=== PATIENT | female | born 1985 | race Caucasian/White ===

== ENCOUNTER 2021-05-03 09:37 | Inpatient (IN) | payer OTHER, SELFPAY ==
[2021-05-03 10:21] VITALS: BP 109/62; PULSE 75; RESP 16; TEMP 36.6; O2SAT 99
[2021-05-03] MEDS: clonazePAM 0.5 MG TABLET PO ×2 (11:38→20:09)
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
[2021-05-03 14:52] VITALS: BMI 20.9
[2021-05-03] MEDS: LORazepam 0.5 MG TABLET PO (16:37)
[2021-05-03] MEDS: Ferrous Sulfate 324 MG TABLET.DR PO (17:56)
[2021-05-03 20:05] VITALS: BP 97/56; PULSE 78; TEMP 36.4; O2SAT 96
[2021-05-03] MEDS: Prazosin HCL 1 MG CAPSULE 2 MG PO (20:08)
[2021-05-03] MEDS: Gabapentin 300 MG CAPSULE PO (20:08)
[2021-05-03] MEDS: Zolpidem Tartrate 5 MG TABLET PO (20:09)
[2021-05-03] MEDS: cloNIDine HCL 0.1 MG TABLET PO (20:24)
[2021-05-04] MEDS: LORazepam 0.5 MG TABLET PO ×2 (00:59→11:04)
[2021-05-04] MEDS: traZODone HCL 50 MG TABLET PO (00:59)
[2021-05-04 06:00] VITALS: BP 99/48; PULSE 79; RESP 17; O2SAT 98
[2021-05-04] MEDS: hydrOXYzine HCL 25 MG TABLET PO (06:23)
[2021-05-04] MEDS: ARIPiprazole 20 MG TABLET PO (08:17)
[2021-05-04] MEDS: buPROPion HCL 100 MG TABLET 200 MG PO ×2 (08:17→16:52)
[2021-05-04] MEDS: Gabapentin 300 MG CAPSULE PO ×3 (08:17→20:43)
[2021-05-04] MEDS: clonazePAM 0.5 MG TABLET PO ×2 (08:17→20:43)
[2021-05-04] MEDS: Venlafaxine HCl ER 150 MG CAP.ER.24H 300 MG PO (08:17)
[2021-05-04] MEDS: Ferrous Sulfate 324 MG TABLET.DR PO ×2 (08:17→16:51)
[2021-05-04] MEDS: Buprenorphine/Naloxone 12/3 mg FILM 1 FILM SUBLINGUAL (08:18)
[2021-05-04 09:10] LABS: Estimated Average Glucose 91 mg/dL; Hemoglobin A1c % 4.8 %
[2021-05-04 09:16] LABS: Alanine Aminotransferase 11 U/L (0-31); Albumin Level 4.1 g/dL (3.5-5.0); Alkaline Phosphatase 60 U/L (39-117); Anion Gap 10 (12-20); Aspartate Amino Transferase 10 U/L (5-31); Bilirubin Total 0.3 mg/dL (0.0-1.0); Blood Urea Nitrogen 12 mg/dL (9-16); Calcium 9.7 mg/dL (8.4-10.2); Carbon Dioxide 29 mmol/L (22-29); Chloride 102 mmol/L (96-108); Cholesterol 172 mg/dL; Creatinine Clr Calc Pharmacy 90.4; Estimated Glomerular Filt Rate > 60; Glucose Fasting 87 mg/dL (60-99); HDL Cholesterol 44 mg/dL; LDL Cholesterol Calculated 108 mg/dl; Potassium 4.4 mmol/L (3.3-5.1); Sodium 137 mmol/L (135-145); Total Protein 7.2 g/dL (6.5-8.0); Triglycerides 104 mg/dL
--- NOTE | 2021-05-04 10:40 | P.PNPSI_ITS ---
Subjective Subjective Date of Service: 05/04/21 Reason For Visit: suicide attempt Interim History: pt requesting increase in suboxone dosing to 16 mg daily, DC of latuda in favor of haldol, and increase in prazosin to 3 mg at HS due to nightmares. all of these requests were accommodated. she also asked for higher dosing of ativan, which was declined. she reported she is in withdrawal from cocaine and opioids and expects to be feeling under the weather for the next several days. no other complaints or requests at the moment. per staff, not attending groups. visible but guarded. isolative. asking for ativan. taking clonidine as well. denies SI/HI/AVH. open to IOP, has housing. Mental Status Exam Mental Status Exam Narrative: A&O. Pt in hospital vu, laying down in bed, thin body habitus. faire[place] contact, attentive. No Tics or Tremors. No abnormal involuntary movements, no PMA/PMR. Calm, guarded. Non-pressured speech, non-spontaneous with regular rate and rhythm, normal volume and prosody. No prolonged speech latency or dysarthria. Mood is ?depressed,? affect is constricted. no SI/HI/AVH expressed. Thoughts are coherent. No known cognitive or memory impairment. Insight/ Judgment limited but adequate. Diagnostics Vital Signs (24Hr): Vital Signs - 24 hr 05/03/21 20:05 05/04/21 06:00 Temperature 97.6 F Pulse Rate 78 79 Respiratory Rate 17 Blood Pressure 97/56 L 99/48 L Pulse Oximetry 96 98 BMI result Body Mass Index 20.9 Labs Results: 05/04/21 08:31 Labs: Laboratory Results - last 48 hr 05/04/21 05/04/21 08:31 08:31 Sodium 137 Potassium 4.4 Chloride 102 Carbon Dioxide 29 Anion Gap 10 L BUN 12 Creatinine 0.90 Estim Creat Clear Calc 90.4 Estimated GFR > 60 Fasting Glucose 87 Estimat Average Glucose 91 Hemoglobin A1c % 4.8 Calcium 9.7 Total Bilirubin 0.3 AST 10 ALT 11 Alkaline Phosphatase 60 Total Protein 7.2 Albumin 4.1 Triglycerides 104 Cholesterol 172 LDL Cholesterol, Calc 108 HDL Cholesterol 44 Medications Medications Current Medications Acetaminophen (Acetaminophen 325 Mg Tablet) 650 mg PO Q6H PRN PRN Reason: Headache/Pain Mild Scale (1-3) Al Hydroxide/Mg Hydroxide (Magnesium Hydrox/Alum Hydrox 30 Ml Oral.Susp) 30 ml PO Q6H PRN PRN Reason: Heartburn/Nausea Albuterol Sulfate (Albuterol Sulfate 90 Mcg 8 Gm Inhaler) 1 puff INHALE RQ4H PRN PRN Reason: sob Albuterol Sulfate (Albuterol Sulfate 90 Mcg 8 Gm Inhaler) 2 puff INHALE Q4H PRN PRN Reason: wheezing Aripiprazole (Aripiprazole 20 Mg Tablet) 20 mg PO DAILY [facility] Last Admin: 05/04/21 08:17 Dose: 20 mg Documented by: Buprenorphine/Naloxone (Buprenorphine/Naloxone 12/3 Mg Film) 1 film SUBLINGUAL DAILY [facility] Last Admin: 05/04/21 08:18 Dose: 1 film Documented by: Bupropion HCl (Bupropion Hcl 100 Mg Tablet) 200 mg PO BID [facility] Last Admin: 05/04/21 08:17 Dose: 200 mg Documented by: Clonazepam (Clonazepam 0.5 Mg Tablet) 0.5 mg PO BID [facility] Last Admin: 05/04/21 08:17 Dose: 0.5 mg Documented by: Clonidine HCl (Clonidine Hcl 0.1 Mg Tablet) 0.1 mg PO TID PRN; Protocol PRN Reason: hyperarousal Last Admin: 05/03/21 20:24 Dose: 0.1 mg Documented by: Ferrous Sulfate (Ferrous Sulfate 324 Mg Tablet.Dr) 324 mg PO BIDWM [facility] Last Admin: 05/04/21 08:17 Dose: 324 mg Documented by: Gabapentin (Gabapentin 300 Mg Capsule) 300 mg PO TID [facility] Last Admin: 05/04/21 08:17 Dose: 300 mg Documented by: Hydroxyzine HCl (Hydroxyzine Hcl 25 Mg Tablet) 25 mg PO BEDTIME PRN PRN Reason: Anxiety Last Admin: 05/04/21 06:23 Dose: 25 mg Documented by: Loperamide HCl (Loperamide Hcl 2 Mg Capsule) 2 mg PO Q6H PRN PRN Reason: diarrhea Lorazepam (Lorazepam 0.5 Mg Tablet) 0.5 mg PO Q8H PRN PRN Reason: Anxiety Last Admin: 05/04/21 00:59 Dose: 0.5 mg Documented by: Lurasidone HCl (Lurasidone Hcl 80 Mg Tablet) 80 mg PO DAILY [facility] Magnesium Hydroxide (Milk Of Magnesia 30 Ml Oral.Susp) 30 ml PO DAILY PRN PRN Reason: Constipation Nicotine Polacrilex (Nicotine Polacrilex 2 Mg Gum) 4 mg BUCCAL Q2H PRN PRN Reason: Nicotine Cravings Ondansetron HCl (Ondansetron Odt 8 Mg Tab.Rapdis) 8 mg TRANSLINGU Q8H PRN PRN Reason: nausea Prazosin HCl (Prazosin Hcl 1 Mg Capsule) 2 mg PO BEDTIME [facility]; Protocol Last Admin: 05/03/21 20:08 Dose: 2 mg Documented by: Trazodone HCl (Trazodone Hcl 50 Mg Tablet) 50 mg PO BEDTIME PRN PRN Reason: Insomnia Last Admin: 05/04/21 00:59 Dose: 50 mg Documented by: Venlafaxine HCl (Venlafaxine Hcl Er 150 Mg Cap.Er.24h) 300 mg PO DAILY [facility] Last Admin: 05/04/21 08:17 Dose: 300 mg Documented by: Zolpidem Tartrate (Zolpidem Tartrate 5 Mg Tablet) 5 mg PO BEDTIME [facility] Last Admin: 05/03/21 20:09 Dose: 5 mg Documented by: Allergies Allergies Allergy/AdvReac Type Severity Reaction Status Date / Time mayonnaise [MAYONNAISE] Allergy Unknown RASH Verified 05/04/21 06:24 seafood Allergy Unknown Rash Verified 05/04/21 06:25 Assessment & Plan Assessment & Plan (1) Bipolar II disorder: Status: Acute Code(s): F31.81 - Bipolar II disorder (2) Opioid use disorder, moderate, in early remission, on maintenance therapy: Status: Acute Code(s): F11.21 - Opioid dependence, in remission (3) Post traumatic stress disorder (PTSD): Status: Acute Code(s): F43.10 - Post-traumatic stress disorder, unspecified Plan Lulu is a 35 y.o. Female who carries a dx of Bipolar II DO, polysubstance abuse, and PTSD. She presented to [facility] via ambulance after her mother called 911 secondary pt ODing on her prescribed Ativan and Ambien, as well as intravenous heroin use. Per crisis note, this was a suicide attempt, however pt now denies that this was intentional. Pt was recently admitted to [facility] 03/21/21 due to depression, SI. On MAT, suboxone from [facility]. She is reporting struggling with anxiety and depression. Plan: Pt says she doesnt want med adjustments at this time, as she just re- started them a week ago. Pt has polypharm of abilify and latuda for unclear reasons. Also on controlled substances despite substance use hx. Will collaborate with OP provider and consider discontinuing ambien, ativan, and reducing polypharm. Placed addiction consult to talk about [facility] support and review suboxone dose. Q15 min safety checks, CV Monitor response to medications. Monitor for safety in the milieu. Discharge on stabilization. Patient seen. Chart reviewed. Discussed with team. Obtain collateral contact info?as needed 05/04: pt requested latuda be DCed and replaced with haldol 5 BID. prazosin increased to 3 mg QHS as of 05/04. suboxone dosing increased from 12 mg daily to 16 mg daily as of 05/04. supportive care for cocaine and opioid w/drawal. T/C IOP. I spent __25____ minutes with the patient and/or on the patient floor today, gre ater than?50% of which was spent counseling/coordinating care. Reason for contiued inpatient stay Substantial Risk for: inability to function and rapid decompensation
[2021-05-04] MEDS: HaloperidoL 5 MG TABLET PO (13:21)
[2021-05-04] MEDS: Buprenorphine/Naloxone 4/1 mg FILM 1 FILM SUBLINGUAL (14:53)
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
[2021-05-04 20:30] VITALS: BP 105/55; PULSE 71; RESP 16; TEMP 36.4; O2SAT 98
[2021-05-04] MEDS: Prazosin HCL 1 MG CAPSULE 3 MG PO (20:43)
[2021-05-04] MEDS: Zolpidem Tartrate 5 MG TABLET PO (20:44)
[2021-05-05] MEDS: traZODone HCL 50 MG TABLET PO (01:57)
[2021-05-05] MEDS: LORazepam 0.5 MG TABLET PO ×4 (01:57→20:25)
[2021-05-05 07:00] VITALS: BMI 21.4
[2021-05-05] MEDS: clonazePAM 0.5 MG TABLET PO (08:41)
[2021-05-05] MEDS: Gabapentin 300 MG CAPSULE PO ×3 (08:41→20:21)
[2021-05-05] MEDS: HaloperidoL 5 MG TABLET PO ×2 (08:41→13:26)
[2021-05-05] MEDS: buPROPion HCL 100 MG TABLET 200 MG PO ×2 (08:42→17:04)
[2021-05-05] MEDS: ARIPiprazole 20 MG TABLET PO (08:42)
[2021-05-05] MEDS: Ferrous Sulfate 324 MG TABLET.DR PO ×2 (08:42→17:04)
[2021-05-05] MEDS: Venlafaxine HCl ER 150 MG CAP.ER.24H 300 MG PO (08:43)
[2021-05-05] MEDS: Buprenorphine/Naloxone 8/2 mg FILM 1 FILM SUBLINGUAL ×2 (08:44→15:01)
[2021-05-05 08:52] VITALS: BP 111/55; PULSE 74; RESP 18; TEMP 36.4; O2SAT 98
--- NOTE | 2021-05-05 13:58 | HO.PSYCHPN ---
Subjective Subjective Date of Service: 05/05/21 Reason For Visit: suicide attempt Interim History: pt denies SI, states she slept well last night. appears bright, in good spirits. says this is because she is no longer in withdrawal. requesting discharge tomorrow, which is agreed to. agrees to SERGIO rascon here, planning to continue with her outpt ativan script. asks to increase prazosin to 4 mg at HS due to continued nightmares. per staff, detoxing yesterday, wanting to rest. feels meds are helping. suboxone dosing was increased yesterday. got ativan 0.5 mg PRN x1. slept after getting PRNs at 0155. calm, cooperative, pleasant. Mental Status Exam Mental Status Exam Narrative: A&O. Pt in street clothes, up and about the unit, thin body habitus.? good eye contact, attentive. No Tics or Tremors. No abnormal involuntary movements, no PMA/PMR. Calm, less guarded. Non-pressured speech, spontaneous with regular rate and rhythm, normal volume and prosody. No prolonged speech latency or dysarthria. Mood is euthymic, affect is constricted.? no SI/HI/AVH expressed.? Thoughts are coherent. No known cognitive or memory impairment. Insight/ Judgment limited but adequate. Diagnostics Vital Signs (24Hr): Vital Signs - 24 hr 05/04/21 20:30 05/05/21 08:52 Temperature 97.6 F 97.6 F Pulse Rate 71 74 Respiratory Rate 16 18 Blood Pressure 105/55 L 111/55 L Pulse Oximetry 98 98 BMI result Body Mass Index 20.9 Labs Results: 05/04/21 08:31 Labs: Laboratory Results - last 48 hr 05/04/21 05/04/21 08:31 08:31 Sodium 137 Potassium 4.4 Chloride 102 Carbon Dioxide 29 Anion Gap 10 L BUN 12 Creatinine 0.90 Estim Creat Clear Calc 90.4 Estimated GFR > 60 Fasting Glucose 87 Estimat Average Glucose 91 Hemoglobin A1c % 4.8 Calcium 9.7 Total Bilirubin 0.3 AST 10 ALT 11 Alkaline Phosphatase 60 Total Protein 7.2 Albumin 4.1 Triglycerides 104 Cholesterol 172 LDL Cholesterol, Calc 108 HDL Cholesterol 44 Medications Medications Current Medications Acetaminophen (Acetaminophen 325 Mg Tablet) 650 mg PO Q6H PRN PRN Reason: Headache/Pain Mild Scale (1-3) Al Hydroxide/Mg Hydroxide (Magnesium Hydrox/Alum Hydrox 30 Ml Oral.Susp) 30 ml PO Q6H PRN PRN Reason: Heartburn/Nausea Albuterol Sulfate (Albuterol Sulfate 90 Mcg 8 Gm Inhaler) 1 puff INHALE RQ4H PRN PRN Reason: sob Albuterol Sulfate (Albuterol Sulfate 90 Mcg 8 Gm Inhaler) 2 puff INHALE Q4H PRN PRN Reason: wheezing Aripiprazole (Aripiprazole 20 Mg Tablet) 20 mg PO DAILY [facility] Last Admin: 05/05/21 08:42 Dose: 20 mg Documented by: Buprenorphine/Naloxone (Buprenorphine/Naloxone 8/2 Mg Film) 1 film SUBLINGUAL BID@0800,1600 [facility] Last Admin: 05/05/21 08:44 Dose: 1 film Documented by: Bupropion HCl (Bupropion Hcl 100 Mg Tablet) 200 mg PO BID@0900,1700 [facility] Last Admin: 05/05/21 08:42 Dose: 200 mg Documented by: Clonidine HCl (Clonidine Hcl 0.1 Mg Tablet) 0.1 mg PO TID PRN; Protocol PRN Reason: hyperarousal Last Admin: 05/03/21 20:24 Dose: 0.1 mg Documented by: Ferrous Sulfate (Ferrous Sulfate 324 Mg Tablet.) 324 mg PO BIDWM [facility] Last Admin: 05/05/21 08:42 Dose: 324 mg Documented by: Gabapentin (Gabapentin 300 Mg Capsule) 300 mg PO TID [facility] Last Admin: 05/05/21 08:41 Dose: 300 mg Documented by: Haloperidol (Haloperidol 5 Mg Tablet) 5 mg PO BID@0900,1300 [facility] Last Admin: 05/05/21 13:26 Dose: 5 mg Documented by: Hydroxyzine HCl (Hydroxyzine Hcl 25 Mg Tablet) 25 mg PO BEDTIME PRN PRN Reason: Anxiety Last Admin: 05/04/21 06:23 Dose: 25 mg Documented by: Loperamide HCl (Loperamide Hcl 2 Mg Capsule) 2 mg PO Q6H PRN PRN Reason: diarrhea Lorazepam (Lorazepam 0.5 Mg Tablet) 0.5 mg PO TID PRN PRN Reason: Anxiety Magnesium Hydroxide (Milk Of Magnesia 30 Ml Oral.Susp) 30 ml PO DAILY PRN PRN Reason: Constipation Nicotine Polacrilex (Nicotine Polacrilex 2 Mg Gum) 4 mg BUCCAL Q2H PRN PRN Reason: Nicotine Cravings Ondansetron HCl (Ondansetron Odt 8 Mg Tab.Rapdis) 8 mg TRANSLINGU Q8H PRN PRN Reason: nausea Prazosin HCl (Prazosin Hcl 1 Mg Capsule) 4 mg PO BEDTIME JOAQUIN; Protocol Trazodone HCl (Trazodone Hcl 50 Mg Tablet) 50 mg PO BEDTIME PRN PRN Reason: Insomnia Last Admin: 05/05/21 01:57 Dose: 50 mg Documented by: Venlafaxine HCl (Venlafaxine Hcl Er 150 Mg Cap.Er.24h) 300 mg PO DAILY [facility] Last Admin: 05/05/21 08:43 Dose: 300 mg Documented by: Zolpidem Tartrate (Zolpidem Tartrate 5 Mg Tablet) 5 mg PO BEDTIME [facility] Last Admin: 05/04/21 20:44 Dose: 5 mg Documented by: Allergies Allergies Allergy/AdvReac Type Severity Reaction Status Date / Time mayonnaise [MAYONNAISE] Allergy Unknown RASH Verified 05/04/21 06:24 seafood Allergy Unknown Rash Verified 05/04/21 06:25 Assessment & Plan Assessment & Plan (1) Post traumatic stress disorder (PTSD): Status: Acute Code(s): F43.10 - Post-traumatic stress disorder, unspecified (2) Opioid use disorder: Status: Acute Code(s): F11.90 - Opioid use, unspecified, uncomplicated Plan Lulu is a 35 y.o. Female who carries a dx of Bipolar II DO, polysubstance abuse, and PTSD. She presented to [facility] ED via ambulance after her mother called 911 secondary pt ODing on her prescribed Ativan and Ambien, as well as intravenous heroin use. Per crisis note, this was a suicide attempt, however pt now denies that this was intentional. Pt was recently admitted to [facility] 03/21/21 due to depression, SI. On MAT, suboxone from [facility]. She is reporting struggling with anxiety and depression. Plan: Pt says she doesnt want med adjustments at this time, as she just re-started them a week ago. Pt has polypharm of abilify and latuda for unclear reasons. Also on controlled substances despite substance use hx. Will collaborate with OP provider and consider discontinuing ambien, ativan, and reducing polypharm. Placed addiction consult to talk about technician terminal and repeater support and review suboxone dose. Q15 min safety checks, CV Monitor response to medications. Monitor for safety in the milieu. Discharge on stabilization. Patient seen. Chart reviewed. Discussed with team. Obtain collateral contact info?as needed 05/04: pt requested latuda be DCed and replaced with haldol 5 BID.? prazosin increased to 3 mg QHS as of 05/04, 4 mg as of 05/05.? suboxone dosing increased from 12 mg daily to 16 mg daily as of 05/04.? supportive care for cocaine and opioid w/drawal.? T/C IOP. discharge 05/06 per pt request. I spent ___25___ minutes with the patient and/or on the patient floor today, greater than?50% of which was spent counseling/coordinating care. Reason for contiued inpatient stay Substantial Risk for: inability to function and rapid decompensation
--- NOTE | 2021-05-05 15:25 | MHC.RECOVRN ---
Met with pt to follow up after Suboxone dose increase. Pt states I feel great. Difficult to engage pt in conversation, very flat affect. Pt denies GI upset and withdrawal symptoms. Plans to continue with Suboxone at [facility] in [place]. Discussed with Jeri Young APRN.
[2021-05-05] MEDS: Zolpidem Tartrate 5 MG TABLET PO (20:21)
[2021-05-05] MEDS: Prazosin HCL 1 MG CAPSULE 4 MG PO (20:21)
[2021-05-05 20:25] VITALS: BP 115/71; PULSE 93; RESP 18; O2SAT 97
[2021-05-06] MEDS: traZODone HCL 50 MG TABLET PO (00:36)
[2021-05-06] MEDS: buPROPion HCL 100 MG TABLET 200 MG PO (08:26)
[2021-05-06] MEDS: HaloperidoL 5 MG TABLET PO (08:26)
[2021-05-06] MEDS: ARIPiprazole 20 MG TABLET PO (08:26)
[2021-05-06] MEDS: Venlafaxine HCl ER 150 MG CAP.ER.24H 300 MG PO (08:27)
[2021-05-06] MEDS: Gabapentin 300 MG CAPSULE PO (08:27)
[2021-05-06] MEDS: Ferrous Sulfate 324 MG TABLET.DR PO (08:27)
[2021-05-06] MEDS: Buprenorphine/Naloxone 8/2 mg FILM 1 FILM SUBLINGUAL (08:28)
[2021-05-06] MEDS: LORazepam 0.5 MG TABLET PO (08:30)
[2021-05-06 08:34] VITALS: BP 120/71; PULSE 81; RESP 18; TEMP 36.3; O2SAT 98
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
--- NOTE | 2021-05-06 11:10 | PC.NURSE ---
Discharge note: Patient alert, oriented x3. Patient reports she is eager for discharge, states her daughter has an event that she would like to attend. Patient denies SI/HI, denies AH/VH. Reviewed discharge planning w/ patient, patient verbalized understanding. No concerns reported.
== END 2021-05-06 11:11 | disposition home or self-care (01) | DRG 753 ==
PROVIDERS: Admitting Provider Psychiatry & Neurology Psychiatry; PCP Internal Medicine; Visit Provider Psychiatry & Neurology Psychiatry
DX: F31.81 Bipolar II disorder (principal); R45.851 Suicidal ideations; F43.10 Post-traumatic stress disorder, unspecified; F11.20 Opioid dependence, uncomplicated; F17.210 Nicotine dependence, cigarettes, uncomplicated; Z71.6 Tobacco abuse counseling; Z91.013 Allergy to seafood; Z79.899 Other long term (current) drug therapy
CPT/HCPCS: 36415; 80053; 80061; 83036

== ENCOUNTER 2024-01-08 08:58 | Emergency (ER) | payer MEDICAID, SELFPAY ==
[2024-01-08 09:07] VITALS: PULSE 75; RESP 16; TEMP 36.3; O2SAT 97; BMI 24.1
== END 2024-01-08 12:20 | disposition left against medical advice (07) ==
PROVIDERS: Emergency Provider Emergency Medicine
DX: K13.79 Other lesions of oral mucosa (principal); Z53.21 Procedure and treatment not carried out due to patient leaving prior to being seen by health care provider
CPT/HCPCS: 99281

== ENCOUNTER 2024-02-25 19:56 | Emergency (ER) | payer MEDICAID, SELFPAY ==
[2024-02-25 20:12] VITALS: BP 168/100; PULSE 126; O2SAT 97
--- NOTE | 2024-02-25 20:13 | ED.GENADULT ---
HPI - General Adult General Stated complaint: flu symptoms Related Data Previous Rx's ?Medication ?Instructions ?Recorded albuterol sulfate 90 mcg/actuation 2 puff inhalation Q4H PRN wheezing 05/06/21 aerosol inhaler (Ventolin HFA) 30 days #1 g aripiprazole 20 mg tablet (Abilify) 20 mg PO DAILY 30 days #30 tabs 05/06/21 buprenorphine 8 mg-naloxone 2 mg 1 film sublingual BID@0800,1600 3 05/06/21 sublingual film (Suboxone) days #6 ea bupropion HCl 100 mg tablet 200 mg (2 x 100 mg) PO 05/06/21 BID@0900,1700 30 days #120 tabs clonidine HCl 0.1 mg tablet 0.1 mg PO TID PRN hyperarousal 30 05/06/21 days #90 tabs ferrous sulfate 324 mg (65 mg 324 mg PO BIDWM 30 days #60 tabs 05/06/21 iron) tablet,delayed release gabapentin 300 mg capsule 300 mg PO TID 30 days #90 caps 05/06/21 haloperidol 5 mg tablet 5 mg PO BID@0900,1300 30 days #60 05/06/21 tabs hydroxyzine HCl 25 mg tablet 25 mg PO BEDTIME PRN Anxiety 30 05/06/21 days #30 tabs lorazepam 0.5 mg tablet 0.5 mg PO TID PRN Anxiety 4 days 05/06/21 #12 tabs prazosin 1 mg capsule 4 mg PO BEDTIME 30 days #120 caps 05/06/21 trazodone 50 mg tablet 50 mg PO BEDTIME PRN Insomnia 30 05/06/21 days #30 tabs venlafaxine 150 mg 300 mg (2 x 150 mg) PO DAILY 30 05/06/21 capsule,extended release 24 hr days #60 caps zolpidem 5 mg tablet 5 mg PO BEDTIME 4 days #4 tabs 05/06/21 Allergies Allergy/AdvReac Type Severity Reaction Status Date / Time [facility]] Allergy Unknown RASH Verified 01/08/24 09:08 seafood Allergy Unknown Rash Verified 01/08/24 09:08 [facility] Past Medical History Medical History (Updated 05/14/21 @ 00:02 by Background Daemon) Opioid use disorder, moderate, in early remission, on maintenance therapy Asthma Social History Social History Household Members: None Housing: Apartment Do you presently have visiting nurse or other home services: Yes (Does not know provider) Patient Tobacco Use Status: Current everyday Tobacco user Tobacco use type: Cigarette Cigarette Packs Per Day: 1 Cigarettes Per Day: 20.0 Years Smoked: 20 years e-Cigarette/Vaping Use: Never Used Second Hand Smoke Exposure: No Substance Use Type: Heroin service: No Sexual orientation: Did not discuss. Course Course Course Narrative: RME, this is a rapid medical exam performed by Osmani Aragon please refer to primary provider for complete H&P- 38-year-old female presents for evaluation of abdominal cramping, vomiting, diarrhea since last night after eating dinner. For labs, urinalysis, viral swabs Discharge Plan Discharge Prescriptions: No Action clonidine HCl 0.1 mg Tablet 0.1 mg PO TID PRN (Reason: hyperarousal) 30 Days Qty: 90 0RF Protocol: Hold for SBP< HOLD for SBP < : 90 haloperidol 5 mg Tablet 5 mg PO BID@0900,1300 30 Days Qty: 60 0RF trazodone 50 mg Tablet 50 mg PO BEDTIME PRN (Reason: Insomnia) 30 Days Qty: 30 0RF prazosin 1 mg Capsule 4 mg PO BEDTIME 30 Days Qty: 120 0RF Protocol: Hold for SBP< HOLD for SBP < : 90 venlafaxine 150 mg Capsule,Extended Release 24hr 300 mg PO DAILY 30 Days Qty: 60 0RF bupropion HCl 100 mg Tablet 200 mg PO BID@0900,1700 30 Days Qty: 120 0RF lorazepam 0.5 mg Tablet 0.5 mg PO TID PRN (Reason: Anxiety) 4 Days Qty: 12 0RF gabapentin 300 mg Capsule 300 mg PO TID 30 Days Qty: 90 0RF hydroxyzine HCl 25 mg Tablet 25 mg PO BEDTIME PRN (Reason: Anxiety) 30 Days Qty: 30 0RF zolpidem 5 mg Tablet 5 mg PO BEDTIME 4 Days Qty: 4 0RF albuterol sulfate [Ventolin HFA] 90 mcg/actuation Hfa Aerosol Inhaler 2 puff inhalation Q4H PRN (Reason: wheezing) 30 Days Qty: 1 0RF aripiprazole [Abilify] 20 mg Tablet 20 mg PO DAILY 30 Days Qty: 30 0RF ferrous sulfate 324 mg (65 mg iron) Tablet,Delayed Release (Dr/Ec) 324 mg PO BIDWM 30 Days Qty: 60 0RF buprenorphine-naloxone [Suboxone] 8-2 mg Film 1 film sublingual BID@0800,1600 3 Days Qty: 6 0RF Print Language: Czech
[2024-02-25 20:14] VITALS: BP 125/80; PULSE 130; RESP 22; TEMP 37; O2SAT 96; BMI 25.6
[2024-02-25 20:42] LABS: MANUAL DIFF FLAG NO
[2024-02-25 20:43] LABS: Basophils Percent Auto 0.5 % (0-2); Hematocrit 36.6 % (37.0-47.0); Hemoglobin 12.7 g/dl (12.0-16.0); Imm Gran Abs Auto 0.03 X10*3/uL (0.00-0.03); Imm Gran Pct Auto 0.4 % (0.0-0.4); Lymphocytes Absolute Auto 1.8 X10*3/uL (1.2-4.9); Lymphocytes Percent Auto 20.8 % (20-40); Mean Corpuscular HGB Conc 34.7 g/dl (31.0-35.0); Mean Corpuscular Hemoglobin 29.3 pg (27.0-33.0); Mean Corpuscular Volume 84.3 fL (80.0-98.0); Monocytes Absolute Auto 0.6 X10*3/uL (0.1-1.2); Monocytes Percent Auto 6.5 % (2-11); Neutrophils Absolute Auto 6.1 x10*3/uL (2.0-8.3); Neutrophils Percent Auto 71.8 % (45-73); Platelet Count 296 X10*3/uL (160-400); Red Blood Count 4.34 X10*6/uL (4.20-5.50); Red Cell Distribution Width 13.6 % (11.0-16.0); White Blood Count 8.4 X10*3/uL (4.8-10.8)
[2024-02-25 21:18] LABS: Alanine Aminotransferase 113 U/L (0-31); Albumin Level 4.7 g/dL (3.5-5.0); Alkaline Phosphatase 90 U/L (39-117); Anion Gap 15 (12-20); Aspartate Amino Transferase 107 U/L (5-31); Bilirubin Total 0.5 mg/dL (0.0-1.0); Blood Urea Nitrogen 16 mg/dL (9-16); Calcium 9.8 mg/dL (8.4-10.2); Carbon Dioxide 19 mmol/L (22-29); Chloride 109 mmol/L (96-108); Creatinine Clr Calc Pharmacy 84.7; Estimated Glomerular Filt Rate > 60; Glucose Random 127 mg/dL (60-115); Influenza A PCR POSITIVE (Negative); Influenza B PCR NEGATIVE (Negative); Lipase 16 U/L (8-78); Potassium 3.5 mmol/L (3.3-5.1); Resp Syncy Virus RNA Qual PCR NEGATIVE (Negative); SARS COV2 PCR INHOUSE NEGATIVE (Negative); Sodium 139 mmol/L (135-145); Total Protein 8.5 g/dL (6.5-8.0)
[2024-02-25 21:24] LABS: HCG Quantitative < 2 mIU/mL
== END 2024-02-26 00:53 | disposition left against medical advice (07) ==
PROVIDERS: Physician Assistant; Emergency Provider Emergency Medicine Emergency Medical Services
DX: R10.9 Unspecified abdominal pain (principal); R11.10 Vomiting, unspecified; R19.7 Diarrhea, unspecified; Z03.818 Encounter for observation for suspected exposure to other biological agents ruled out
CPT/HCPCS: 0241U; 80053; 83690; 84702; 85025; 99281

== ENCOUNTER 2024-02-29 05:04 | Inpatient (IN) | payer OTHER, SELFPAY ==
--- NOTE | ~2024-02-29 | XR_ITS ---
CLINICAL HISTORY: cough, pt concerned for pneumonia 2 views chest Comparison: None Findings: Cardiac and mediastinal contours are normal. Mild interstitial prominence. No focal consolidation. No effusion. No pneumothorax. No acute osseous finding. Impression: Mild interstitial prominence. No focal consolidation. This document has been electronically signed by: Jeffery Jean Baptiste MD on 02/29/2024 06:13:20
[2024-02-29 05:10] VITALS: BP 122/68; PULSE 76; RESP 26; O2SAT 96; BMI 28.1
[2024-02-29 05:22] VITALS: BP 109/62; PULSE 108; RESP 18; TEMP 36.7; O2SAT 96
--- NOTE | 2024-02-29 05:35 | PC.NURSE ---
pt biba from home after she called the ambulance for herself c/o SI w/o a plan. pt reports hx IVDU - heroin/crack. pt noted to be aggressive/agitated upon EMS arrival - threatening to kill staff. refused vitals. pt changed over by security - belongings placed in locker #3. 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 pt repetitively stated, i'm going to kill you! you don't know me. i will find you and i will kill you or i will have someone else do it! pt difficult to redirect but calm/cooperative once pt was provided w/ gingerale and a sandwich. labs/urine obtained/sent to lab. pt noted to have a productive cough during assessment. pt states she is concerned for pneumonia. swabs obtained/sent to lab. chest xray ordered. pt seems to be in no respiratory distress - no sob/wob noted. respirations even/unlabored. pt endorsing SI w/o a plan d/t feeling depressed and being noncompliant w/ medication x 1 month aside from methadone. pt reports she has been noncompliant w/ medication as she states she has been unable to make an appointment w/ a psychiatrist. pt verbalizes she takes 115mg of methadone at [facility] in [place]. methadone dose verified w/ LLOYD Mcnamara at [facility]. verification form filled out/faxed to pharmacy. pt also reporting increased use of IVDU - states she used heroin intravenously x sometime yesterday as well as crack via inhalation. COWS = 6 at this time. pt now resting in room in no apparent distress. plan of care ongoing.
[2024-02-29 05:42] LABS: Basophils Percent Auto 0.2 % (0-2); Hematocrit 35.2 % (37.0-47.0); Hemoglobin 12.4 g/dl (12.0-16.0); Imm Gran Abs Auto 0.06 X10*3/uL (0.00-0.03); Imm Gran Pct Auto 0.4 % (0.0-0.4); Lymphocytes Percent Auto 17.3 % (20-40); MANUAL DIFF FLAG SCAN; Mean Corpuscular HGB Conc 35.2 g/dl (31.0-35.0); Mean Corpuscular Hemoglobin 29.4 pg (27.0-33.0); Mean Corpuscular Volume 83.4 fL (80.0-98.0); Mean Platelet Volume 10.2 fL (9.4-12.3); Monocytes Percent Auto 11.4 % (2-11); Neutrophils Absolute Auto 12.1 x10*3/uL (2.0-8.3); Neutrophils Percent Auto 70.7 % (45-73); Platelet Count 234 X10*3/uL (160-400); Red Blood Count 4.22 X10*6/uL (4.20-5.50); Red Cell Distribution Width 13.7 % (11.0-16.0); SCAN SMEAR FLAG 1; White Blood Count 17.1 X10*3/uL (4.8-10.8)
--- NOTE | 2024-02-29 05:42 | MHC.EDTECH ---
Patient BIBA. patient agitated with having belongings and drink taken away during change attendant process. Patient swearing and threatening staff. Vitals signs were attempted but patient pull off BP cuff and pulse ox and threw them on the ground. Patient changed over with security into green vu and pants. Patient labs obtained and vitals reassessed and documented. Patient to -3 bed. Patient belongings in POD locker 3
[2024-02-29 05:43] LABS: Appearance Urine Cloudy; Color Urine Dark Yellow; Glucose Urine UA Negative (Negative); Leukocyte Esterase Urine Small (1+) (Negative); Nitrite Urine Positive (Negative); Specific Gravity - Urine 1.025 (1.005-1.025); UMIC TRIGGER UACC YES; Urine Blood Moderate (2+) (Negative); Urine Ketones 40 mg/dL (Negative); Urine Protein 30 (1+) mg/dL (Neg-Trace)
[2024-02-29 05:49] VITALS: PULSE 108
[2024-02-29 05:54] LABS: Bacteria Urine 4+ (None Seen); UACC Culture Trigger YES
[2024-02-29 05:56] LABS: Amphetamine Screen Urine Not Detected (Not Detect); Barbiturates, Urine Not Detected (Not Detect); Benzodiazepines Screen Urine POSITIVE (Not Detect); Buprenorphine Scr Not Detected (Not Detect); Cannabinoid Screen Urine Not Detected (Not Detect); Cocaine Screen Urine POSITIVE (Not Detect); Fentanyl, urine POSITIVE (Not Detect); Methadone Screen, Urine Positive (Not Detect); Opiate Screen Urine POSITIVE (Not Detect); Oxycodone Screen Urine Not Detected (Not Detect); Phencyclidine Screen Urine Not Detected (Not Detect)
--- NOTE | 2024-02-29 06:00 | PC.NURSE ---
pt escorted to [employer]X FA[employer]ORY w/ tech as well as security at this time.
[2024-02-29 06:02] LABS: Acetaminophen LAB < 3 mcg/mL (<30); Alanine Aminotransferase 196 U/L (0-31); Albumin Level 4.2 g/dL (3.5-5.0); Alkaline Phosphatase 66 U/L (39-117); Anion Gap 17 (12-20); Aspartate Amino Transferase 310 U/L (5-31); Bilirubin Total 0.6 mg/dL (0.0-1.0); Blood Urea Nitrogen 16 mg/dL (9-16); Calcium 8.2 mg/dL (8.4-10.2); Carbon Dioxide 19 mmol/L (22-29); Chloride 102 mmol/L (96-108); Creatinine Clr Calc Pharmacy 107.6; Estimated Glomerular Filt Rate > 60; Glucose Random 82 mg/dL (60-115); Potassium 4.2 mmol/L (3.3-5.1); Salicylate < 5.0 mg/dL (15-30); Sodium 134 mmol/L (135-145); Total Protein 8.1 g/dL (6.5-8.0)
[2024-02-29 06:03] LABS: SLIDE REVIEW VERIFIED
[2024-02-29 06:19] LABS: Influenza A PCR POSITIVE (Negative); Influenza B PCR NEGATIVE (Negative); Resp Syncy Virus RNA Qual PCR NEGATIVE (Negative); SARS COV2 PCR INHOUSE NEGATIVE (Negative)
--- NOTE | 2024-02-29 06:40 | HE.PHANOTE ---
METHADONE VERIFICATION Dose: 115mg, last dosed 02/28/24 @0852 per Anders DESAI at [facility].
--- NOTE | 2024-02-29 06:43 | ED.GENADULT ---
HPI - General Adult General Chief complaint: Psychiatric Symptoms Stated complaint: SI w/o plan, has heroin crack & cocaine on board Time Seen by Provider: 02/29/24 06:42 Source: patient Mode of arrival: ambulatory Limitations: no limitations History of Present Illness ED Provider: Alberto SPENCE HPI narrative: 38-year-old female history of IV drug abuse, PTSD, bipolar, asthma presenting to the emergency department with suicidal ideation with no particular plan unclear how long she has been feeling this way for. She reports that she uses heroin and crack does not tell us last time she used. Upon arrival to the emergency department she is agitated and uncooperative. She is refusing vitals and stating she wants to kill staff Related Data Home Medications ?Medication ?Instructions ?Recorded ?Confirmed methadone 10 mg/mL oral 115 mg PO DAILY 02/29/24 02/29/24 concentrate (Methadose) Allergies Allergy/AdvReac Type Severity Reaction Status Date / Time mayonnaise [MAYONNAISE] Allergy Unknown RASH Verified 02/29/24 05:15 seafood Allergy Unknown Rash Verified 02/29/24 05:15 Review of Systems Review of Systems: Yes all other systems are reviewed and are negative PMFSH Past Medical History Attestation statement: The following information was validated with the patient. Source: old records reviewed and nursing notes reviewed Medical History Opioid use disorder, moderate, in early remission, on maintenance therapy Asthma Social History Social History Household Members: None Housing: Apartment Do you presently have visiting nurse or other home services: Yes (Does not know provider) Patient Tobacco Use Status: Current everyday Tobacco user Tobacco use type: Cigarette Cigarette Packs Per Day: 1 Cigarettes Per Day: 20.0 Years Smoked: 20 years Smoked in Last 30 Days: No e-Cigarette/Vaping Use: Never Used Second Hand Smoke Exposure: No Use of substances other than those prescribed or required for medical reasons: Yes Substance Use Type: Crack/Cocaine, Heroin and IV Drugs Substance Use Frequency: Daily Last Used Substance: Hours (ago) Any prior treatment program specific to substance use: Yes Advance Directives: No Advance Directives Information Provided: Yes Do you have a plan to hurt others: No Plan Patient : No service: No Sexual orientation: Did not discuss. Physical Exam ED Vital Signs: Vital Signs - 24 hr 02/29/24 05:10 02/29/24 05:22 Temperature 98.0 F Pulse Rate 108 H Respiratory Rate 26 H 18 Blood Pressure 109/62 Pulse Oximetry 96 Oxygen Delivery Method Room Air BMI result Body Mass Index 28.1 vss Appearance: Alert.? Oriented X3.? No acute distress.? Head: Normocephalic, atraumatic, no step-offs or deformities Eyes: Pupils equal, round and reactive to light.? Neck: Normal inspection.? Neck supple.? CVS: Normal heart rate and rhythm.? Pulses normal.? Respiratory: No respiratory distress.? Breath sounds normal.? Abdomen: Soft and nontender.? Skin: Skin warm and dry.? Normal skin color.? Normal skin turgor.? Extremities: No lower extremity edema.? No calf ttp. 5/5 strength to bilateral upper and lower extremities Neuro: Oriented X 3.? No motor deficit.? No sensory deficit. CN 2-12 intact Course Reevaluation(s) Reevaluation #1: CBC with leukocytosis 17.1 no left shift no signs of systemic illness. Chemistry with low sodium 134 patient tolerating p.o.. No signs of hyponatremia on exam. Transaminases elevated in a nearly 2-1 fashion likely secondary to drug/alcohol. UA with evidence of infection which could explain patient's leukocytosis. Will give p.o. Ceftin at this time. No indication for IV antibiotics. Toxicology positive for opiates, methadone, fentanyl, benzos, cocaine. Ethanol, acetaminophen salicylates negative. Patient is noted to be influenza A positive however she has been since 02/25/2024, asymptomatic at this time. No further intervention needed. At this time patient to be placed into observation to allow more time to be evaluated by care team. At time observation started patient common cooperative no acute distress will continue to monitor Time: 08:45 Medications Administered Generic Name Dose Route Start Last Admin Trade Name Freq PRN Reason Stop Dose Admin Cefuroxime Axetil 250 mg 02/29/24 09:00 02/29/24 08:30 Cefuroxime Axetil 250 Mg Tablet PO 03/07/24 08:59 250 mg BID JOAQUIN Administration Methadone HCl 115 mg 02/29/24 09:00 02/29/24 08:28 Methadone Hcl 20 Mg/2 Ml Oral.Conc PO 115 mg DAILY JOAQUIN Administration Discontinued Medications Generic Name Dose Route Start Last Admin Trade Name Dajuan PRN Reason Stop Dose Admin Cefuroxime Axetil 250 mg 02/29/24 06:51 02/29/24 07:38 Cefuroxime Axetil 250 Mg Tablet PO 02/29/24 06:52 Not Given ONCE ONE Medical Decision Making Medical Decision Making [facility] Narrative: 0645 38 year old female presents for SI no particular plan. Not cooperative on arrival. PE benign hx and pe concerning for polysubstance abuse. Patient recently had the flu but no URI sx. Will rule out UTI and electrolyte abnormalities. plan labs, urine, peoples, care Differential Diagnosis Differential Diagnoses: The differential diagnosis associated with the presentation includes ( hx and pe concerning for polysubstance abuse. Patient recently had the flu but no URI sx. Will rule out UTI and electrolyte abnormalities. ) Admission/Observation Consideration of admission/observation: Escalation of care including admission/observation considered Lab Data [facility] Lab Attestation statement: I reviewed the patient's lab results. 02/29/24 05:35 02/29/24 05:35 Labs: Lab Results 02/29/24 Range/Units 05:35 WBC 17.1 H (4.8-10.8) X10*3/uL RBC 4.22 (4.20-5.50) X10*6/uL Hgb 12.4 (12.0-16.0) g/dl Hct 35.2 L (37.0-47.0) % MCV 83.4 (80.0-98.0) fL MCH 29.4 (27.0-33.0) pg MCHC 35.2 H (31.0-35.0) g/dl RDW 13.7 (11.0-16.0) % Plt Count 234 (160-400) X10*3/uL MPV 10.2 (9.4-12.3) fL Immature Gran % (Auto) 0.4 (0.0-0.4) % Neut % (Auto) 70.7 (45-73) % Lymph % (Auto) 17.3 L (20-40) % Routt % (Auto) 11.4 H (2-11) % Eos % (Auto) 0.0 (0-4) % Baso % (Auto) 0.2 (0-2) % Lymph # (Auto) 3.0 (1.2-4.9) X10*3/uL Routt # (Auto) 2.0 H (0.1-1.2) X10*3/uL Eos # (Auto) 0.0 (0.0-0.4) X10*3/uL Baso # (Auto) 0.0 (0.0-0.2) X10*3/uL Abs Immat Gran (auto) 0.06 H (0.00-0.03) X10*3/uL Absolute Neuts (auto) 12.1 H (2.0-8.3) x10*3/uL Absolute Nucleated RBC 0.000 (0.0-0.012) X10*3/uL Nucleated RBC % (auto) 0.0 (0.0-0.2) /100WBC Smear Tech's Comments VERIFIED Sodium 134 L (135-145) mmol/L Potassium 4.2 (3.3-5.1) mmol/L Chloride 102 (96-108) mmol/L Carbon Dioxide 19 L (22-29) mmol/L Anion Gap 17 (12-20) BUN 16 (9-16) mg/dL Creatinine 0.82 (0.5-1.4) mg/dL Estim Creat Clear Calc 107.6 Estimated GFR > 60 Random Glucose 82 (60-115) mg/dL Calcium 8.2 L D (8.4-10.2) mg/dL Total Bilirubin 0.6 (0.0-1.0) mg/dL AST 310 H (5-31) U/L ALT 196 H (0-31) U/L Alkaline Phosphatase 66 (39-117) U/L Total Protein 8.1 H (6.5-8.0) g/dL Albumin 4.2 (3.5-5.0) g/dL Urine Color Dark Yellow Urine Appearance Cloudy Urine pH 6.0 (5.0-9.0) Ur Specific [place] 1.025 (1.005-1.025) Urine Protein 30 (1+) H (Neg-Trace) mg/dL Urine Glucose (UA) Negative (Negative) mg/dL Urine Ketones 40 (Negative) mg/dL Urine Blood Moderate (2+) H (Negative) Urine Nitrite Positive H (Negative) Ur Leukocyte Esterase Small (1+) H (Negative) Urine RBC 6-10 H (0-2) /HPF Urine WBC 6-10 H (0-5) /HPF Ur Squamous Epith Cells 6-10 (0-2) /HPF Urine Bacteria 4+ (None Seen) Hyaline Casts 3-5 (0-2) /LPF Salicylates < 5.0 L (15-30) mg/dL Urine Opiates Screen POSITIVE H (Not Detect) Ur Buprenorphine Scrn Not Detected (Not Detect) ng/mL Ur Oxycodone Screen Not Detected (Not Detect) ng/mL Urine Methadone Screen Positive H (Not Detect) ng/mL Urine Fentanyl Screen POSITIVE H (Not Detect) Acetaminophen < 3 (<30) mcg/mL Ur Barbiturates Screen Not Detected (Not Detect) Ur Phencyclidine Scrn Not Detected (Not Detect) Ur Amphetamines Screen Not Detected (Not Detect) U Benzodiazepines Scrn POSITIVE H (Not Detect) Urine Cocaine Screen POSITIVE H (Not Detect) U Marijuana (THC) Screen Not Detected (Not Detect) Ethyl Alcohol < 10 mg/dL Influenza Type A (PCR) POSITIVE A (Negative) Influenza Type B (PCR) NEGATIVE (Negative) RSV RNA Qual (PCR) NEGATIVE (Negative) SARS-CoV-2 RNA (RT-PCR) NEGATIVE (Negative) External Record Review External record reviewed: Inpatient record, Office record, Outpatient record, Prior outpatient labs, Prior outpatient radiology, Primary care record and Outside ED record Prescription Management I considered prescription management with: Antibiotic Chronic Conditions Patient?s care impacted by: Other (IVDA ) Critical Care Time Critical Care Time Critical Care Time: No Discharge Plan Discharge Clinical Impression: Bipolar II disorder, Opioid use disorder, Influenza A, UTI (urinary tract infection) Patient Disposition: Still a Patient Prescriptions: No Action methadone [Methadose] 10 mg/mL Concentrate 115 mg PO DAILY Interventions: Bond-Suicide Risk Severity Scale Last Done: 02/29/24 05:40 Print Language: Hong Konger
[2024-02-29 06:46] LABS: Ethanol < 10 mg/dL
--- NOTE | 2024-02-29 07:07 | PC.NURSE ---
Assumed care of patient at 0645, patient appears to be in no apparent distress this am. Continue plan for care team derek
--- OUTSIDE RECORDS SUMMARY | 2024-02-29 08:04 | XMS_ITS | Clinical Summary ---
Author Organization Unknown Care Team Providers Care Back Grinder Name Role Phone SWETA GUILLEN, RAF RO RN, CLINICAL NAVIGATOR, DEEPA Brownlee Payers Payer Name Policy Type Policy Number Effective Date Expira tion Date [facility] [place] [place] [employer] [id number] MEDICAID [facility] [id number] Problems Condition Name Condition Details Condition Category Status Onset Date Resolution Date Last Treatment Date Treating Clinician Comments MAJOR DEPRESSIVE DISORDER, RECURRENT, UNSPECIFIED Active 03-24 00:00: 00 Allergies, Adverse Reactions, Alerts Allergy Name Allergy Type Status Severity Reaction(s) Onset Date Inactive Date Treating Clinician Comments NKA Propensity to adverse reactions Active 2021-10 13:01:3 2 Medications Ordered Medication Name Filled Medication Name Start Date Stop Date Current Medication? Ordering Clinician Indication Dosage Frequency Signature (SIG) Comments Components ProAir HFA 90 mcg/actuati on aerosol inhaler 03-21 00:00: 00 Yes [id number] 2 puff EVERY 4 HOURS 2 puff EVERY 4 HOURS (route: inhalation ) Med Classific ation: Respirato ry Therapy Agents ferrous sulfate 325 mg (65 mg iron) tablet,wally yed release 03-21 00:00: 00 11-24 00:00 :00 No [id number] 1 tablet DAILY 1 tablet DAILY (route: oral) Med Classific ation: Electroly te Balance-N utritiona l Products gabapentin 300 mg capsule 02-27 00:00: 00 11-24 00:00 :00 No [id number] 1 capsule 3 TIMES DAILY 1 capsule 3 TIMES DAILY (route: oral) Med Classific ation: Central Nervous System Agents docusate sodium 100 mg capsule 03-21 00:00: 00 Yes [id number] 1 capsule 2 TIMES DAILY 1 capsule 2 TIMES DAILY (route: oral) Med Classific ation: Gastroint estinal Therapy Agents Abilify 10 mg tablet 03-27 00:00: 00 Yes [id number] 2 tablet DAILY 2 tablet DAILY (route: oral) Med Classific ation: Central Nervous System Agents Ambien 5 mg tablet 03-27 00:00: 00 Yes [id number] 2 tablet BEDTIME 2 tablet BEDTIME (route: oral) Med Classific ation: Central Nervous System Agents Effexor XR 150 mg capsule,ext ended release 03-27 00:00: 00 Yes [id number] 2 capsule DAILY 2 capsule DAILY (route: oral) Med Classific ation: Central Nervous System Agents Latuda 80 mg tablet 03-27 00:00: 00 11-24 00:00 :00 No [id number] 1 tablet DAILY 1 tablet DAILY (route: oral) Med Classific ation: Central Nervous System Agents lorazepam 0.5 mg tablet 03-27 00:00: 00 Yes [id number] .5 tablet 2 TIMES DAILY .5 tablet 2 TIMES DAILY (route: oral) Med Classific ation: Central Nervous System Agents prazosin 1 mg capsule 03-27 00:00: 00 Yes [id number] 2 capsule BEDTIME 2 capsule BEDTIME (route: oral) Med Classific ation: Cardiovas cular Therapy Agents Suboxone 4 mg-1 mg sublingual film 03-27 00:00: 00 11-24 00:00 :00 No [id number] 1 film 2 TIMES DAILY 1 film 2 TIMES DAILY (route: sublingual ) Med Classific ation: Chemical Dependenc y, Agents to Treat Wellbutrin SR 200 mg tablet, 12 hr sustained-r elease 03-27 00:00: 00 Yes [id number] 1 tablet 2 TIMES DAILY 1 tablet 2 TIMES DAILY (route: oral) Med Classific ation: Central Nervous System Agents ondansetron 4 mg disintegrat ing tablet 11-24 00:00: 00 Yes [id number] 1 tablet EVERY 6 HOURS 1 tablet EVERY 6 HOURS (route: oral) Med Classific ation: Gastroint estinal Therapy Agents trazodone 50 mg tablet 11-24 00:00: 00 Yes [id number] 1 tablet BEDTIME 1 tablet BEDTIME (route: oral) Med Classific ation: Central Nervous System Agents Vital Signs Vital Name Observation Time Observation Value Commen ts Temperature 2022-03-10 09:23:00.000 97.5 [degF] Temperature 2022-03-09 08:37:00.000 97.9 [degF] Temperature 2022-03-08 10:02:00.000 97.9 [degF] Temperature 2022-03-07 09:16:00.000 97.9 [degF] Temperature 2022-03-06 09:52:00.000 98.9 [degF] Temperature 2022-03-03 09:41:00.000 97.8 [degF] Temperature 2022-03-02 10:19:00.000 97.9 [degF] Temperature 2022-03-01 10:50:00.000 97.9 [degF] Temperature 2022-02-22 09:27:00.000 99 [degF] Temperature 2022-02-21 09:31:00.000 98 [degF] Temperature 2022-02-20 08:28:00.000 98.9 [degF] Temperature 2022-02-17 10:16:00.000 98 [degF] Temperature 2022-02-16 08:08:00.000 97.8 [degF] Temperature 2022-02-15 09:15:00.000 99 [degF] Temperature 2022-02-14 09:53:00.000 97.6 [degF] Temperature 2022-02-10 09:54:00.000 98 [degF] Temperature 2022-02-09 09:48:00.000 98.5 [degF] Temperature 2022-02-07 09:16:00.000 98.1 [degF] Temperature 2022-02-06 09:39:00.000 98 [degF] Temperature 2022-02-03 09:35:00.000 98 [degF] Temperature 2022-02-02 09:04:00.000 97.9 [degF] Temperature 2022-02-01 09:48:00.000 98.8 [degF] Temperature 2022-01-31 09:28:00.000 98.8 [degF] Temperature 2022-01-30 10:12:00.000 97.9 [degF] Temperature 2022-01-27 08:46:00.000 98 [degF] Temperature 2022-01-26 10:02:00.000 97.8 [degF] Temperature 2022-01-25 09:41:00.000 97.9 [degF] Temperature 2022-01-24 09:02:00.000 97.9 [degF] Temperature 2022-01-23 09:03:00.000 97.9 [degF] Pulse 2022-02-06 09:39:00.000 84 /min Respirations 2022-02-06 09:39:00.000 18 /min Systolic Blood Pressure 2022-02-06 09:39:00.000 142 mm [Hg] Diastolic Blood Pressure 2022-02-06 09:39:00.000 87 mm [Hg] Plan of Treatment Planned Activity Planned Date Details Comments Future Scheduled Test SKILLED NU RSE TO EVALUATE PATIENT, IDENTIFY PRIMARY AND CO-MORBID CONDITIONS CODED PER CODING GUIDELINES, AND DEVELOP PATIENT SPECIFIC PLAN OF CARE THAT INCLUDES PATIENT GOAL FOR HOME HEALTH. CLINICAL SUMMARY (SOC/KELVIN/RECERT, 10 DAY, 60 DAY) THE PATIENT IS RECEIVING HOMECARE DUE TO DIAGNOSES OF MAJOR DEPRESSION RECENT HOSPITALIZATION/INPATIENT ADMISSION RELATED TO: NEW OR CHANGED MEDICATIONS: PATIENT LIVING SITUATION/CAREGIVER STATUS: RECENT FALLS: NO SUMMARIZE SKILLED NEED: DAILY MEDICATION MANAGEMENT MEDICATIONS TO BE PREPOURED BY NURSE ADDITIONAL DISCIPLINES NEEDED OR DECLINED ORDERED SERVICES: [code = SKILLED NURSE TO EVALUATE PATIENT, IDENTIFY PRIMARY AND CO-MORBID CONDITIONS CODED PER CODING GUIDELINES, AND DEVELOP PATIENT SPECIFIC PLAN OF CARE THAT INCLUDES PATIENT GOAL FOR HOME HEALTH. CLINICAL SUMMARY (SOC/KELVIN/RECERT, 10 DAY, 60 DAY) THE PATIENT IS RECEIVING HOMECARE DUE TO DIAGNOSES OF MAJOR DEPRESSION RECENT HOSPITALIZATION/INPATIENT ADMISSION RELATED TO: NEW OR CHANGED MEDICATIONS: PATIENT LIVING SITUATION/CAREGIVER STATUS: RECENT FALLS: NO SUMMARIZE SKILLED NEED: DAILY MEDICATION MANAGEMENT MEDICATIONS TO BE PREPOURED BY NURSE ADDITIONAL DISCIPLINES NEEDED OR DECLINED ORDERED SERVICES: ] Future Scheduled Test SKILLED NU RSE TO ADMINISTER MEDICATIONS AND PRE-POUR MEDICATIONS DAILY PER MEDICATION LIST. [code = SKILLED NURSE TO ADMINISTER MEDICATIONS AND PRE-POUR MEDICATIONS DAILY PER MEDICATION LIST.] Future Scheduled Test SKILLED NU RSE TO PRE-POUR MEDICATION PER MEDICATION LIST PREPOURED DAILY [code = SKILLED NURSE TO PRE-POUR MEDICATION PER MEDICATION LIST PREPOURED DAILY ] Future Scheduled Test SKILLED NU RSE FOR O/A AND SKILLED TEACHING RELATED TO MANAGEMENT OF DEPRESSIVE SYMPTOMS AND/OR DEPRESSION INCLUDING PARTICIPATION IN [facility] SPECIALTY PROGRAM. SN TO REPORT SIGNIFICANT CHANGE IN DEPRESSIVE SYMPTOMS TO CLINICAL PROVIDER FOR EARLY INTERVENTION. [code = SKILLED NURSE FOR O/A AND SKILLED TEACHING RELATED TO MANAGEMENT OF DEPRESSIVE SYMPTOMS AND/OR DEPRESSION INCLUDING PARTICIPATION IN [facility] SPECIALTY PROGRAM. SN TO REPORT SIGNIFICANT CHANGE IN DEPRESSIVE SYMPTOMS TO CLINICAL PROVIDER FOR EARLY INTERVENTION.] Future Scheduled Test SKILLED NU RSE TO O/A OF PATIENTS MENTAL/BEHAVIORAL STATUS, ASSESS VITAL SIGNS EACH VISIT, ALLOW 2 PRNS FOR MEDICATION MANAGEMENT. [code = SKILLED NURSE TO O/A OF PATIENTS MENTAL/BEHAVIORAL STATUS, ASSESS VITAL SIGNS EACH VISIT, ALLOW 2 PRNS FOR MEDICATION MANAGEMENT.] Future Scheduled Test SKILLED NU RSE FOR O/A OF GENERAL HEALTH STATUS OF PAIN, CARDIAC, RESPIRATORY, GASTROINTESTINAL, GENITOURINARY, SKIN, NEUROLOGIC, ENDOCRINE SYSTEMS TO IDENTIFY CHANGES ASSOCIATED WITH EXACERBATION FOR EARLY INTERVENTION OF COMPLICATIONS [code = SKILLED NURSE FOR O/A OF GENERAL HEALTH STATUS OF PAIN, CARDIAC, RESPIRATORY, GASTROINTESTINAL, GENITOURINARY, SKIN, NEUROLOGIC, ENDOCRINE SYSTEMS TO IDENTIFY CHANGES ASSOCIATED WITH EXACERBATION FOR EARLY INTERVENTION OF COMPLICATIONS ] Future Scheduled Test SKILLED NU RSE MAY PICKUP AND TRANSPORT MEDICATIONS [code = SKILLED NURSE MAY PICKUP AND TRANSPORT MEDICATIONS] Goal 2022-01-18 Patient Goal - BE MEDICATION COMPLIANT Goal 2022-03-14 Patient Goal - BE MEDICATION COMPLIANT Goal Provider Goal - A PLAN OF CARE WILL BE ESTABLISHED THAT MEETS PATIENT'S ALF NEEDS AND INCLUDES PATIENT GOAL FOR HOME HEALTH. Goal Provider Goal - PATIENT WILL COMPLY WITH MEDICATION WHEN SKILLED NURSE ADMINISTERS AND PRE-POURS MEDICATION. Goal Provider Goal - PATIENT WILL COMPLY WITH MEDICATION WHEN SKILLED NURSE PRE-POURS MEDICATION. Goal Provider Goal - PATIENT WILL REMAIN SAFE WITHOUT DECOMPENSATION IN DEPRESSIVE CONDITION, WHILE MAINTAINING OPTIMAL LEVEL OF MENTAL HEALTH AND WELL BEING. Goal Provider Goal - ALTERED MENTAL/BEHAVIORAL STATUS WILL BE IDENTIFIED PROMPTLY AND INTERVENTION INITIATED QUICKLY TO MINIMIZE ASSOCIATED RISKS Goal Provider Goal - CHANGE IN GENERAL HEALTH STATUS WILL BE IDENTIFIED AND REPORTED TO PHYSICIAN FOR PROMPT INTERVENTION TO MINIMIZE ASSOCIATED RISKS THROUGHOUT CERTIFICATION PERIOD. Reason for Visit INDEPENDENT IN THE HOME Encounters Start Date/Time End Date/Time Encounter Type Admission Type Attending Clinicians Care Facility Care Department Encounter ID Discharge Date Discharge Status Discharge Condition Discharge Reason Percent Goals Met 2021-11-24 00:00:00 2022-03-14 00:00:00 Outpatient RECERTIFIC DEEPA BEAVERS [facility] [id number] 00:00:00 DISCHARGE TO HOME OR SELF CARE INDEPENDEN T IN THE HOME PER CLIENT REQUEST 85.71
--- OUTSIDE RECORDS SUMMARY | 2024-02-29 08:04 | XMS_ITS | Clinical Summary ---
Author Organization Unknown Care Team Providers Care Molder Inflated Ball Name Role Phone SWETA GUILLEN, RAF RO RN, CLINICAL NAVIGATOR, DEEPA Brownlee Payers Payer Name Policy Type Policy Number Effective Date Expira tion Date [facility] ([facility] [place] [facility] [id number] MEDICAID [facility] [id number] Problems Condition Name Condition Details Condition Category [...] on aerosol inhaler 03-21 00:00: 00 Yes [id number] 2 puff EVERY 4 HOURS 2 puff EVERY 4 HOURS (route: inhalation ) Med Classific ation: Respirato ry Therapy Agents ferrous sulfate 325 mg (65 mg iron) tablet,wally yed release 03-21 00:00: 00 11-24 00:00 :00 No [id number] 1 tablet DAILY 1 tablet DAILY (route: oral) Med Classific ation: Electroly te Balance-N utritiona l Products gabapentin 300 mg capsule 02-27 00:00: 00 11-24 00:00 :00 No [id number] 1 capsule 3 TIMES DAILY 1 capsule 3 TIMES DAILY (route: oral) Med Classific ation: Central Nervous System Agents docusate sodium 100 mg capsule 03-21 00:00: 00 Yes [id number] 1 capsule 2 TIMES DAILY 1 capsule 2 TIMES DAILY (route: oral) Med Classific ation: Gastroint estinal Therapy Agents Abilify 10 mg tablet 03-27 00:00: 00 Yes [id number] 2 tablet DAILY 2 tablet DAILY (route: oral) Med Classific ation: Central Nervous System Agents Ambien 5 mg tablet 03-27 00:00: 00 Yes [id number] 2 tablet BEDTIME 2 tablet BEDTIME (route: oral) Med Classific ation: Central Nervous System Agents Effexor XR 150 mg capsule,ext ended release 03-27 00:00: 00 Yes [id number] 2 capsule DAILY 2 capsule DAILY (route: oral) Med Classific ation: Central Nervous System Agents Latuda 80 mg tablet 03-27 00:00: 00 11-24 00:00 :00 No [id number] 1 tablet DAILY 1 tablet DAILY (route: oral) Med Classific ation: Central Nervous System Agents lorazepam 0.5 mg tablet 03-27 00:00: 00 Yes [id number] .5 tablet 2 TIMES DAILY .5 tablet 2 TIMES DAILY (route: oral) Med Classific ation: Central Nervous System Agents prazosin 1 mg capsule 03-27 00:00: 00 Yes [id number] 2 capsule BEDTIME 2 capsule BEDTIME (route: oral) Med Classific ation: Cardiovas cular Therapy Agents Suboxone 4 mg-1 mg sublingual film 03-27 00:00: 00 11-24 00:00 :00 No [id number] 1 film 2 TIMES DAILY 1 film 2 TIMES DAILY (route: sublingual ) Med Classific ation: Chemical Dependenc y, Agents to Treat Wellbutrin SR 200 mg tablet, 12 hr sustained-r elease 03-27 00:00: 00 Yes [id number] 1 tablet 2 TIMES DAILY 1 tablet 2 TIMES DAILY (route: oral) Med Classific ation: Central Nervous System Agents ondansetron 4 mg disintegrat ing tablet 11-24 00:00: 00 Yes [id number] 1 tablet EVERY 6 HOURS 1 tablet EVERY 6 HOURS (route: oral) Med Classific ation: Gastroint estinal Therapy Agents trazodone 50 mg tablet 11-24 00:00: 00 Yes [id number] 1 tablet BEDTIME 1 tablet BEDTIME (route: [...] DEPRESSIVE SYMPTOMS AND/OR DEPRESSION INCLUDING PARTICIPATION IN [facility] SPECIALTY PROGRAM. SN TO REPORT SIGNIFICANT CHANGE IN DEPRESSIVE SYMPTOMS TO CLINICAL PROVIDER FOR EARLY INTERVENTION. [code = SKILLED NURSE FOR O/A AND SKILLED TEACHING RELATED TO MANAGEMENT OF DEPRESSIVE SYMPTOMS AND/OR DEPRESSION INCLUDING PARTICIPATION IN [facility] SPECIALTY PROGRAM. SN TO REPORT SIGNIFICANT CHANGE [...] CARE WILL BE ESTABLISHED THAT MEETS PATIENT'S LONG TERM NEEDS AND INCLUDES PATIENT GOAL FOR HOME [...] 00:00:00 2022-03-14 00:00:00 Outpatient RECERTIFIC DEEPA BEAVERS [facility] [id number] 00:00:00 DISCHARGE TO HOME OR SELF CARE INDEPENDEN T IN THE HOME PER CLIENT REQUEST 85.71
[2024-02-29] MEDS: methADONE HCl 20 MG/2 ML ORAL.CONC 115 MG PO (08:28)
[2024-02-29] MEDS: cefuroxime axetiL 250 MG TABLET PO ×2 (08:30→20:17)
[2024-02-29 10:47] LABS: UPreg QC Valid YES
[2024-02-29 10:48] LABS: Urine Pregnancy NEGATIVE (NEGATIVE)
--- NOTE | 2024-02-29 11:52 | PC.NURSE ---
Patient refusing EKG
--- NOTE | 2024-02-29 12:17 | PC.NURSE ---
pt heard yelling for this RN through bedroom door. when checking on patient, pt states so you people just dont fucking feed patients around here ashley . This RN inquired if patient wanted something for food/drink. Pt states yeah I fucking want a pudding, christopher ty and real fucking food . This RN explained that we would be receiving lunch soon but at this time we have pudding, crackers, pre-made sandwhiches and such. Pt then called this RN a fucking bitch . Pt was provided with two cheese sticks, three puddings, apple juice, gingerale, and two sandwiches. Pt also reminded if she needs anything she is more than welcome to come to the nurses station and inquire. Pt became defensive, yelling at this RN. Pt requesting tylenol at this time
[2024-02-29] MEDS: Acetaminophen 325 MG TABLET 975 MG PO (12:25)
[2024-02-29 12:28] VITALS: BP 113/87; PULSE 91; RESP 18; TEMP 38.4; O2SAT 97
--- NOTE | 2024-02-29 12:28 | PC.NURSE ---
pt medicated for fever with 975mg Tylenol
[2024-02-29 15:37] VITALS: RESP 16
--- NOTE | 2024-02-29 21:02 | PHA.MEDREC ---
Pharmacy Consult ? Medication Reconciliation Pharmacy has reviewed the medication reconciliation completed by nursing.
[2024-02-29 23:15] VITALS: BP 134/81; PULSE 74; TEMP 36.5; O2SAT 97
[2024-03-01 00:11] VITALS: BMI 25.1
--- NOTE | 2024-03-01 01:44 | PC.ADMIT ---
Pt is a 38 yo female admitted to the unit after referral from CARE team via the POD. Pt arrived on unit at 2310 on 02/29/24. Pt signed a CV. Pt medical issues are asthma, UTI and Influenza A. Pt denied etoh use but reports IV heroin and crack via inhalation. Utox + for opiates, methadone, fentanyl, benzo's and cocaine. Pt reports they are homeless. Per crisis report, precipitant to admission was medication non-compliance (with exception of methadone) for one month, not following-up with OP providers and currently being homeless. Pt reports increasing depression with thoughts of SI caused her to call EMS for transport to ED. Pt presents as disheveled and wearing hospital johnnies. Pt was feeling lousy and refused to participate in admission process. Pt was instructed to use a mask d/t influenza dx. Provider power generation turbine room operator notified of admission and orders obtained. Placed on 5 minute safety checks in anteroom. Pt reports feeling safe here.
[2024-03-01] MEDS: cefuroxime axetiL 250 MG TABLET PO ×2 (08:25→20:38)
[2024-03-01] MEDS: methADONE HCl 20 MG/2 ML ORAL.CONC 115 MG PO (08:25)
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
[2024-03-01] MEDS: Throat Lozenge, Medicated LOZENGE 1 LOZENGE MUCOUS MEM (08:53)
[2024-03-01] MEDS: guaiFENesin DM 100/10/5 ML 5 ML SYRUP PO ×2 (08:53→20:40)
[2024-03-01] MEDS: Acetaminophen 325 MG TABLET 650 MG PO ×2 (08:53→20:38)
[2024-03-01 20:30] VITALS: BP 109/57; PULSE 54; RESP 16; TEMP 36.3; O2SAT 99
[2024-03-01] MEDS: Gabapentin 100 MG CAPSULE 200 MG PO (20:38)
[2024-03-01] MEDS: traZODone HCL 50 MG TABLET PO (20:54)
[2024-03-02] MEDS: methADONE HCl 20 MG/2 ML ORAL.CONC 115 MG PO (08:07)
[2024-03-02] MEDS: cefuroxime axetiL 250 MG TABLET PO ×2 (08:11→21:21)
[2024-03-02 19:51] VITALS: BP 95/55; PULSE 52; RESP 16; TEMP 36.4; O2SAT 93
[2024-03-02] MEDS: Mirtazapine 7.5 MG TABLET PO (21:21)
[2024-03-02] MEDS: Gabapentin 100 MG CAPSULE 200 MG PO (21:21)
[2024-03-02 21:22] VITALS: BP 101/61; PULSE 57; RESP 18; TEMP 36.5; O2SAT 97
[2024-03-02] MEDS: Acetaminophen 325 MG TABLET 650 MG PO (21:22)
[2024-03-02] MEDS: traZODone HCL 50 MG TABLET PO (21:22)
[2024-03-03] MEDS: methADONE HCl 20 MG/2 ML ORAL.CONC 115 MG PO (08:22)
[2024-03-03] MEDS: cefuroxime axetiL 250 MG TABLET PO ×2 (08:22→21:55)
[2024-03-03] MEDS: Acetaminophen 325 MG TABLET 650 MG PO (09:27)
[2024-03-03] MEDS: ARIPiprazole 5 MG TABLET PO (15:50)
--- NOTE | 2024-03-03 15:54 | HO.PSYCHPN ---
Subjective Subjective Date of Service: 03/03/24 Reason For Visit: SI Interim History: states she is refusing latuda because if she takes it on an empty stomach she feels nauseated. agreeable to take abilify. states she is diagnosed with schizophrenia and is experiencing psychotic Sx. per staff, on Q5 min checks. flu. ante-room. refusing latuda. refusing labs. Mental Status Exam Mental Status Exam Narrative: A&O. Pt in hospital [facility], laying down in bed, thin body habitus. poor eye contact, fairly attentive. No Tics or Tremors. No abnormal involuntary movements, no PMA/PMR. Calm, guarded. Non-pressured speech, non-spontaneous with regular rate and rhythm, normal volume and prosody. No prolonged speech latency or dysarthria. Mood is ?depressed,? affect is constricted. no SI/HI/AVH expressed. Thoughts are coherent. No known cognitive or memory impairment. Insight/ Judgment limited but adequate. Diagnostics Vital Signs (24Hr): Vital Signs - 24 hr 03/02/24 19:51 03/02/24 21:22 Temperature 97.5 F 97.7 F Pulse Rate 52 57 Respiratory Rate 16 18 Blood Pressure 95/55 L 101/61 Pulse Oximetry 93 97 Oxygen Delivery Method Room Air Room Air BMI result Body Mass Index 25.1 Labs 02/29/24 05:35 02/29/24 05:35 Medications Medications Current Medications Acetaminophen (Acetaminophen 325 Mg Tablet) 650 mg PO Q6H PRN PRN Reason: Headache/Pain Mild Scale (1-3) Last Admin: 03/03/24 09:27 Dose: 650 mg Al Hydroxide/Mg Hydroxide (Magnesium Hydrox/Alum Hydrox 30 Ml Oral.Susp) 30 ml PO Q6H PRN PRN Reason: Heartburn/Nausea Aripiprazole (Aripiprazole 5 Mg Tablet) 5 mg PO DAILY JOAQUIN Last Admin: 03/03/24 15:50 Dose: 5 mg Benzocaine (Throat Lozenge, Medicated Lozenge) 1 lozenge MUCOUS MEM Q2H PRN PRN Reason: Sore Throat Last Admin: 03/01/24 08:53 Dose: 1 lozenge Benzonatate (Benzonatate 100 Mg Capsule) 200 mg PO TID PRN PRN Reason: Cough Cefuroxime Axetil (Cefuroxime Axetil 250 Mg Tablet) 250 mg PO BID [facility] Stop: 03/07/24 08:59 Last Admin: 03/03/24 08:22 Dose: 250 mg Gabapentin (Gabapentin 100 Mg Capsule) 200 mg PO BEDTIME [facility] Last Admin: 03/02/24 21:21 Dose: 200 mg Guaifenesin/Dextromethorphan (Guaifenesin Dm 100/10/5 Ml 5 Ml Syrup) 5 ml PO Q4H PRN PRN Reason: Cough Last Admin: 03/01/24 20:40 Dose: 5 ml Hydroxyzine HCl (Hydroxyzine Hcl 25 Mg Tablet) 25 mg PO Q6H PRN PRN Reason: Anxiety Lurasidone HCl (Lurasidone Hcl 20 Mg Tablet) 20 mg PO DAILY@1800 [facility] Last Admin: 03/02/24 19:17 Dose: Not Given Magnesium Hydroxide (Milk Of Magnesia 30 Ml Oral.Susp) 30 ml PO DAILY PRN PRN Reason: Constipation Methadone HCl (Methadone Hcl 20 Mg/2 Ml Oral.Conc) 115 mg PO DAILY [facility] Last Admin: 03/03/24 08:22 Dose: 115 mg Mirtazapine (Mirtazapine 7.5 Mg Tablet) 7.5 mg PO BEDTIME MRX1 [facility] Last Admin: 03/02/24 23:41 Dose: Not Given Nicotine (Nicotine 21 Mg Patch.Td24) 21 mg TRANSDERMA DAILY [facility] Last Admin: 03/03/24 09:08 Dose: Not Given Nicotine Polacrilex (Nicotine Polacrilex 2 Mg Gum) 4 mg BUCCAL Q2H PRN PRN Reason: Nicotine Cravings Trazodone HCl (Trazodone Hcl 50 Mg Tablet) 50 mg PO BEDTIME MRX1 PRN PRN Reason: Insomnia Last Admin: 03/02/24 21:22 Dose: 50 mg Allergies Allergies Allergy/AdvReac Type Severity Reaction Status Date / Time mayonnaise [MAYONNAISE] Allergy Unknown RASH Verified 02/29/24 05:15 seafood Allergy Unknown Rash Verified 02/29/24 05:15 Assessment & Plan Assessment & Plan (1) Influenza A: Status: Acute Code(s): J10.1 - Influenza due to other identified influenza virus with other respiratory manifestations (2) Opioid use disorder: Status: Acute Code(s): F11.90 - Opioid use, unspecified, uncomplicated (3) Post traumatic stress disorder (PTSD): Status: Acute Code(s): F43.10 - Post-traumatic stress disorder, unspecified (4) Bipolar II disorder: Status: Acute Code(s): F31.81 - Bipolar II disorder (5) Cocaine abuse: Status: Acute Code(s): F14.10 - Cocaine abuse, uncomplicated Plan 03/01/24-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 agreeable to take abilify instead of latuda, as latuda makes her nauseated on an empty stomach. appears unwell, poor eye contact, lying on bed in isolation room due to flu. Reason for continued inpatient stay Substantial Risk for: inability to function Time Spent With Patient Time: Total time managing care of this patient today __25__ minutes.
[2024-03-03 20:00] VITALS: BP 80/45; PULSE 54; RESP 16; TEMP 36.4; O2SAT 97
[2024-03-03] MEDS: Mirtazapine 7.5 MG TABLET PO ×2 (21:55→22:10)
[2024-03-03] MEDS: traZODone HCL 50 MG TABLET PO (21:55)
[2024-03-03] MEDS: Gabapentin 100 MG CAPSULE 200 MG PO (21:55)
[2024-03-04 07:35] VITALS: BP 109/69; PULSE 52; RESP 14; TEMP 36.6; O2SAT 94
[2024-03-04] MEDS: methADONE HCl 20 MG/2 ML ORAL.CONC 115 MG PO (08:15)
[2024-03-04] MEDS: ARIPiprazole 5 MG TABLET PO (08:33)
[2024-03-04] MEDS: cefuroxime axetiL 250 MG TABLET PO ×2 (08:33→20:46)
--- NOTE | 2024-03-04 14:54 | HO.PSYCHPN ---
Subjective Subjective Date of Service: 03/04/24 Reason For Visit: SI Interim History: asking for gabapentin increase for anxiety. also more for sleep. agreeable to DC latuda and increase abilify to 10 mg daily. feeling better than yesterday, more up and about. isolation precautions ended. per staff, irritable. drowsy. dep/anx. slept 7 hours. Mental Status Exam Mental Status Exam Narrative: A&O. Pt in [facility], up and about the unit. fair eye contact, attentive. No Tics or Tremors. No abnormal involuntary movements, no PMA/PMR. Calm, guarded. Non-pressured speech, non-spontaneous with regular rate and rhythm, normal volume and prosody. No prolonged speech latency or dysarthria. Mood is ?depressed,? affect is constricted. no SI/HI/AVH expressed. Thoughts are coherent. No known cognitive or memory impairment. Insight/ Judgment limited but adequate. Diagnostics Vital Signs (24Hr): Vital Signs - 24 hr 03/03/24 20:00 03/04/24 07:35 Temperature 97.6 F 97.8 F Pulse Rate 54 52 Respiratory Rate 16 14 Blood Pressure 80/45 L 109/69 Pulse Oximetry 97 94 Oxygen Delivery Method Room Air Room Air BMI result Body Mass Index 25.1 Labs 02/29/24 05:35 02/29/24 05:35 Medications Medications Current Medications Acetaminophen (Acetaminophen 325 Mg Tablet) 650 mg PO Q6H PRN PRN Reason: Headache/Pain Mild Scale (1-3) Last Admin: 03/03/24 09:27 Dose: 650 mg Al Hydroxide/Mg Hydroxide (Magnesium Hydrox/Alum Hydrox 30 Ml Oral.Susp) 30 ml PO Q6H PRN PRN Reason: Heartburn/Nausea Aripiprazole (Aripiprazole 10 Mg Tablet) 10 mg PO DAILY JOAQUIN Benzocaine (Throat Lozenge, Medicated Lozenge) 1 lozenge MUCOUS MEM Q2H PRN PRN Reason: Sore Throat Last Admin: 03/01/24 08:53 Dose: 1 lozenge Benzonatate (Benzonatate 100 Mg Capsule) 200 mg PO TID PRN PRN Reason: Cough Cefuroxime Axetil (Cefuroxime Axetil 250 Mg Tablet) 250 mg PO BID JOAQUIN Stop: 03/07/24 08:59 Last Admin: 03/04/24 08:33 Dose: 250 mg Gabapentin (Gabapentin 300 Mg Capsule) 300 mg PO TID JOAQUIN Guaifenesin/Dextromethorphan (Guaifenesin Dm 100/10/5 Ml 5 Ml Syrup) 5 ml PO Q4H PRN PRN Reason: Cough Last Admin: 03/01/24 20:40 Dose: 5 ml Hydroxyzine HCl (Hydroxyzine Hcl 25 Mg Tablet) 25 mg PO Q6H PRN PRN Reason: Anxiety Magnesium Hydroxide (Milk Of Magnesia 30 Ml Oral.Susp) 30 ml PO DAILY PRN PRN Reason: Constipation Methadone HCl (Methadone Hcl 20 Mg/2 Ml Oral.Conc) 115 mg PO DAILY JOAQUIN Last Admin: 03/04/24 08:15 Dose: 115 mg Mirtazapine (Mirtazapine 15 Mg Tablet) 15 mg PO BEDTIME MRX1 JOAQUIN Nicotine (Nicotine 21 Mg Patch.Td24) 21 mg TRANSDERMA DAILY [facility] Last Admin: 03/04/24 08:36 Dose: Not Given Nicotine Polacrilex (Nicotine Polacrilex 2 Mg Gum) 4 mg BUCCAL Q2H PRN PRN Reason: Nicotine Cravings Trazodone HCl (Trazodone Hcl 50 Mg Tablet) 50 mg PO BEDTIME MRX1 PRN PRN Reason: Insomnia Last Admin: 03/03/24 21:55 Dose: 50 mg Allergies Allergies Allergy/AdvReac Type Severity Reaction Status Date / Time mayonnaise [MAYONNAISE] Allergy Unknown RASH Verified 02/29/24 05:15 seafood Allergy Unknown Rash Verified 02/29/24 05:15 Assessment & Plan Assessment & Plan (1) Influenza A: Status: Acute Code(s): J10.1 - Influenza due to other identified influenza virus with other respiratory manifestations (2) Opioid use disorder: Status: Acute Code(s): F11.90 - Opioid use, unspecified, uncomplicated (3) Post traumatic stress disorder (PTSD): Status: Acute Code(s): F43.10 - Post-traumatic stress disorder, unspecified (4) Bipolar II disorder: Status: Acute Code(s): F31.81 - Bipolar II disorder (5) Cocaine abuse: Status: Acute Code(s): F14.10 - Cocaine abuse, uncomplicated Plan 03/01/24-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 agreeable to take abilify instead of latuda, as latuda makes her nauseated on an empty stomach. appears unwell, poor eye contact, lying on bed in isolation room due to flu. 03/04: contact precautions over, pt up and about the unit more. increase gabapentin to 300 TID for anxiety, remeron to 30 QHS for insomnia. DC latuda, increase abilify dosing to 10 mg daily. Reason for continued inpatient stay Substantial Risk for: inability to function and rapid decompensation Time Spent With Patient Time: Total time managing care of this patient today __25__ minutes.
[2024-03-04] MEDS: Gabapentin 300 MG CAPSULE PO ×2 (15:07→20:46)
[2024-03-04 20:00] VITALS: BP 107/65; PULSE 66; RESP 16; TEMP 36.3; O2SAT 97
[2024-03-04] MEDS: Mirtazapine 15 MG TABLET PO (20:46)
[2024-03-04] MEDS: traZODone HCL 50 MG TABLET PO (20:51)
[2024-03-05] MEDS: methADONE HCl 20 MG/2 ML ORAL.CONC 115 MG PO (08:04)
[2024-03-05] MEDS: cefuroxime axetiL 250 MG TABLET PO ×2 (09:52→21:39)
[2024-03-05] MEDS: ARIPiprazole 10 MG TABLET PO (09:52)
[2024-03-05] MEDS: Gabapentin 300 MG CAPSULE PO ×3 (09:53→21:39)
--- NOTE | 2024-03-05 15:05 | P.PNPSI_ITS ---
Subjective Subjective Date of Service: 03/05/24 Reason For Visit: SI Interim History: calm, cooperative. in bed. appears fatigued, tired. says she needs more sleep medication. agrees to increase remeron to 30 mg at HS with repeat of 15 mg PRN. informed of need to accept [facility] bed if unable to get back into [facility]. per staff, flat, withdrawn. taking meds. no SI/AVH. slept 8 hours. referred to [facility]. wants to return to [facility]. Mental Status Exam Mental Status Exam Narrative: A&O. Pt in [facility], variably up and about the unit and in bed. fair eye contact, attentive. No Tics or Tremors. No abnormal involuntary movements, no PMA/PMR. Calm, guarded. Non-pressured speech, non-spontaneous with regular rate and rhythm, normal volume and prosody. No prolonged speech latency or dysarthria. Mood is not assessed, affect is constricted. no SI/HI/AVH expressed. Thoughts are coherent. No known cognitive or memory impairment. Insight/ Judgment limited but adequate. Diagnostics Vital Signs (24Hr): Vital Signs - 24 hr 03/04/24 20:00 Temperature 97.3 F Pulse Rate 66 Respiratory Rate 16 Blood Pressure 107/65 Pulse Oximetry 97 Oxygen Delivery Method Room Air BMI result Body Mass Index 25.1 Labs 02/29/24 05:35 02/29/24 05:35 Medications Medications Current Medications Acetaminophen (Acetaminophen 325 Mg Tablet) 650 mg PO Q6H PRN PRN Reason: Headache/Pain Mild Scale (1-3) Last Admin: 03/03/24 09:27 Dose: 650 mg Al Hydroxide/Mg Hydroxide (Magnesium Hydrox/Alum Hydrox 30 Ml Oral.Susp) 30 ml PO Q6H PRN PRN Reason: Heartburn/Nausea Aripiprazole (Aripiprazole 10 Mg Tablet) 10 mg PO DAILY JOAQUIN Last Admin: 03/05/24 09:52 Dose: 10 mg Benzocaine (Throat Lozenge, Medicated Lozenge) 1 lozenge MUCOUS MEM Q2H PRN PRN Reason: Sore Throat Last Admin: 03/01/24 08:53 Dose: 1 lozenge Benzonatate (Benzonatate 100 Mg Capsule) 200 mg PO TID PRN PRN Reason: Cough Cefuroxime Axetil (Cefuroxime Axetil 250 Mg Tablet) 250 mg PO BID [facility] Stop: 03/07/24 08:59 Last Admin: 03/05/24 09:52 Dose: 250 mg Gabapentin (Gabapentin 300 Mg Capsule) 300 mg PO TID [facility] Last Admin: 03/05/24 14:40 Dose: 300 mg Guaifenesin/Dextromethorphan (Guaifenesin Dm 100/10/5 Ml 5 Ml Syrup) 5 ml PO Q4H PRN PRN Reason: Cough Last Admin: 03/01/24 20:40 Dose: 5 ml Hydroxyzine HCl (Hydroxyzine Hcl 25 Mg Tablet) 25 mg PO Q6H PRN PRN Reason: Anxiety Magnesium Hydroxide (Milk Of Magnesia 30 Ml Oral.Susp) 30 ml PO DAILY PRN PRN Reason: Constipation Methadone HCl (Methadone Hcl 20 Mg/2 Ml Oral.Conc) 115 mg PO DAILY [facility] Last Admin: 03/05/24 08:04 Dose: 115 mg Mirtazapine (Mirtazapine 30 Mg Tablet) 30 mg PO BEDTIME JOAQUIN Mirtazapine (Mirtazapine 15 Mg Tablet) 15 mg PO BEDTIME PRN PRN Reason: insomnia Nicotine (Nicotine 21 Mg Patch.Td24) 21 mg TRANSDERMA DAILY [facility] Last Admin: 03/05/24 10:35 Dose: Not Given Nicotine Polacrilex (Nicotine Polacrilex 2 Mg Gum) 4 mg BUCCAL Q2H PRN PRN Reason: Nicotine Cravings Trazodone HCl (Trazodone Hcl 50 Mg Tablet) 50 mg PO BEDTIME MRX1 PRN PRN Reason: Insomnia Last Admin: 03/04/24 20:51 Dose: 50 mg Allergies Allergies Allergy/AdvReac Type Severity Reaction Status Date / Time mayonnaise [MAYONNAISE] Allergy Unknown RASH Verified 02/29/24 05:15 seafood Allergy Unknown Rash Verified 02/29/24 05:15 Assessment & Plan Assessment & Plan (1) Influenza A: Status: Acute Code(s): J10.1 - Influenza due to other identified influenza virus with other respiratory manifestations (2) Opioid use disorder: Status: Acute Code(s): F11.90 - Opioid use, unspecified, uncomplicated (3) Post traumatic stress disorder (PTSD): Status: Acute Code(s): F43.10 - Post-traumatic stress disorder, unspecified (4) Bipolar II disorder: Status: Acute Code(s): F31.81 - Bipolar II disorder (5) Cocaine abuse: Status: Acute Code(s): F14.10 - Cocaine abuse, uncomplicated Plan 03/01/24-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 agreeable to take abilify instead of latuda, as latuda makes her nauseated on an empty stomach. appears unwell, poor eye contact, lying on bed in isolation room due to flu. 03/04: contact precautions over, pt up and about the unit more. increase gabapentin to 300 TID for anxiety, remeron to 30 QHS for insomnia. DC latuda, increase abilify dosing to 10 mg daily. 03/05: poor sleep. increase remeron to 30 mg QHS with 15 mg repeat PRN. otherwise continue current mgmt. recommended to F/U with kacie on her own and to accept bed at [facility] should one be offered her and no information is forthcoming from kacie. Reason for continued inpatient stay Substantial Risk for: inability to function and rapid decompensation Time Spent With Patient Time: Total time managing care of this patient today __25__ minutes.
[2024-03-05 20:00] VITALS: BP 93/54; PULSE 66; RESP 18; TEMP 36.3; O2SAT 97
[2024-03-05] MEDS: Mirtazapine 30 MG TABLET PO (21:39)
[2024-03-05] MEDS: traZODone HCL 50 MG TABLET PO (21:42)
[2024-03-06 07:00] VITALS: BMI 26.2
[2024-03-06 08:00] VITALS: BP 119/56; PULSE 72; RESP 16; TEMP 36.9; O2SAT 98
[2024-03-06] MEDS: methADONE HCl 20 MG/2 ML ORAL.CONC 115 MG PO (08:47)
[2024-03-06] MEDS: Gabapentin 300 MG CAPSULE PO (08:48)
[2024-03-06] MEDS: ARIPiprazole 10 MG TABLET PO (08:48)
[2024-03-06] MEDS: cefuroxime axetiL 250 MG TABLET PO ×2 (08:48→21:13)
--- NOTE | 2024-03-06 14:30 | HO.PSYCHPN ---
Subjective Subjective Date of Service: 03/06/24 Reason For Visit: SI Interim History: lying in bed, calm, cooperative. asking for sleep meds to be increased a hair, and also gabapentin for anxiety. denies any safety concerns, psychotic Sx, or poor mood. per staff, awaiting word from [facility]. slept well. Mental Status Exam Mental Status Exam Narrative: A&O. Pt in [facility], in bed. fair eye contact, attentive. No Tics or Tremors. No abnormal involuntary movements, no PMA/PMR. Calm. Non-pressured speech, non-spontaneous with regular rate and rhythm, normal volume and prosody. No prolonged speech latency or dysarthria. Mood is good, affect is constricted. no SI/HI/AVH. Thoughts are coherent. No known cognitive or memory impairment. Insight/Judgment fair. Diagnostics Vital Signs (24Hr): Vital Signs - 24 hr 03/05/24 20:00 03/06/24 08:00 Temperature 97.3 F 98.5 F Pulse Rate 66 72 Respiratory Rate 18 16 Blood Pressure 93/54 L 119/56 L Pulse Oximetry 97 98 Oxygen Delivery Method Room Air Room Air BMI result Body Mass Index 25.1 Labs 02/29/24 05:35 02/29/24 05:35 Medications Medications Current Medications Acetaminophen (Acetaminophen 325 Mg Tablet) 650 mg PO Q6H PRN PRN Reason: Headache/Pain Mild Scale (1-3) Last Admin: 03/03/24 09:27 Dose: 650 mg Al Hydroxide/Mg Hydroxide (Magnesium Hydrox/Alum Hydrox 30 Ml Oral.Susp) 30 ml PO Q6H PRN PRN Reason: Heartburn/Nausea Aripiprazole (Aripiprazole 10 Mg Tablet) 10 mg PO DAILY [facility] Last Admin: 03/06/24 08:48 Dose: 10 mg Benzocaine (Throat Lozenge, Medicated Lozenge) 1 lozenge MUCOUS MEM Q2H PRN PRN Reason: Sore Throat Last Admin: 03/01/24 08:53 Dose: 1 lozenge Benzonatate (Benzonatate 100 Mg Capsule) 200 mg PO TID PRN PRN Reason: Cough Cefuroxime Axetil (Cefuroxime Axetil 250 Mg Tablet) 250 mg PO BID [facility] Stop: 03/07/24 08:59 Last Admin: 03/06/24 08:48 Dose: 250 mg Gabapentin (Gabapentin 400 Mg Capsule) 400 mg PO TID [facility] Guaifenesin/Dextromethorphan (Guaifenesin Dm 100/10/5 Ml 5 Ml Syrup) 5 ml PO Q4H PRN PRN Reason: Cough Last Admin: 03/01/24 20:40 Dose: 5 ml Hydroxyzine HCl (Hydroxyzine Hcl 25 Mg Tablet) 25 mg PO Q6H PRN PRN Reason: Anxiety Magnesium Hydroxide (Milk Of Magnesia 30 Ml Oral.Susp) 30 ml PO DAILY PRN PRN Reason: Constipation Methadone HCl (Methadone Hcl 20 Mg/2 Ml Oral.Conc) 115 mg PO DAILY [facility] Last Admin: 03/06/24 08:47 Dose: 115 mg Mirtazapine (Mirtazapine 15 Mg Tablet) 37.5 mg PO BEDTIME [facility] Mirtazapine (Mirtazapine 7.5 Mg Tablet) 7.5 mg PO BEDTIME PRN PRN Reason: insomnia Nicotine (Nicotine 21 Mg Patch.Td24) 21 mg TRANSDERMA DAILY [facility] Last Admin: 03/06/24 09:10 Dose: Not Given Nicotine Polacrilex (Nicotine Polacrilex 2 Mg Gum) 4 mg BUCCAL Q2H PRN PRN Reason: Nicotine Cravings Allergies Allergies Allergy/AdvReac Type Severity Reaction Status Date / Time mayonnaise [MAYONNAISE] Allergy Unknown RASH Verified 02/29/24 05:15 seafood Allergy Unknown Rash Verified 02/29/24 05:15 Assessment & Plan Assessment & Plan (1) Influenza A: Status: Acute Code(s): J10.1 - Influenza due to other identified influenza virus with other respiratory manifestations (2) Opioid use disorder: Status: Acute Code(s): F11.90 - Opioid use, unspecified, uncomplicated (3) Post traumatic stress disorder (PTSD): Status: Acute Code(s): F43.10 - Post-traumatic stress disorder, unspecified (4) Bipolar II disorder: Status: Acute Code(s): F31.81 - Bipolar II disorder (5) Cocaine abuse: Status: Acute Code(s): F14.10 - Cocaine abuse, uncomplicated Plan 03/01/24-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 agreeable to take abilify instead of latuda, as latuda makes her nauseated on an empty stomach. appears unwell, poor eye contact, lying on bed in isolation room due to flu. 03/04: contact precautions over, pt up and about the unit more. increase gabapentin to 300 TID for anxiety, remeron to 30 QHS for insomnia. DC latuda, increase abilify dosing to 10 mg daily. 03/05: poor sleep. increase remeron to 30 mg QHS with 15 mg repeat PRN. otherwise continue current mgmt. recommended to F/U with [facility] on her own and to accept bed at [facility] should one be offered her and no information is forthcoming from [facility]. 03/06: aware she must do rehab prior to returning to [facility], after speaking with them. interested in [facility]. no safety concerns, mood or psychotic Sx complaints. continue current mgmt, update [facility] on clinical presentation. increase HS remeron to 37.5 mg and gabapentin to 400 TID. Reason for continued inpatient stay Substantial Risk for: inability to function and rapid decompensation Time Spent With Patient Time: Total time managing care of this patient today __25__ minutes.
[2024-03-06] MEDS: Gabapentin 400 MG CAPSULE PO ×2 (14:51→21:12)
[2024-03-06 20:00] VITALS: RESP 16
[2024-03-06] MEDS: hydrOXYzine HCL 25 MG TABLET PO (21:11)
[2024-03-06] MEDS: Mirtazapine 15 MG TABLET 37.5 MG PO (21:12)
[2024-03-07] MEDS: methADONE HCl 20 MG/2 ML ORAL.CONC 115 MG PO (08:55)
[2024-03-07] MEDS: Gabapentin 400 MG CAPSULE PO ×3 (08:56→20:39)
[2024-03-07] MEDS: ARIPiprazole 10 MG TABLET PO (08:56)
[2024-03-07 09:04] VITALS: BP 93/57; PULSE 64; RESP 16; TEMP 36.3; O2SAT 97
--- NOTE | 2024-03-07 15:00 | HO.PSYCHPN ---
Subjective Subjective Date of Service: 03/07/24 Reason For Visit: SI Interim History: c/o poor sleep (staff reporting she slept 8 hours). asking to add trazodone back, agreeable to increase abilify to 15 mg daily. awaiting word from [facility]. per staff, flat, withdrawn, guarded. +dep/anx. slept 8 hours. Mental Status Exam Mental Status Exam Narrative: A&O. Pt in own clothes, up and about the unit. fair eye contact, attentive. No Tics or Tremors. No abnormal involuntary movements, no PMA/PMR. Calm. Non-pressured speech, non-spontaneous with regular rate and rhythm, normal volume and prosody. No prolonged speech latency or dysarthria. Mood is good, affect is constricted. no SI/HI/AVH expressed. Thoughts are coherent. No known cognitive or memory impairment. Insight/Judgment fair. Diagnostics Vital Signs (24Hr): Vital Signs - 24 hr 03/06/24 20:00 03/07/24 09:04 Temperature 97.3 F Pulse Rate 64 Respiratory Rate 16 16 Blood Pressure 93/57 L Pulse Oximetry 97 Oxygen Delivery Method Room Air BMI result Body Mass Index 26.2 Labs 02/29/24 05:35 02/29/24 05:35 Medications Medications Current Medications Acetaminophen (Acetaminophen 325 Mg Tablet) 650 mg PO Q6H PRN PRN Reason: Headache/Pain Mild Scale (1-3) Last Admin: 03/03/24 09:27 Dose: 650 mg Al Hydroxide/Mg Hydroxide (Magnesium Hydrox/Alum Hydrox 30 Ml Oral.Susp) 30 ml PO Q6H PRN PRN Reason: Heartburn/Nausea Aripiprazole (Aripiprazole 15 Mg Tablet) 15 mg PO DAILY [facility] Benzocaine (Throat Lozenge, Medicated Lozenge) 1 lozenge MUCOUS MEM Q2H PRN PRN Reason: Sore Throat Last Admin: 03/01/24 08:53 Dose: 1 lozenge Benzonatate (Benzonatate 100 Mg Capsule) 200 mg PO TID PRN PRN Reason: Cough Gabapentin (Gabapentin 400 Mg Capsule) 400 mg PO TID [facility] Last Admin: 03/07/24 14:37 Dose: 400 mg Guaifenesin/Dextromethorphan (Guaifenesin Dm 100/10/5 Ml 5 Ml Syrup) 5 ml PO Q4H PRN PRN Reason: Cough Last Admin: 03/01/24 20:40 Dose: 5 ml Hydroxyzine HCl (Hydroxyzine Hcl 25 Mg Tablet) 25 mg PO Q6H PRN PRN Reason: Anxiety Last Admin: 03/06/24 21:11 Dose: 25 mg Magnesium Hydroxide (Milk Of Magnesia 30 Ml Oral.Susp) 30 ml PO DAILY PRN PRN Reason: Constipation Methadone HCl (Methadone Hcl 20 Mg/2 Ml Oral.Conc) 115 mg PO DAILY [facility] Last Admin: 03/07/24 08:55 Dose: 115 mg Mirtazapine (Mirtazapine 15 Mg Tablet) 37.5 mg PO BEDTIME [facility] Last Admin: 03/06/24 21:12 Dose: 37.5 mg Mirtazapine (Mirtazapine 7.5 Mg Tablet) 7.5 mg PO BEDTIME PRN PRN Reason: insomnia Nicotine (Nicotine 21 Mg Patch.Td24) 21 mg TRANSDERMA DAILY [facility] Last Admin: 03/07/24 09:04 Dose: Not Given Nicotine Polacrilex (Nicotine Polacrilex 2 Mg Gum) 4 mg BUCCAL Q2H PRN PRN Reason: Nicotine Cravings Trazodone HCl (Trazodone Hcl 50 Mg Tablet) 50 mg PO BEDTIME [facility] Allergies Allergies Allergy/AdvReac Type Severity Reaction Status Date / Time mayonnaise [MAYONNAISE] Allergy Unknown RASH Verified 02/29/24 05:15 seafood Allergy Unknown Rash Verified 02/29/24 05:15 Assessment & Plan Assessment & Plan (1) Influenza A: Status: Acute Code(s): J10.1 - Influenza due to other identified influenza virus with other respiratory manifestations (2) Opioid use disorder: Status: Acute Code(s): F11.90 - Opioid use, unspecified, uncomplicated (3) Post traumatic stress disorder (PTSD): Status: Acute Code(s): F43.10 - Post-traumatic stress disorder, unspecified (4) Bipolar II disorder: Status: Acute Code(s): F31.81 - Bipolar II disorder (5) Cocaine abuse: Status: Acute Code(s): F14.10 - Cocaine abuse, uncomplicated Plan 03/01/24-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 agreeable to take abilify instead of latuda, as latuda makes her nauseated on an empty stomach. appears unwell, poor eye contact, lying on bed in isolation room due to flu. 03/04: contact precautions over, pt up and about the unit more. increase gabapentin to 300 TID for anxiety, remeron to 30 QHS for insomnia. DC latuda, increase abilify dosing to 10 mg daily. 03/05: poor sleep. increase remeron to 30 mg QHS with 15 mg repeat PRN. otherwise continue current mgmt. recommended to F/U with [facility] on her own and to accept bed at [facility] should one be offered her and no information is forthcoming from [facility]. 03/06: aware she must do rehab prior to returning to [facility], after speaking with them. interested in [facility]. no safety concerns, mood or psychotic Sx complaints. continue current mgmt, update [facility] on clinical presentation. increase HS remeron to 37.5 mg and gabapentin to 400 TID. 03/07: poor sleep, asking for trazodone to be added back. MD agrees to reinstate trazodone 50. pt agrees to increase abilify to 15 mg QHS as well. awaiting word from [facility]. Reason for continued inpatient stay Substantial Risk for: inability to function and rapid decompensation Time Spent With Patient Time: Total time managing care of this patient today __25__ minutes.
[2024-03-07 20:00] VITALS: BP 100/55; PULSE 71; RESP 18; TEMP 37.2; O2SAT 95
[2024-03-07] MEDS: Mirtazapine 15 MG TABLET 37.5 MG PO (20:36)
[2024-03-07] MEDS: traZODone HCL 50 MG TABLET PO (20:39)
[2024-03-08 07:38] VITALS: BP 91/54; PULSE 72; RESP 16; TEMP 36.9; O2SAT 95
[2024-03-08] MEDS: methADONE HCl 20 MG/2 ML ORAL.CONC 115 MG PO (08:14)
[2024-03-08] MEDS: Gabapentin 400 MG CAPSULE PO ×3 (08:16→20:08)
[2024-03-08] MEDS: ARIPiprazole 15 MG TABLET PO (08:16)
--- NOTE | 2024-03-08 16:18 | HO.PSYCHPN ---
Subjective Subjective Date of Service: 03/08/24 Reason For Visit: SI Interim History: Pt slept through the night, although reports poor sleep. She reports nightmares used to be on prazosin. Will restart, monitor SBP as it is low. No SI/HI. Denies other concerns. Review of Systems Review of Systems Yes all other systems are reviewed and are negative Mental Status Exam Mental Status Exam Patient Appearance: Disheveled and Unkempt Patient Orientation: Person, Place, Time and Situation Level of Consciousness: Awake and Appropriate Patient Behavior: Guarded and Cooperative (minimally) Mood Description: Apprehensive Affect Description: Flat Patient Cognition Impaired: No Ability to Follow Directions: Fair Speech Pattern: Clear Diagnostics Vital Signs (24Hr): Vital Signs - 24 hr 03/07/24 20:00 03/08/24 07:38 Temperature 99 F 98.5 F Pulse Rate 71 72 Respiratory Rate 18 16 Blood Pressure 100/55 L 91/54 L Pulse Oximetry 95 95 Oxygen Delivery Method Room Air Room Air BMI result Body Mass Index 26.2 Labs 02/29/24 05:35 02/29/24 05:35 Medications Medications Current Medications Acetaminophen (Acetaminophen 325 Mg Tablet) 650 mg PO Q6H PRN PRN Reason: Headache/Pain Mild Scale (1-3) Last Admin: 03/03/24 09:27 Dose: 650 mg Al Hydroxide/Mg Hydroxide (Magnesium Hydrox/Alum Hydrox 30 Ml Oral.Susp) 30 ml PO Q6H PRN PRN Reason: Heartburn/Nausea Aripiprazole (Aripiprazole 15 Mg Tablet) 15 mg PO DAILY [facility] Last Admin: 03/08/24 08:16 Dose: 15 mg Benzocaine (Throat Lozenge, Medicated Lozenge) 1 lozenge MUCOUS MEM Q2H PRN PRN Reason: Sore Throat Last Admin: 03/01/24 08:53 Dose: 1 lozenge Benzonatate (Benzonatate 100 Mg Capsule) 200 mg PO TID PRN PRN Reason: Cough Gabapentin (Gabapentin 400 Mg Capsule) 400 mg PO TID [facility] Last Admin: 03/08/24 15:36 Dose: 400 mg Guaifenesin/Dextromethorphan (Guaifenesin Dm 100/10/5 Ml 5 Ml Syrup) 5 ml PO Q4H PRN PRN Reason: Cough Last Admin: 03/01/24 20:40 Dose: 5 ml Hydroxyzine HCl (Hydroxyzine Hcl 25 Mg Tablet) 25 mg PO Q6H PRN PRN Reason: Anxiety Last Admin: 03/06/24 21:11 Dose: 25 mg Magnesium Hydroxide (Milk Of Magnesia 30 Ml Oral.Susp) 30 ml PO DAILY PRN PRN Reason: Constipation Methadone HCl (Methadone Hcl 20 Mg/2 Ml Oral.Conc) 115 mg PO DAILY [facility] Last Admin: 03/08/24 08:14 Dose: 115 mg Mirtazapine (Mirtazapine 15 Mg Tablet) 37.5 mg PO BEDTIME [facility] Last Admin: 03/07/24 20:36 Dose: 37.5 mg Mirtazapine (Mirtazapine 7.5 Mg Tablet) 7.5 mg PO BEDTIME PRN PRN Reason: insomnia Nicotine (Nicotine 21 Mg Patch.Td24) 21 mg TRANSDERMA DAILY [facility] Last Admin: 03/08/24 08:44 Dose: Not Given Nicotine Polacrilex (Nicotine Polacrilex 2 Mg Gum) 4 mg BUCCAL Q2H PRN PRN Reason: Nicotine Cravings Trazodone HCl (Trazodone Hcl 50 Mg Tablet) 50 mg PO BEDTIME [facility] Last Admin: 03/07/24 20:39 Dose: 50 mg Allergies Allergies Allergy/AdvReac Type Severity Reaction Status Date / Time mayonnaise [MAYONNAISE] Allergy Unknown RASH Verified 02/29/24 05:15 seafood Allergy Unknown Rash Verified 02/29/24 05:15 Assessment & Plan Assessment & Plan (1) Influenza A: Status: Acute Code(s): J10.1 - Influenza due to other identified influenza virus with other respiratory manifestations (2) Opioid use disorder: Status: Acute Code(s): F11.90 - Opioid use, unspecified, uncomplicated (3) Post traumatic stress disorder (PTSD): Status: Acute Code(s): F43.10 - Post-traumatic stress disorder, unspecified (4) Bipolar II disorder: Status: Acute Code(s): F31.81 - Bipolar II disorder (5) Cocaine abuse: Status: Acute Code(s): F14.10 - Cocaine abuse, uncomplicated Plan 03/01/24-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 agreeable to take abilify instead of latuda, as latuda makes her nauseated on an empty stomach. appears unwell, poor eye contact, lying on bed in isolation room due to flu. 03/04: contact precautions over, pt up and about the unit more. increase gabapentin to 300 TID for anxiety, remeron to 30 QHS for insomnia. DC latuda, increase abilify dosing to 10 mg daily. 03/05: poor sleep. increase remeron to 30 mg QHS with 15 mg repeat PRN. otherwise continue current mgmt. recommended to F/U with [facility] on her own and to accept bed at [facility] should one be offered her and no information is forthcoming from [facility]. 03/06: aware she must do rehab prior to returning to [facility], after speaking with them. interested in [facility]. no safety concerns, mood or psychotic Sx complaints. continue current mgmt, update [facility] on clinical presentation. increase HS remeron to 37.5 mg and gabapentin to 400 TID. 03/07: poor sleep, asking for trazodone to be added back. MD agrees to reinstate trazodone 50. pt agrees to increase abilify to 15 mg QHS as well. awaiting word from [facility]. 03/08 prazosin 2mg po qhs. monitor BP. Reason for continued inpatient stay Substantial Risk for: inability to function Time Spent With Patient Time: Total time managing care of this patient today ____ minutes.
[2024-03-08 20:00] VITALS: BP 137/72; PULSE 75; RESP 16; TEMP 36.5; O2SAT 98
[2024-03-08] MEDS: Prazosin HCL 1 MG CAPSULE 2 MG PO (20:08)
[2024-03-08] MEDS: Mirtazapine 15 MG TABLET 37.5 MG PO (20:09)
[2024-03-08] MEDS: traZODone HCL 50 MG TABLET PO (20:10)
[2024-03-09 08:14] VITALS: BP 114/64; PULSE 82; RESP 14; TEMP 36.2; O2SAT 97
[2024-03-09] MEDS: methADONE HCl 20 MG/2 ML ORAL.CONC 115 MG PO (08:16)
[2024-03-09] MEDS: Gabapentin 400 MG CAPSULE PO ×3 (08:17→20:16)
[2024-03-09] MEDS: ARIPiprazole 15 MG TABLET PO (08:17)
--- NOTE | 2024-03-09 11:06 | P.PNPSI_ITS ---
Subjective Subjective Date of Service: 03/09/24 Reason For Visit: SI Interim History: Pt slept through the night, although reports poor sleep. She reports nightmares used to be on prazosin. Will restart, monitor SBP as it is low. No SI/HI. Denies other concerns. Review of Systems Review of Systems Yes all other systems are reviewed and are negative Mental Status Exam Mental Status Exam Narrative: A&O. Pt in own clothes, up and about the unit. fair eye contact, attentive. No Tics or Tremors. No abnormal involuntary movements, no PMA/PMR. Calm. Non- pressured speech, non-spontaneous with regular rate and rhythm, normal volume and prosody. No prolonged speech latency or dysarthria. Mood is good, affect is constricted. no SI/HI/AVH expressed. Thoughts are coherent. No known cognitive or memory impairment. Insight/Judgment fair. Patient Appearance: Well Grooomed Patient Orientation: Person, Place, Time and Situation Level of Consciousness: Awake and Appropriate Patient Behavior: Guarded and Cooperative (minimally) Mood Description: Apprehensive Affect Description: Flat Patient Cognition Impaired: No Ability to Follow Directions: Fair Speech Pattern: Clear Diagnostics Vital Signs (24Hr): Vital Signs - 24 hr 03/08/24 20:00 03/09/24 08:14 Temperature 97.7 F 97.1 F Pulse Rate 75 82 Respiratory Rate 16 14 Blood Pressure 137/72 114/64 Pulse Oximetry 98 97 Oxygen Delivery Method Room Air Room Air BMI result Body Mass Index 26.2 Labs 02/29/24 05:35 02/29/24 05:35 Medications Medications Current Medications Acetaminophen (Acetaminophen 325 Mg Tablet) 650 mg PO Q6H PRN PRN Reason: Headache/Pain Mild Scale (1-3) Last Admin: 03/03/24 09:27 Dose: 650 mg Al Hydroxide/Mg Hydroxide (Magnesium Hydrox/Alum Hydrox 30 Ml Oral.Susp) 30 ml PO Q6H PRN PRN Reason: Heartburn/Nausea Aripiprazole (Aripiprazole 15 Mg Tablet) 15 mg PO DAILY [facility] Last Admin: 03/09/24 08:17 Dose: 15 mg Benzocaine (Throat Lozenge, Medicated Lozenge) 1 lozenge MUCOUS MEM Q2H PRN PRN Reason: Sore Throat Last Admin: 03/01/24 08:53 Dose: 1 lozenge Benzonatate (Benzonatate 100 Mg Capsule) 200 mg PO TID PRN PRN Reason: Cough Gabapentin (Gabapentin 400 Mg Capsule) 400 mg PO TID [facility] Last Admin: 03/09/24 08:17 Dose: 400 mg Guaifenesin/Dextromethorphan (Guaifenesin Dm 100/10/5 Ml 5 Ml Syrup) 5 ml PO Q4H PRN PRN Reason: Cough Last Admin: 03/01/24 20:40 Dose: 5 ml Hydroxyzine HCl (Hydroxyzine Hcl 25 Mg Tablet) 25 mg PO Q6H PRN PRN Reason: Anxiety Last Admin: 03/06/24 21:11 Dose: 25 mg Magnesium Hydroxide (Milk Of Magnesia 30 Ml Oral.Susp) 30 ml PO DAILY PRN PRN Reason: Constipation Methadone HCl (Methadone Hcl 20 Mg/2 Ml Oral.Conc) 115 mg PO DAILY [facility] Last Admin: 03/09/24 08:16 Dose: 115 mg Mirtazapine (Mirtazapine 15 Mg Tablet) 37.5 mg PO BEDTIME [facility] Last Admin: 03/08/24 20:09 Dose: 37.5 mg Mirtazapine (Mirtazapine 7.5 Mg Tablet) 7.5 mg PO BEDTIME PRN PRN Reason: insomnia Nicotine (Nicotine 21 Mg Patch.Td24) 21 mg TRANSDERMA DAILY [facility] Last Admin: 03/09/24 08:37 Dose: Not Given Nicotine Polacrilex (Nicotine Polacrilex 2 Mg Gum) 4 mg BUCCAL Q2H PRN PRN Reason: Nicotine Cravings Prazosin HCl (Prazosin Hcl 1 Mg Capsule) 4 mg PO BEDTIME [facility]; Protocol Trazodone HCl (Trazodone Hcl 50 Mg Tablet) 50 mg PO BEDTIME [facility] Last Admin: 03/08/24 20:10 Dose: 50 mg Allergies Allergies Allergy/AdvReac Type Severity Reaction Status Date / Time mayonnaise [MAYONNAISE] Allergy Unknown RASH Verified 02/29/24 05:15 seafood Allergy Unknown Rash Verified 02/29/24 05:15 Assessment & Plan Assessment & Plan (1) Bipolar II disorder: Status: Acute Code(s): F31.81 - Bipolar II disorder (2) Influenza A: Status: Acute Code(s): J10.1 - Influenza due to other identified influenza virus with other respiratory manifestations (3) Opioid use disorder: Status: Acute Code(s): F11.90 - Opioid use, unspecified, uncomplicated (4) Post traumatic stress disorder (PTSD): Status: Acute Code(s): F43.10 - Post-traumatic stress disorder, unspecified (5) Cocaine abuse: Status: Acute Code(s): F14.10 - Cocaine abuse, uncomplicated Plan 03/01/24-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 agreeable to take abilify instead of latuda, as latuda makes her nauseated on an empty stomach. appears unwell, poor eye contact, lying on bed in isolation room due to flu. 03/04: contact precautions over, pt up and about the unit more. increase gabapentin to 300 TID for anxiety, remeron to 30 QHS for insomnia. DC latuda, increase abilify dosing to 10 mg daily. 03/05: poor sleep. increase remeron to 30 mg QHS with 15 mg repeat PRN. otherwise continue current mgmt. recommended to F/U with [facility] on her own and to accept bed at [facility] should one be offered her and no information is forthcoming from [facility]. 03/06: aware she must do rehab prior to returning to [facility], after speaking with them. interested in [facility]. no safety concerns, mood or psychotic Sx complaints. continue current mgmt, update [facility] on clinical presentation. increase HS remeron to 37.5 mg and gabapentin to 400 TID. 03/07: poor sleep, asking for trazodone to be added back. MD agrees to reinstate trazodone 50. pt agrees to increase abilify to 15 mg QHS as well. awaiting word from [facility]. 03/08 prazosin 2mg po qhs 03/09 increase prazosin 4mg po qhs. monitor BP Reason for continued inpatient stay Substantial Risk for: inability to function Time Spent With Patient Time: Total time managing care of this patient today ____ minutes.
[2024-03-09 20:00] VITALS: BP 105/64; PULSE 76; RESP 16; TEMP 36.8; O2SAT 96
[2024-03-09] MEDS: Prazosin HCL 1 MG CAPSULE 4 MG PO (20:15)
[2024-03-09] MEDS: Mirtazapine 15 MG TABLET 37.5 MG PO (20:16)
[2024-03-09] MEDS: traZODone HCL 50 MG TABLET PO (20:16)
[2024-03-10 07:35] VITALS: BP 106/58; PULSE 71; RESP 18; TEMP 36.8; O2SAT 96
[2024-03-10] MEDS: methADONE HCl 20 MG/2 ML ORAL.CONC 115 MG PO (08:03)
[2024-03-10] MEDS: Gabapentin 400 MG CAPSULE PO ×3 (08:40→20:44)
[2024-03-10] MEDS: ARIPiprazole 15 MG TABLET PO (08:40)
--- NOTE | 2024-03-10 16:22 | HO.PSYCHPN ---
Subjective Subjective Date of Service: 03/10/24 Reason For Visit: SI Interim History: calm, cooperative. c/o nightmares and insomnia, asking to increase prazosin and trazodone. awaiting word from [facility]. per staff, irritable. falling asleep at table in kitchen after morning meds. napped most of the day yesterday. Mental Status Exam Mental Status Exam Narrative: A&O. Pt in own clothes, up and about the unit. fair eye contact, attentive. No Tics or Tremors. No abnormal involuntary movements, no PMA/PMR. Calm. Non-pressured speech, non-spontaneous with regular rate and rhythm, normal volume and prosody. No prolonged speech latency or dysarthria. Mood is good, affect is constricted. no SI/HI/AVH expressed. Thoughts are coherent. No known cognitive or memory impairment. Insight/Judgment fair. Diagnostics Vital Signs (24Hr): Vital Signs - 24 hr 03/09/24 20:00 03/10/24 07:35 Temperature 98.2 F 98.2 F Pulse Rate 76 71 Respiratory Rate 16 18 Blood Pressure 105/64 106/58 L Pulse Oximetry 96 96 Oxygen Delivery Method Room Air Room Air BMI result Body Mass Index 26.2 Labs 02/29/24 05:35 02/29/24 05:35 Medications Medications Current Medications Acetaminophen (Acetaminophen 325 Mg Tablet) 650 mg PO Q6H PRN PRN Reason: Headache/Pain Mild Scale (1-3) Last Admin: 03/03/24 09:27 Dose: 650 mg Al Hydroxide/Mg Hydroxide (Magnesium Hydrox/Alum Hydrox 30 Ml Oral.Susp) 30 ml PO Q6H PRN PRN Reason: Heartburn/Nausea Aripiprazole (Aripiprazole 15 Mg Tablet) 15 mg PO DAILY [facility] Last Admin: 03/10/24 08:40 Dose: 15 mg Benzocaine (Throat Lozenge, Medicated Lozenge) 1 lozenge MUCOUS MEM Q2H PRN PRN Reason: Sore Throat Last Admin: 03/01/24 08:53 Dose: 1 lozenge Benzonatate (Benzonatate 100 Mg Capsule) 200 mg PO TID PRN PRN Reason: Cough Gabapentin (Gabapentin 400 Mg Capsule) 400 mg PO TID [facility] Last Admin: 03/10/24 15:47 Dose: 400 mg Guaifenesin/Dextromethorphan (Guaifenesin Dm 100/10/5 Ml 5 Ml Syrup) 5 ml PO Q4H PRN PRN Reason: Cough Last Admin: 03/01/24 20:40 Dose: 5 ml Hydroxyzine HCl (Hydroxyzine Hcl 25 Mg Tablet) 25 mg PO Q6H PRN PRN Reason: Anxiety Last Admin: 03/06/24 21:11 Dose: 25 mg Magnesium Hydroxide (Milk Of Magnesia 30 Ml Oral.Susp) 30 ml PO DAILY PRN PRN Reason: Constipation Methadone HCl (Methadone Hcl 20 Mg/2 Ml Oral.Conc) 115 mg PO DAILY [facility] Last Admin: 03/10/24 08:03 Dose: 115 mg Mirtazapine (Mirtazapine 15 Mg Tablet) 37.5 mg PO BEDTIME [facility] Last Admin: 03/09/24 20:16 Dose: 37.5 mg Mirtazapine (Mirtazapine 7.5 Mg Tablet) 7.5 mg PO BEDTIME PRN PRN Reason: insomnia Nicotine (Nicotine 21 Mg Patch.Td24) 21 mg TRANSDERMA DAILY [facility] Last Admin: 03/10/24 08:42 Dose: Not Given Nicotine Polacrilex (Nicotine Polacrilex 2 Mg Gum) 4 mg BUCCAL Q2H PRN PRN Reason: Nicotine Cravings Prazosin HCl (Prazosin Hcl 5 Mg Capsule) 5 mg PO BEDTIME [facility]; Protocol Trazodone HCl (Trazodone Hcl 25 Mg Halftab) 75 mg PO BEDTIME [facility] Allergies Allergies Allergy/AdvReac Type Severity Reaction Status Date / Time mayonnaise [MAYONNAISE] Allergy Unknown RASH Verified 02/29/24 05:15 seafood Allergy Unknown Rash Verified 02/29/24 05:15 Assessment & Plan Assessment & Plan (1) Bipolar II disorder: Status: Acute Code(s): F31.81 - Bipolar II disorder (2) Influenza A: Status: Acute Code(s): J10.1 - Influenza due to other identified influenza virus with other respiratory manifestations (3) Opioid use disorder: Status: Acute Code(s): F11.90 - Opioid use, unspecified, uncomplicated (4) Post traumatic stress disorder (PTSD): Status: Acute Code(s): F43.10 - Post-traumatic stress disorder, unspecified (5) Cocaine abuse: Status: Acute Code(s): F14.10 - Cocaine abuse, uncomplicated Plan 03/01/24-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 agreeable to take abilify instead of latuda, as latuda makes her nauseated on an empty stomach. appears unwell, poor eye contact, lying on bed in isolation room due to flu. 03/04: contact precautions over, pt up and about the unit more. increase gabapentin to 300 TID for anxiety, remeron to 30 QHS for insomnia. DC latuda, increase abilify dosing to 10 mg daily. 03/05: poor sleep. increase remeron to 30 mg QHS with 15 mg repeat PRN. otherwise continue current mgmt. recommended to F/U with [facility] on her own and to accept bed at [facility] should one be offered her and no information is forthcoming from [facility]. 03/06: aware she must do rehab prior to returning to [facility], after speaking with them. interested in [facility]. no safety concerns, mood or psychotic Sx complaints. continue current mgmt, update [facility] on clinical presentation. increase HS remeron to 37.5 mg and gabapentin to 400 TID. 03/07: poor sleep, asking for trazodone to be added back. MD agrees to reinstate trazodone 50. pt agrees to increase abilify to 15 mg QHS as well. awaiting word from [facility]. 03/08 prazosin 2mg po qhs 03/09 increase prazosin 4mg po qhs. monitor BP 03/10: increase prazosin to 5 mg QHS for nightmares. increase trazodone to 75 mg QHS for insomnia. awaiting word from [facility]. Reason for continued inpatient stay Substantial Risk for: inability to function Time Spent With Patient Time: Total time managing care of this patient today __25__ minutes.
[2024-03-10 20:00] VITALS: BP 115/60; PULSE 86; RESP 16; TEMP 36.8; O2SAT 96
[2024-03-10] MEDS: traZODone HCL 25 MG HALFTAB 75 MG PO (20:44)
[2024-03-10] MEDS: Prazosin HCL 5 MG CAPSULE PO (20:44)
[2024-03-10] MEDS: Mirtazapine 15 MG TABLET 37.5 MG PO (20:44)
[2024-03-11 08:00] VITALS: BP 102/58; PULSE 71; RESP 16; TEMP 36.9; O2SAT 95
[2024-03-11] MEDS: methADONE HCl 20 MG/2 ML ORAL.CONC 115 MG PO (08:04)
[2024-03-11] MEDS: Gabapentin 400 MG CAPSULE PO ×3 (08:24→20:08)
[2024-03-11] MEDS: ARIPiprazole 15 MG TABLET PO (08:24)
--- NOTE | 2024-03-11 13:28 | HO.PSYCHPN ---
Subjective Subjective Date of Service: 03/11/24 Reason For Visit: SI Interim History: seen during visit with her mother. calm, cooperative. discouraged re need to discharge if can't get into program by . offers [facility] as an option, pt was provided with contact info. asks for prazosin to be increased but other sleep meds to remain the same. per staff, difficult to engage. terse. can't go to [facility] due to h/o threatening staff there. Mental Status Exam Mental Status Exam Narrative: A&O. Pt in own clothes, up and about the unit. fair eye contact, attentive. No Tics or Tremors. No abnormal involuntary movements, no PMA/PMR. Calm. Non-pressured speech, non-spontaneous with regular rate and rhythm, normal volume and prosody. No prolonged speech latency or dysarthria. Mood is demoralized, affect is constricted. no SI/HI/AVH expressed. Thoughts are coherent. No known cognitive or memory impairment. Insight/Judgment fair. Diagnostics Vital Signs (24Hr): Vital Signs - 24 hr 03/10/24 20:00 03/11/24 08:00 Temperature 98.3 F 98.4 F Pulse Rate 86 71 Respiratory Rate 16 16 Blood Pressure 115/60 102/58 L Pulse Oximetry 96 95 Oxygen Delivery Method Room Air Room Air BMI result Body Mass Index 26.2 Labs 02/29/24 05:35 02/29/24 05:35 Medications Medications Current Medications Acetaminophen (Acetaminophen 325 Mg Tablet) 650 mg PO Q6H PRN PRN Reason: Headache/Pain Mild Scale (1-3) Last Admin: 03/03/24 09:27 Dose: 650 mg Al Hydroxide/Mg Hydroxide (Magnesium Hydrox/Alum Hydrox 30 Ml Oral.Susp) 30 ml PO Q6H PRN PRN Reason: Heartburn/Nausea Aripiprazole (Aripiprazole 15 Mg Tablet) 15 mg PO DAILY [facility] Last Admin: 03/11/24 08:24 Dose: 15 mg Benzocaine (Throat Lozenge, Medicated Lozenge) 1 lozenge MUCOUS MEM Q2H PRN PRN Reason: Sore Throat Last Admin: 03/01/24 08:53 Dose: 1 lozenge Benzonatate (Benzonatate 100 Mg Capsule) 200 mg PO TID PRN PRN Reason: Cough Gabapentin (Gabapentin 400 Mg Capsule) 400 mg PO TID [facility] Last Admin: 03/11/24 08:24 Dose: 400 mg Guaifenesin/Dextromethorphan (Guaifenesin Dm 100/10/5 Ml 5 Ml Syrup) 5 ml PO Q4H PRN PRN Reason: Cough Last Admin: 03/01/24 20:40 Dose: 5 ml Hydroxyzine HCl (Hydroxyzine Hcl 25 Mg Tablet) 25 mg PO Q6H PRN PRN Reason: Anxiety Last Admin: 03/06/24 21:11 Dose: 25 mg Magnesium Hydroxide (Milk Of Magnesia 30 Ml Oral.Susp) 30 ml PO DAILY PRN PRN Reason: Constipation Methadone HCl (Methadone Hcl 20 Mg/2 Ml Oral.Conc) 115 mg PO DAILY [facility] Last Admin: 03/11/24 08:04 Dose: 115 mg Mirtazapine (Mirtazapine 15 Mg Tablet) 37.5 mg PO BEDTIME [facility] Last Admin: 03/10/24 20:44 Dose: 37.5 mg Mirtazapine (Mirtazapine 7.5 Mg Tablet) 7.5 mg PO BEDTIME PRN PRN Reason: insomnia Nicotine (Nicotine 21 Mg Patch.Td24) 21 mg TRANSDERMA DAILY [facility] Last Admin: 03/11/24 08:25 Dose: Not Given Nicotine Polacrilex (Nicotine Polacrilex 2 Mg Gum) 4 mg BUCCAL Q2H PRN PRN Reason: Nicotine Cravings Prazosin HCl (Prazosin Hcl 1 Mg Capsule) 6 mg PO BEDTIME [facility]; Protocol Trazodone HCl (Trazodone Hcl 25 Mg Halftab) 75 mg PO BEDTIME [facility] Last Admin: 03/10/24 20:44 Dose: 75 mg Allergies Allergies Allergy/AdvReac Type Severity Reaction Status Date / Time mayonnaise [MAYONNAISE] Allergy Unknown RASH Verified 02/29/24 05:15 seafood Allergy Unknown Rash Verified 02/29/24 05:15 Assessment & Plan Assessment & Plan (1) Bipolar II disorder: Status: Acute Code(s): F31.81 - Bipolar II disorder (2) Influenza A: Status: Acute Code(s): J10.1 - Influenza due to other identified influenza virus with other respiratory manifestations (3) Opioid use disorder: Status: Acute Code(s): F11.90 - Opioid use, unspecified, uncomplicated (4) Post traumatic stress disorder (PTSD): Status: Acute Code(s): F43.10 - Post-traumatic stress disorder, unspecified (5) Cocaine abuse: Status: Acute Code(s): F14.10 - Cocaine abuse, uncomplicated Plan 03/01/24-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 agreeable to take abilify instead of latuda, as latuda makes her nauseated on an empty stomach. appears unwell, poor eye contact, lying on bed in isolation room due to flu. 03/04: contact precautions over, pt up and about the unit more. increase gabapentin to 300 TID for anxiety, remeron to 30 QHS for insomnia. DC latuda, increase abilify dosing to 10 mg daily. 03/05: poor sleep. increase remeron to 30 mg QHS with 15 mg repeat PRN. otherwise continue current mgmt. recommended to F/U with [facility] on her own and to accept bed at [facility] should one be offered her and no information is forthcoming from [facility]. 03/06: aware she must do rehab prior to returning to [facility], after speaking with them. interested in [facility]. no safety concerns, mood or psychotic Sx complaints. continue current mgmt, update [facility] on clinical presentation. increase HS remeron to 37.5 mg and gabapentin to 400 TID. 03/07: poor sleep, asking for trazodone to be added back. MD agrees to reinstate trazodone 50. pt agrees to increase abilify to 15 mg QHS as well. awaiting word from [facility]. 03/08 prazosin 2mg po qhs 03/09 increase prazosin 4mg po qhs. monitor BP 03/10: increase prazosin to 5 mg QHS for nightmares. increase trazodone to 75 mg QHS for insomnia. awaiting word from [facility]. 03/11: [facility] will not take pt due to her h/o threatening staff there. informed she will discharge on . exploring other options. asks for prazosin to be increased, dose increased to 6 mg QHS as of tonight. otherwise continue current mgmt. Reason for continued inpatient stay Substantial Risk for: inability to function and rapid decompensation Time Spent With Patient Time: Total time managing care of this patient today __25__ minutes.
[2024-03-11 20:00] VITALS: BP 129/71; PULSE 79; RESP 16; TEMP 36.3; O2SAT 97
[2024-03-11] MEDS: Mirtazapine 15 MG TABLET 37.5 MG PO (20:07)
[2024-03-11] MEDS: Prazosin HCL 1 MG CAPSULE 6 MG PO (20:08)
[2024-03-11] MEDS: traZODone HCL 25 MG HALFTAB 75 MG PO (20:10)
[2024-03-12 07:37] VITALS: BP 89/53; PULSE 75; RESP 16; TEMP 36.8; O2SAT 95
[2024-03-12] MEDS: methADONE HCl 20 MG/2 ML ORAL.CONC 115 MG PO (07:51)
[2024-03-12] MEDS: Gabapentin 400 MG CAPSULE PO ×3 (08:21→20:24)
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
[2024-03-12 20:00] VITALS: BP 111/65; PULSE 83; RESP 16; TEMP 36.6; O2SAT 98
[2024-03-12] MEDS: traZODone HCL 25 MG HALFTAB 75 MG PO (20:19)
[2024-03-12] MEDS: Prazosin HCL 1 MG CAPSULE 7 MG PO (20:21)
[2024-03-12] MEDS: Mirtazapine 15 MG TABLET 37.5 MG PO (20:22)
[2024-03-12] MEDS: ARIPiprazole 15 MG TABLET PO (20:24)
[2024-03-13 07:00] VITALS: BMI 27.2
[2024-03-13 08:00] VITALS: BP 137/71; PULSE 75; RESP 16; TEMP 36.9; O2SAT 95
[2024-03-13] MEDS: methADONE HCl 20 MG/2 ML ORAL.CONC 115 MG PO (08:10)
[2024-03-13] MEDS: Gabapentin 400 MG CAPSULE PO (08:55)
[2024-03-13] MEDS: hydrOXYzine HCL 25 MG TABLET PO (10:05)
== END 2024-03-13 10:48 | DRG 753 ==
LOC: HO.ED 08:53 → HO.PADLT16 19:08
PROVIDERS: Physician Assistant; Admitting Provider Psychiatry & Neurology Psychiatry; Emergency Provider Emergency Medicine; Visit Provider Psychiatry & Neurology Psychiatry
DX: F31.81 Bipolar II disorder (principal); R45.851 Suicidal ideations; F11.20 Opioid dependence, uncomplicated; F14.10 Cocaine abuse, uncomplicated; F43.12 Post-traumatic stress disorder, chronic; J10.1 Influenza due to other identified influenza virus with other respiratory manifestations; Z87.891 Personal history of nicotine dependence; Z79.899 Other long term (current) drug therapy
CPT/HCPCS: 0241U; 36415; 71046; 80053; 80143; 80179; 80307; 81001; 81025; 85025; 87086; 87088; 87186; 99285

== ENCOUNTER → 2024-02-29 06:00 | Outpatient (BNV) | payer MEDICAID, SELFPAY | PROVIDERS: Visit Provider Radiology Vascular & Interventional Radiology | DX: J84.9 Interstitial pulmonary disease, unspecified (principal) | CPT/HCPCS: 71046 ==

== ENCOUNTER → 2024-02-29 19:07 | Outpatient (BNV) | payer OTHER, SELFPAY | PROVIDERS: Admitting Provider Psychiatry & Neurology Psychiatry; Emergency Provider Emergency Medicine; Visit Provider Psychiatry & Neurology Psychiatry | DX: F31.81 Bipolar II disorder (principal); F14.10 Cocaine abuse, uncomplicated; F11.90 Opioid use, unspecified, uncomplicated; F43.11 Post-traumatic stress disorder, acute | CPT/HCPCS: 99232 ==

== ENCOUNTER 2024-11-23 09:50 | Inpatient (IN) | payer MEDICAID, OTHER, SELFPAY ==
[2024-11-23 09:53] VITALS: BP 132/85; BP 90/57; PULSE 68; PULSE 69; RESP 16; TEMP 36.5; O2SAT 98; BMI 32.5
--- NOTE | 2024-11-23 10:15 | PC.NURSE ---
Pt presents to ED via EMS. +SI with plan to hang herself. Withdraw day 2 off of methadone and heroin. Confirmed methadone dose with [facility]. Pt changed over. Becoming increasingly agitated. While waiting for sitter pt refused to have curtain open. Took off gown, began throwing food, combative. Security called to bedside. Pt will be moved to another room where sitter is available.
--- NOTE | 2024-11-23 10:18 | ED.GENADULT ---
HPI - General Adult General Chief complaint: Psychiatric Symptoms Stated complaint: WITHDRAWAL Time Seen by Provider: 11/23/24 10:15 Source: patient and RN notes reviewed Mode of arrival: ambulatory Limitations: no limitations History of Present Illness ED Provider: Zenia Pringle PA-C HPI narrative: This is a 38-year-old female, with a history of bipolar disorder, opioid use disorder, PTSD, and cocaine abuse, who presents emergency department via ambulance with concerns of withdrawing from methadone and heroin. She also reports suicidal ideation with plan to hang herself. Patient reports that she has not received her methadone dosing in 2 days and feels like she is going through withdrawal at this time. Attempted to ask additional questions however patient refusing, stating please leave me the f alone . No chest pain or shortness of breath. MD complaint: Opioid Withdrawal, suicidal ideation Onset (ago): day(s) Relieving factors: none Exacerbating factors: none Associated symptoms: denies other symptoms Treatments prior to arrival: none Related Data Home Medications ?Medication ?Instructions ?Recorded ?Confirmed methadone 10 mg/mL oral 150 mg PO DAILY 02/29/24 11/23/24 concentrate (Methadose) clonazepam 1 mg tablet 1 mg PO TID PRN Anxiety 11/23/24 11/23/24 duloxetine 60 mg capsule,delayed 60 mg PO DAILY 11/23/24 11/23/24 release gabapentin 400 mg capsule 600 mg PO TID 11/23/24 11/23/24 prazosin 1 mg capsule 2 mg PO BEDTIME 11/23/24 11/23/24 zolpidem 10 mg tablet 10 mg PO BEDTIME PRN Insomnia 11/23/24 11/23/24 Previous Rx's ?Medication ?Instructions ?Recorded aripiprazole 15 mg tablet 15 mg PO DAILY 30 days #30 tabs 03/12/24 hydroxyzine HCl 25 mg tablet 25 mg PO TID PRN Anxiety 30 days 03/12/24 #90 tabs Allergies Allergy/AdvReac Type Severity Reaction Status Date / Time mayonnaise (MAYONNAISE) Allergy Unknown RASH Verified 11/23/24 10:02 seafood Allergy Unknown Rash Verified 11/23/24 10:02 Review of Systems Review of Systems: Constitutional : No Fever, No Chills ENT/Mouth : No sore throat, No Rhinorrhea Eyes: No Eye Pain, No Swelling, No Redness Cardiovascular : No Chest Pain, No SOB Respiratory : No Cough, No Sputum Gastrointestinal : No Nausea, No Vomiting, No Diarrhea, No abdominal Pain Genitourinary : No Dysuria, No Hematuria Musculoskeletal : No joint pain, No Myalgias, No Joint Swelling Skin : No Skin Lesions Neuro : No Weakness, No Numbness, No Headache All other systems reviewed and are negative Yes all other systems are reviewed and are negative Constitutional: Constitutional: Reports as per [facility] Past Medical History Attestation statement: The following information was validated with the patient. Medical History Bipolar II disorder Opioid use disorder, moderate, in early remission, on maintenance therapy Asthma Social History Social History Household Members: None Housing: Homeless Do you presently have visiting nurse or other home services: No Patient Tobacco Use Status: Former Tobacco user Tobacco use type: Cigarette Cigarette Packs Per Day: 1 Cigarettes Per Day: 20.0 Years Smoked: 20 years e-Cigarette/Vaping Use: Never Used Second Hand Smoke Exposure: No Use of substances other than those prescribed or required for medical reasons: Yes Substance Use Type: Heroin Advance Directives: No Advance Directives Information Provided: No Do you have a plan to hurt others: No Plan service: No Sexual orientation: Unable to collect Physical Exam ED Vital Signs: Vital Signs - 24 hr 11/23/24 09:53 11/23/24 10:32 11/23/24 13:37 Temperature 97.7 F Pulse Rate 68 69 69 Respiratory Rate 16 16 14 Blood Pressure 90/57 L 108/59 L 94/65 Pulse Oximetry 98 98 97 Oxygen Delivery Method Room Air Room Air Room Air 11/23/24 14:49 11/23/24 20:38 11/23/24 20:39 Temperature 97.9 F 98.6 F Pulse Rate 72 50 Respiratory Rate 18 14 Blood Pressure 102/49 L 97/54 L 97/54 L Pulse Oximetry 95 Oxygen Delivery Method Room Air 11/24/24 06:25 Temperature 97.2 F Pulse Rate 59 Respiratory Rate 18 Blood Pressure 118/62 Pulse Oximetry 92 Oxygen Delivery Method Room Air BMI result Body Mass Index 32.5 Const General: cooperative, comfortable and no acute distress Orientation/consciousness: patient oriented x3 Limitations: no limitations [facility] Head: Yes normal to inspection, Yes normocephalic and Yes atraumatic Ears: hearing grossly normal bilaterally General nose exam: Normal external nose present Face and sinus: Yes normal facial exam Mouth: Normal oral and palatal mucosa present, oropharynx normal and moist mucous membranes Throat: Yes posterior oropharynx normal Eyes General: appearance normal, both eyes and all related structures Eyelids: Yes eyelids normal Conjunctivae: conjunctivae normal Sclerae: sclerae normal Pupils: Equal, round and reactive pupils present EOM: EOMs intact bilaterally Neck Neck: Yes normal visual inspection, Yes full ROM and Yes no lymphadenopathy Lymphatic: no lymphadenopathy noted Chest Chest palpation & inspection: normal inspection of the chest Resp Effort & Inspection: normal respiratory effort and able to speak in complete sentences Auscultation: clear to auscultation bilaterally, no crackles, no rales, no rhonchi and no wheezes Cardio Rate: regular rate Rhythm: regular rhythm Heart sounds: S1 normal heart sound present and S2 normal heart sound present GI Inspection: Yes normal to inspection Skin General skin exam: no rashes or lesions noted Trauma: no lacerations or abrasions Wounds: no wounds Neuro General: patient oriented x3 and moves all extremities Cranial nerves: Yes Equal, round and reactive pupils present Extrem General: Yes normal to inspection Right upper extremity: normal to inspection Left upper extremity: normal to inspection Right lower extremity: normal to inspection Left lower extremity: normal to inspection Psych Appearance: disheveled Speech and movement: Psychomotor agitation in speech present Affect: Hostile affect present Attitude: Belligerent attititude/behavior present and Refuses to answer (attititude/behavior) Thought content: Suicidality present Insight: Poor insight present (Psych) Judgement: Poor judgement present (Psych) Course Reevaluation(s) Reevaluation #1: patient is feeling anxious will order Klonopin and her med rec is done as well Time: 14:32 Reevaluation #2: DR. Kelly's Progress note 08:00, 11/24/2024: Patient in physician observation for psych evaluation, no acute events reported by nurse overnight, no current complaints, VSS, care team input is appreciated, bed search is underway, continue physician observation. Medications Administered Generic Name Dose Route Start Last Admin Trade Name Freq PRN Reason Stop Dose Admin Clonazepam 1 mg 11/23/24 14:33 11/23/24 14:50 Clonazepam 1 Mg Tablet PO 1 mg TID PRN Administration Anxiety Gabapentin 600 mg 11/23/24 15:00 11/23/24 20:39 Gabapentin 300 Mg Capsule PO 600 mg TID JOAQUIN Administration Hydroxyzine HCl 25 mg 11/23/24 14:33 11/23/24 14:51 Hydroxyzine Hcl 25 Mg Tablet PO 25 mg TID PRN Administration Anxiety Prazosin HCl 2 mg 11/23/24 21:00 11/23/24 20:39 Prazosin Hcl 1 Mg Capsule PO 2 mg BEDTIME JOAQUIN Administration Protocol Zolpidem Tartrate 10 mg 11/23/24 14:33 11/23/24 20:39 Zolpidem Tartrate 5 Mg Tablet PO 10 mg BEDTIME PRN Administration Insomnia Discontinued Medications Generic Name Dose Route Start Last Admin Trade Name Freq PRN Reason Stop Dose Admin Methadone HCl 150 mg 11/23/24 11:22 11/23/24 12:09 Methadone Hcl 20 Mg/2 Ml Oral.Conc PO 11/23/24 11:23 150 mg ONCE ONE Administration Medical Decision Making Medical Decision Making [facility] Narrative: This is a 38-year-old female, with a past medical history of opioid use disorder, cocaine abuse, PTSD, and bipolar disorder, who presents emergency department via EMS with concerns of opioid withdrawal. On arrival, patient's blood pressure low at 90/57, all other vital signs within normal limits. Patient very agitated, not answering much of my questioning. We will call over to methadone facility for confirmation of last dose. She is also suicidal with plan to hang herself. Sitter at bedside. Will obtain labs, U tox. Patient will also be assessed by the care team. 2:40 PM 11/23/2024 (Zenia Pringle PA-C): Labs returned, she has slight leukocytosis at 12, no profound left-sided shift. Chemistry revealing no significant electrolyte derangement. Patient does have elevated liver enzymes, AST ALT 146/143, COVID negative. No abdominal pain. She has a history of elevated liver enzymes. Patient was moved back to the pod. Will await crisis evaluation. Differential Diagnosis Differential Diagnoses: The differential diagnosis associated with the presentation includes Methadone dosing, methadone withdrawal, opioid use disorder, depression, anxiety, suicidal ideation Lab Data [facility] Lab Attestation statement: I reviewed the patient's lab results. See MDM 11/23/24 12:56 11/23/24 12:56 Labs: Lab Results 11/23/24 11/23/24 11/23/24 Range/Units 12:56 12:57 13:34 WBC 12.0 H (4.8-10.8) X10*3/uL RBC 4.14 L (4.20-5.50) X10*6/uL Hgb 12.3 (12.0-16.0) g/dl Hct 36.9 L (37.0-47.0) % MCV 89.1 (80.0-98.0) fL MCH 29.7 (27.0-33.0) pg MCHC 33.3 (31.0-35.0) g/dl RDW 12.3 (11.0-16.0) % Plt Count 275 (160-400) X10*3/uL MPV 10.0 (9.4-12.3) fL Immature Gran % (Auto) 0.3 (0.0-0.4) % Neut % (Auto) 63.3 (45-73) % Lymph % (Auto) 28.8 (20-40) % [place] % (Auto) 7.0 (2-11) % Eos % (Auto) 0.3 (0-4) % Baso % (Auto) 0.3 (0-2) % Lymph # (Auto) 3.4 (1.2-4.9) X10*3/uL [place] # (Auto) 0.8 (0.1-1.2) X10*3/uL Eos # (Auto) 0.0 (0.0-0.4) X10*3/uL Baso # (Auto) 0.0 (0.0-0.2) X10*3/uL Abs Immat Gran (auto) 0.04 H (0.00-0.03) X10*3/uL Absolute Neuts (auto) 7.6 (2.0-8.3) x10*3/uL Absolute Nucleated RBC 0.000 (0.0-0.012) X10*3/uL Nucleated RBC % (auto) 0.0 (0.0-0.2) /100WBC Sodium 138 (135-145) mmol/L Potassium 3.8 (3.3-5.1) mmol/L Chloride 108 (96-108) mmol/L Carbon Dioxide 24 (22-29) mmol/L Anion Gap 10 L (12-20) BUN 17 H (9-16) mg/dL Creatinine 0.72 (0.5-1.4) mg/dL Estim Creat Clear Calc 135.7 Estimated GFR > 60 Random Glucose 118 H (60-115) mg/dL Calcium 9.0 D (8.4-10.2) mg/dL Total Bilirubin 1.0 (0.0-1.0) mg/dL AST 146 H (5-31) U/L ALT 143 H (0-31) U/L Alkaline Phosphatase 97 (39-117) U/L Total Protein 7.7 (6.5-8.0) g/dL Albumin 4.3 (3.5-5.0) g/dL Salicylates < 5.0 L (15-30) mg/dL Acetaminophen < 3 (<30) mcg/mL Ethyl Alcohol < 10 mg/dL COVID-19 (ROMAN) Negative (Negative) COVID-19 Clin Com See Note Discharge Plan Discharge Clinical Impression: Suicidal ideation Prescriptions: No Action methadone [Methadose] 10 mg/mL Concentrate 150 mg PO DAILY hydroxyzine HCl 25 mg Tablet 25 mg PO TID PRN (Reason: Anxiety) 30 Days Qty: 90 0RF aripiprazole 15 mg Tablet 15 mg PO DAILY 30 Days Qty: 30 0RF clonazepam 1 mg tablet 1 mg PO TID PRN (Reason: Anxiety) zolpidem 10 mg tablet 10 mg PO BEDTIME PRN (Reason: Insomnia) gabapentin 400 mg capsule 600 mg PO TID prazosin 1 mg capsule 2 mg PO BEDTIME Protocol: Hold for SBP< HOLD for SBP < : 90 duloxetine 60 mg capsule,delayed release(DR/EC) 60 mg PO DAILY Interventions: [place]-Suicide Risk Severity Scale Last Done: 11/23/24 10:14 Print Language: Unable To Collect
--- OUTSIDE RECORDS SUMMARY | 2024-11-23 10:26 | XMS_ITS | Clinical Summary ---
Author Organization [email or web address] Address [address] [place] [address] [address] [place] [address] Care Team Providers Care Security Services Manager Name Role Phone Unavailable Primary Care Provider Unavailabl e Social History Tobacco Use Types Packs/Day Years Used Date Smoking Tobacco: Never Assessed Comments Unknown Sex and Gender Information Value Date Recorded Sex Assigned at Female 12/26/2023 10:15 AM EDT Legal Sex Female 3:26 PM EDT Gender Identity Female 12/26/2023 10:15 AM EDT Sexual Orientation Straight 12/26/2023 10 :15 AM EDT Plan of Treatment Health Maintenance Due Date Last Done Comments Depression Screening 1987 HIV Screening 1987 SDOH Screening 1987 Disability Screening 1987 Alcohol/Substance Use Screening 1999 Tobacco Screening 1999 Family Planning (PISQ) 12/21/2002 HPV Vaccines (1 - 3-dose series) 12/21/2002 Hepatitis C Screening 12/21/2005 DTaP/Tdap/Td Vaccines (1 - Tdap) 12/21/2006 Hepatitis B Vaccines (1 of 3 - 19+ 3-dose series) 12/21/2006 Pap Smear 12/21/2008 Cervical Cancer Screening 12/21/2017 HPV/Cotest 12/21/2017 COVID-19 Vaccine ( - 2023-2 5 season) 2024 Influenza Vaccine (#1) 2024 Zoster Vaccines (1 of 2) 12/21/2037 RSV Patients and Pa tients Aged 60 years or older (1 - 1-dose 75+ series) 12/21/2062 HIB Vaccines Aged Out No longer eligi ble based on patient's age to complete this topic Hepatitis A Vaccines Aged Out No long er eligible based on patient's age to complete this topic IPV Vaccines Aged Out No longer eligi ble based on patient's age to complete this topic Meningococcal B Vaccine Aged Out No l onger eligible based on patient's age to complete this topic Meningococcal Vaccine Aged Out No ko priscila eligible based on patient's age to complete this topic Pneumococcal Vaccine: Pediat rics (0 to 5 Years) and At-Risk Patients (6 to 49) Years Aged Out No longer eligible b ased on patient's age to complete this topic RSV under 20 months Aged Out No longe r eligible based on patient's age to complete this topic Rotavirus Vaccines Aged Out No longer eligible based on patient's age to complete this topic Insurance [facility] ([facility] [place] [id number]
--- OUTSIDE RECORDS SUMMARY | 2024-11-23 10:26 | XMS_ITS ---
Author Name [facility] Organization Unknown Care Team Organization Name Specialty Phone Email Start Date End Da te [facility] Alan Sanchez Primary Care 01/03/2022 10/15/2023
--- OUTSIDE RECORDS SUMMARY | 2024-11-23 10:26 | XMS_ITS | Encounter Summary ---
Author Organization [employer] Address [address] [place] [address] [address] [place] [address] Care Team Providers Care Director Day Care [facility] Name Role Phone Unavailable Primary Care Provider Unavailabl e Reason for Referral * Consultation (Routine) - Closed Specialty Diagnoses / Procedures Referred By Nahomi t Referred To Contact Behavioral Health Diagnoses Substance use disorder Venkatesh Bowen MD [address] [place] [address] Phone: tel: fax: Referral ID Status Reason Start Date Expiration Date V isits Requested Visits Authorized [id number] Closed Specialty Services Required 12/27/2023 12/26/2024 1 1 Encounter Details Date Type Department Care Team (Late st Contact Info) Description 12/27/2023 Orders Only [facility] [address] [place] [address] Odalys Orr RN Substance use disorder Social History Tobacco Use Types Packs/Day Years Used Date Smoking Tobacco: Never Assessed Comments Unknown Sex and Gender Information Value Date Recorded Sex Assigned at Female 12/26/2023 10:15 AM EDT Legal Sex Female 3:26 PM EDT Gender Identity Female 12/26/2023 10:15 AM EDT Sexual Orientation Straight 12/26/2023 10 :15 AM EDT documented as of this encounter Plan of Treatment Scheduled Referrals Name Type Priority Associated Diagnoses Order Schedule Referral to Behavioral Health Outpatient Referral Routine Substance use disorder Expected: 12/27/2023 (Approximate), Expires: 12/26/2024 documented as of this encounter Procedures Procedure Name Priority Date/Time Associated Diagnosis Comments HCG, QL, URINE Routine 02/29/2024 5:35 AM EST Substance use disorder documented in this encounter Results * HCG, Qualitative, Urine (02/29/2024 5:35 AM EST) Urine NEGATIVE NEGATIVE [facility] Comment:This test was develo ped to detect early . Falsenegative results may occur after the 5th - 7th week ofpregnancy when using this test method. If clinicallyindicated, consider a serum hCG. 02/29/2024 5:35 AM EST 02/29/2024 10:38 AM EST us Generic External Data Provider LAB URINE ORDERAB LES Final Result [facility] [address] [place] [phone] documented in this encounter Visit Diagnoses Diagnosis Substance use disorder documented in this encounter
[2024-11-23 10:32] VITALS: BP 108/59; PULSE 69; RESP 16; O2SAT 98
--- NOTE | 2024-11-23 11:35 | HE.PHANOTE ---
RE: METHADONE DOSING Last dose of methadone 150 mg was given on 11/21/24 @0900 per Maria Esther at [facility] [phone]. Patient was also given 6 take home doses but per pt (to nurse Kim Weaver), she did not take any.
[2024-11-23] MEDS: methADONE HCl 20 MG/2 ML ORAL.CONC 150 MG PO (12:09)
[2024-11-23 13:04] LABS: MANUAL DIFF FLAG NO
[2024-11-23 13:07] LABS: Hematocrit 36.9 % (37.0-47.0); Hemoglobin 12.3 g/dl (12.0-16.0); Imm Gran Abs Auto 0.04 X10*3/uL (0.00-0.03); Imm Gran Pct Auto 0.3 % (0.0-0.4); Lymphocytes Absolute Auto 3.4 X10*3/uL (1.2-4.9); Mean Corpuscular HGB Conc 33.3 g/dl (31.0-35.0); Mean Corpuscular Hemoglobin 29.7 pg (27.0-33.0); Mean Corpuscular Volume 89.1 fL (80.0-98.0); NRBC Abs Auto 0.000 X10*3/uL (0.0-0.012); NRBC Pct Auto 0.0 /100WBC (0.0-0.2); Platelet Count 275 X10*3/uL (160-400); Red Blood Count 4.14 X10*6/uL (4.20-5.50); White Blood Count 12.0 X10*3/uL (4.8-10.8)
[2024-11-23 13:28] LABS: Acetaminophen LAB < 3 mcg/mL (<30); Salicylate < 5.0 mg/dL (15-30)
[2024-11-23 13:28] LABS: Alanine Aminotransferase 143 U/L (0-31); Albumin Level 4.3 g/dL (3.5-5.0); Alkaline Phosphatase 97 U/L (39-117); Anion Gap 10 (12-20); Aspartate Amino Transferase 146 U/L (5-31); Blood Urea Nitrogen 17 mg/dL (9-16); Calcium 9.0 mg/dL (8.4-10.2); Carbon Dioxide 24 mmol/L (22-29); Chloride 108 mmol/L (96-108); Creatinine Clr Calc Pharmacy 135.7; Estimated Glomerular Filt Rate > 60; Potassium 3.8 mmol/L (3.3-5.1); Sodium 138 mmol/L (135-145); Total Protein 7.7 g/dL (6.5-8.0)
[2024-11-23 13:37] VITALS: BP 94/65; PULSE 69; RESP 14; O2SAT 97
[2024-11-23 13:53] LABS: COVID-19 Test Negative (Negative); IDNOW Serial# 152EDE1D
--- NOTE | 2024-11-23 14:17 | MHC.EDTECH ---
Patient arrived to pod with vape, bracelet 5 rings and lip ring. Vape and bracelet locked with belongings. Per RN unable to remove rings.
[2024-11-23 14:49] VITALS: BP 102/49; PULSE 72; RESP 18; TEMP 36.6; O2SAT 95
--- NOTE | 2024-11-23 16:15 | MHC.CARE ---
Pt will be adult IPLOC. Section 12a in chart for safety.
[2024-11-23 20:38] VITALS: BP 97/54; PULSE 50; RESP 14; TEMP 37
[2024-11-23 20:39] VITALS: BP 97/54
[2024-11-24 06:25] VITALS: BP 118/62; PULSE 59; RESP 18; TEMP 36.2; O2SAT 92
[2024-11-24] MEDS: methADONE HCl 20 MG/2 ML ORAL.CONC 150 MG PO (09:08)
--- NOTE | 2024-11-24 09:59 | ECG_ITS ---
Test Reason : check qt Blood Pressure : */* mmHG Vent. Rate : 61 BPM Atrial Rate : 61 BPM P-R Int : 156 ms QRS Dur : 86 ms QT Int : 570 ms P-R-T Axes : 13 8 1 degrees QTcB Int : 573 ms Normal sinus rhythm Prolonged QT Abnormal ECG No previous ECGs available Referred By: Zenia Pringle Electronically Signed By: MICHAEL KUMAR
--- NOTE | 2024-11-24 11:30 | PC.NURSE ---
pt slept most of the morning, easily woken and medicated as ordered, nad
[2024-11-24 13:08] LABS: Appearance Urine Cloudy; Glucose Urine UA Negative (Negative); PH 6.0 (5.0-9.0); Specific Gravity - Urine >= 1.030 (1.005-1.025); UMIC TRIGGER UA YES
[2024-11-24 13:09] LABS: UPreg QC Valid YES
[2024-11-24 13:18] LABS: Cannabinoid Screen Urine Not Detected (Not Detect)
[2024-11-24 14:00] VITALS: BP 109/64; PULSE 60; RESP 19; TEMP 36.6; O2SAT 97
--- NOTE | 2024-11-24 14:34 | PHA.MEDREC ---
Addendum entered by Evi Orellana [facility] 11/24/24 14:50: REVIEWED BY PHARMACIST Original Note: Pharmacy Consult ? Medication Reconciliation Pharmacy reviewed med rec done by nursing. Spoke with pt and she verified the med rec done by nursing is correct. Pt confirmed she still takes Hydroxyzine 25mg tabs TID PRN Anxiety but didn't remember where she was filling them at this time; I called pt pharmacy ([facility]) and they confirmed the pt last picked up that medication 03/14 for 30 days with them.
[2024-11-24 15:55] VITALS: BP 109/59; PULSE 59; RESP 14; TEMP 36.4; O2SAT 96
[2024-11-24 17:00] VITALS: BMI 31.4
--- NOTE | 2024-11-24 17:04 | PC.ADMIT ---
Nursing admission note: 38 year old female DX: BiPolar II disorder, PTSD (per previous record), Opiate Use D/O moderate - severe, Cocaine use disorder moderate - severe. Referred for treatment by CARE team. Signed conditional voluntary for admission. Patient arrived to [facility] via ambulance endorsing suicidal ideation with plan to hang herself and withdrawal symptoms. Per crisis evaluation patient reported worsening depression, suicidal ideation and medication non adherence. Patient reported sleep has been good, and appetite is poor. Patient arrived to M3 approx 1555. Cooperative with VS, begrudgingly cooperative with skin check. Patient responds to safety assessment however requested to go to bed, and complete admission at later time. Patient continues to report depressed mood, with on going suicidal thoughts. Reports she is able to maintain safety on unit at this time. Eye contact is poor, dressed in hospital attire. Constricted affect. Thoughts linear and organized however reports +AH/+VH. Reports AH are command in nature, tell her to harm others, like if my roommate is irritating me I might harm them . Speech in normal in rate, tone, prosody. Patient requested and received snacks, retreated to room to sleep. Stated she did not want to participate in admission process at this time stating later . Per crisis evaluation patient reported recent relapse after approx 1 year sober. Patient positive for Fentanyl, Opiate, Methadone, Benzo and Cocaine. Currently on MAT dose previously verified. Placed on unit safety checks, see crisis evaluation for further details.
[2024-11-24 21:00] VITALS: BP 119/66; PULSE 80; RESP 17; TEMP 37; O2SAT 96
--- NOTE | 2024-11-25 | ECG_ITS ---
Test Reason : prolonged qt Blood Pressure : */* mmHG Vent. Rate : 54 BPM Atrial Rate : 54 BPM P-R Int : 154 ms QRS Dur : 90 ms QT Int : 580 ms P-R-T Axes : 19 5 10 degrees QTcB Int : 550 ms Sinus bradycardia Prolonged QT Abnormal ECG When compared with ECG of 24-Nov-2024 10:13, No significant change was found Referred By: Nara Elena Electronically Signed By: MICHAEL KUMAR
[2024-11-25 07:44] VITALS: BP 113/59; PULSE 58; RESP 18; TEMP 37.1; O2SAT 96
[2024-11-25] MEDS: methADONE HCl 20 MG/2 ML ORAL.CONC 150 MG PO (08:14)
--- NOTE | 2024-11-25 09:07 | HO.PM.IMCN ---
History of Present Illness Data of Consult Service Date: 11/25/24 Primary Care Provider: [facility] Reason for consult: Medical management 38-year-old female with a past medical history of bipolar disorder, opioid use disorder on methadone, PTSD and cocaine abuse presented to the ED with concerns of withdrawing from methadone and heroin. She also reported suicidal ideation with plans to hang herself. In the ED her workup included CBC with a slight leukocytosis with no left side shift, no electrolyte abnormalities. Slightly elevated liver enzymes at baseline, COVID was negative. Negative EtOH. EKG with normal sinus rhythm with a prolonged QTc of 573. Urinalysis positive for infection, she is being treated with Ceftin. Denies any dysuria. On exam she denies any shortness of breath, dizziness, abdominal pain, appears comfortable in no apparent distress. She is sleepy, received her methadone dose this morning. Repeat EKG demonstrated QTC of 580. Review of Systems Review of Systems: Denies any shortness of breath, chest pain, dizziness, lightheadedness, abdominal pain or discomfort, nausea vomiting or diarrhea PMFSH Medical History Bipolar II disorder Opioid use disorder, moderate, in early remission, on maintenance therapy Asthma Social History Household Members: Unknown / Unable to assess Housing: Other Housing Other:: Sober living home Patient Tobacco Use Status: Former Tobacco user Tobacco use type: Cigarette Cigarette Packs Per Day: 1 Cigarettes Per Day: 20.0 Years Smoked: 20 years e-Cigarette/Vaping Use: Never Used Second Hand Smoke Exposure: No Use of substances other than those prescribed or required for medical reasons: Yes Substance Use Type: Heroin Currently Displaying Signs/Symptoms of Drug Intoxication Withdrawal: No Advance Directives: No Advance Directives Information Provided: No Do you have thoughts of harming others: None Do you have a plan to hurt others: No Plan Recently lost weight without trying: Unsure Nutrition Risks: No Nutritional Risk Patient : No : No service: No Sexual orientation: Don't Know Meds Allergies Allergy/AdvReac Type Severity Reaction Status Date / Time mayonnaise (MAYONNAISE) Allergy Unknown RASH Verified 11/23/24 10:02 seafood Allergy Unknown Rash Verified 11/23/24 10:02 Active Medications: Current Medications Acetaminophen (Acetaminophen 325 Mg Tablet) 650 mg PO Q6H PRN PRN Reason: Headache/Pain, Scale 1-10 Al Hydroxide/Mg Hydroxide (Magnesium Hydrox/Alum Hydrox 30 Ml Oral.Susp) 30 ml PO Q6H PRN PRN Reason: Heartburn/Nausea Aripiprazole (Aripiprazole 15 Mg Tablet) 15 mg PO DAILY [facility] Last Admin: 11/25/24 08:19 Dose: 15 mg Cefuroxime Axetil (Cefuroxime Axetil 500 Mg Tablet) 500 mg PO BID [facility] Stop: 12/01/24 14:44 Last Admin: 11/25/24 08:19 Dose: 500 mg Clonazepam (Clonazepam 1 Mg Tablet) 1 mg PO TID PRN PRN Reason: Anxiety Last Admin: 11/25/24 08:22 Dose: 1 mg Duloxetine HCl (Duloxetine Hcl 60 Mg Capsule.Dr) 60 mg PO DAILY [facility] Last Admin: 11/25/24 08:19 Dose: 60 mg Gabapentin (Gabapentin 300 Mg Capsule) 600 mg PO TID [facility] Last Admin: 11/25/24 08:20 Dose: 600 mg Hydroxyzine HCl (Hydroxyzine Hcl 25 Mg Tablet) 25 mg PO TID PRN PRN Reason: Anxiety Last Admin: 11/25/24 08:22 Dose: 25 mg Magnesium Hydroxide (Milk Of Magnesia 30 Ml Oral.Susp) 30 ml PO DAILY PRN PRN Reason: Constipation Methadone HCl (Methadone Hcl 20 Mg/2 Ml Oral.Conc) 150 mg PO DAILY [facility] Last Admin: 11/25/24 08:14 Dose: 150 mg Nicotine (Nicotine 21 Mg Patch.Td24) 21 mg TRANSDERMA DAILY [facility] Last Admin: 11/25/24 08:23 Dose: Not Given Nicotine Polacrilex (Nicotine Polacrilex 2 Mg Gum) 4 mg BUCCAL Q2H PRN PRN Reason: Nicotine Cravings Prazosin HCl (Prazosin Hcl 1 Mg Capsule) 2 mg PO BEDTIME [facility]; Protocol Last Admin: 11/24/24 21:22 Dose: 2 mg Trazodone HCl (Trazodone Hcl 50 Mg Tablet) 50 mg PO BEDTIME MRX1 PRN PRN Reason: Insomnia Zolpidem Tartrate (Zolpidem Tartrate 5 Mg Tablet) 10 mg PO BEDTIME PRN PRN Reason: Insomnia Last Admin: 11/24/24 21:21 Dose: 10 mg Home Medications ?Medication ?Instructions ?Recorded ?Confirmed ?Last Taken ?Type methadone 10 mg/mL oral 150 mg PO DAILY 02/29/24 11/23/24 11/21/24 History concentrate (Methadose) clonazepam 1 mg tablet 1 mg PO TID PRN Anxiety 11/23/24 11/23/24 11/20/24 History duloxetine 60 mg capsule,delayed 60 mg PO DAILY 11/23/24 11/23/24 11/20/24 History release gabapentin 400 mg capsule 600 mg PO TID 11/23/24 11/23/24 11/20/24 History prazosin 1 mg capsule 2 mg PO BEDTIME 11/23/24 11/23/24 11/20/24 History zolpidem 10 mg tablet 10 mg PO BEDTIME PRN Insomnia 11/23/24 11/23/24 11/20/24 History Physical Exam Vital Signs and Narrative: Vital Signs: Last Vital Signs Temp 98.8 F 11/25/24 07:44 Pulse 58 11/25/24 07:44 Resp 18 11/25/24 07:44 BP 113/59 L 11/25/24 07:44 Pulse Ox 96 11/25/24 07:44 O2 Del Method Room Air 11/25/24 07:44 BMI result Body Mass Index 31.4 Alert and oriented when awakened. Neuro: CN II-X11 intact, no deficits, visual acuity intact EYES: PERRLA, EOM intact ENT: Hearing intact, lips moist Cardiac: S1 S2 RRR, No ectopy Pulmonary: lungs clear to auscultation, No increased WOB. Abdominal: BS active in all 4 quadrants, no guarding or tenderness MSK: Strength 5/5 upper and lower extremities : Deferred Extremities: No edema in lower extremities Psych: Somnolent Skin: Warm and dry, Intact Results Labs 11/23/24 12:56 11/23/24 12:56 Labs: Laboratory Results - last 24 hr 11/24/24 12:58 Urine Color Dark Yellow Urine Appearance Cloudy Urine pH 6.0 Ur Specific [place] >= 1.030 H Urine Protein 30 (1+) H Urine Glucose (UA) Negative Urine Ketones Trace Urine Blood Negative Urine Nitrite Positive H Ur Leukocyte Esterase Large (3+) H Urine RBC 0-2 Urine WBC >50 H Ur Squamous Epith Cells 11-20 Urine Bacteria 4+ Hyaline Casts 3-5 Urine Test NEGATIVE Urine Opiates Screen POSITIVE H Ur Buprenorphine Scrn Not Detected Ur Oxycodone Screen Not Detected Urine Methadone Screen Positive H Urine Fentanyl Screen POSITIVE H Ur Barbiturates Screen Not Detected Ur Phencyclidine Scrn Not Detected Ur Amphetamines Screen Not Detected U Benzodiazepines Scrn POSITIVE H Urine Cocaine Screen POSITIVE H U Marijuana (THC) Screen Not Detected Assessment and Plan (1) Opioid use disorder: Status: Acute (2) Asthma: Status: Acute Plan 38-year-old female with a past medical history of polysubstance use, methadone maintenance, bipolar disorder who presented to the ED with suicidal ideation and symptoms of withdrawal. She is admitted inpatient psych for mood stabilization Polysubstance use/bipolar disorder/suicidal ideation Treatment per psychiatric team Prolonged QTC 580 this morning, patient received her methadone dose. Avoid QTC prolongation agents. DC hydroxyzine Daily EKGs if no improvement in QTc consult Cardiology Asthma Not in acute exacerbation Thank you for allowing me to participate in the care of this patient. Will follow as needed, please notify medical provider with any changes in condition or concerns.
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
[2024-11-25 20:00] VITALS: BP 111/65; PULSE 69; RESP 18; TEMP 37.2; O2SAT 98
--- NOTE | 2024-11-26 06:00 | ECG_ITS ---
Test Reason : recheck QTC Blood Pressure : */* mmHG Vent. Rate : 63 BPM Atrial Rate : 63 BPM P-R Int : 168 ms QRS Dur : 88 ms QT Int : 500 ms P-R-T Axes : 13 8 15 degrees QTcB Int : 511 ms Normal sinus rhythm Prolonged QT Abnormal ECG When compared with ECG of 25-Nov-2024 10:38, No significant change was found Referred By: Nara Elena Electronically Signed By: MICHAEL KUMAR
[2024-11-26 07:45] VITALS: BP 103/66; PULSE 61; RESP 16; TEMP 37; O2SAT 96
--- NOTE | 2024-11-26 08:27 | PM.EVENT ---
Event Note Date of Service: 11/26/24 Event Note: Patient's QTC improved to 511 from 580 yesterday. We will order electrolytes and give 1/2 of methadone dose until lytes are resulted. Time Spent With Patient Time: Total time managing care of this patient today ____ minutes.
[2024-11-26] MEDS: methADONE HCl 20 MG/2 ML ORAL.CONC 75 MG PO ×2 (08:39→12:44)
[2024-11-26 09:42] LABS: Hemoglobin A1C 101.8835 umol/L; Total Hemoglobin (HGBA1C) 3196.9237 umol/L
--- NOTE | 2024-11-26 09:43 | PM.CNCAR ---
History of Present Illness History of Present Illness Date of Service: 11/26/24 Chief complaint: crisis Narrative: This is a cardiology consultation regarding QT prolongation. Per notes, history of bipolar disorder, opioid use disorder on methadone, PTSD, cocaine abuse presented for withdrawing from methadone heroin. She had also reported suicidal ideation. Labs are positive for opiates, methadone, fentanyl, benzos, cocaine. In this context, QT was prolonged and hence we are asked to see here. Patient states that she takes methadone and hence gets periodic EKGs and she was never told to have any problems. She denies any previous history of cardiac issues. No history of any syncope. Also denies any clear family history but she is not willing to give much information. Review of Systems Review of Systems: Yes all other systems are reviewed and are negative Constitutional: Constitutional: Reports as per HPI and Reports no additional constitutional complaints Eyes: Eyes: Reports as per HPI and Denies no additional eye complaints ENT: Denies system reviewed and no additional complaints, except as documented and Reports as per HPI Cardiovascular: Cardiovascular: Reports as per HPI, Reports no additional cardiovascular complaints, Denies acrocyanosis, Denies cool extremities, Denies chest pain, Denies leg edema, Denies lightheadedness, Denies palpitations and Denies dyspnea Respiratory: Respiratory: Reports as per HPI, Denies no additional respiratory complaints and Denies dyspnea Gastrointestinal: Gastrointestinal: Reports as per HPI and Denies no additional gastrointestinal complaints Genitourinary: Genitourinary: Reports as per HPI Musculoskeletal: Musculoskeletal: Reports no additional musculoskeletal complaints and Reports as per HPI Integumentary/Breasts: Skin/Breast: Reports system reviewed and no additional complaints, except as docu Neurologic: Reports system reviewed and no additional complaints, except as documented and Reports as per HPI Psychiatric: Psychiatric: Reports no additional psychiatric complaints and Reports as per HPI Endocrine: Endocrine: Reports no additional endocrine complaints, Reports as per HPI and Denies palpitations Hematologic/Lymphatic: Hematologic/Lymphatic: Reports no additional hematologic/lymphatic complaints and Reports as per HPI Allergic/Immunologic: Allergic/Immunologic: Reports no additional allergic/immunologic complaints and Reports as per HPI PMFSH Past Medical History Medical History Bipolar II disorder Opioid use disorder, moderate, in early remission, on maintenance therapy Asthma Family History Pertinent family history: No pertinent family history Social History Social History Household Members: Unknown / Unable to assess Housing: Other Housing Other:: Sober living home Patient Tobacco Use Status: Former Tobacco user Tobacco use type: Cigarette Cigarette Packs Per Day: 1 Cigarettes Per Day: 20.0 Years Smoked: 20 years e-Cigarette/Vaping Use: Never Used Second Hand Smoke Exposure: No Use of substances other than those prescribed or required for medical reasons: Yes Substance Use Type: Heroin Currently Displaying Signs/Symptoms of Drug Intoxication Withdrawal: No Advance Directives: No Advance Directives Information Provided: No Do you have thoughts of harming others: None Do you have a plan to hurt others: No Plan Recently lost weight without trying: Unsure Nutrition Risks: No Nutritional Risk Patient : No : No service: No Sexual orientation: Don't Know Meds Allergies Allergy/AdvReac Type Severity Reaction Status Date / Time mayonnaise (MAYONNAISE) Allergy Unknown RASH Verified 11/23/24 10:02 seafood Allergy Unknown Rash Verified 11/23/24 10:02 Active Medications: Current Medications Acetaminophen (Acetaminophen 325 Mg Tablet) 650 mg PO Q6H PRN PRN Reason: Headache/Pain, Scale 1-10 Last Admin: 11/26/24 02:03 Dose: 650 mg Al Hydroxide/Mg Hydroxide (Magnesium Hydrox/Alum Hydrox 30 Ml Oral.Susp) 30 ml PO Q6H PRN PRN Reason: Heartburn/Nausea Aripiprazole (Aripiprazole 15 Mg Tablet) 15 mg PO DAILY [facility] Last Admin: 11/26/24 08:19 Dose: 15 mg Cefuroxime Axetil (Cefuroxime Axetil 500 Mg Tablet) 500 mg PO BID [facility] Stop: 12/01/24 14:44 Last Admin: 11/26/24 08:18 Dose: 500 mg Clonazepam (Clonazepam 1 Mg Tablet) 1 mg PO TID PRN PRN Reason: Anxiety Last Admin: 11/26/24 08:20 Dose: 1 mg Doxycycline Monohydrate (Doxycycline Monohydrate 100 Mg Capsule) 100 mg PO Q12H [facility] Stop: 11/30/24 06:01 Last Admin: 11/26/24 05:40 Dose: 100 mg Duloxetine HCl (Duloxetine Hcl 60 Mg Capsule.Dr) 60 mg PO DAILY [facility] Last Admin: 11/26/24 08:18 Dose: 60 mg Gabapentin (Gabapentin 300 Mg Capsule) 600 mg PO TID [facility] Last Admin: 11/26/24 08:19 Dose: 600 mg Magnesium Hydroxide (Milk Of Magnesia 30 Ml Oral.Susp) 30 ml PO DAILY PRN PRN Reason: Constipation Nicotine (Nicotine 21 Mg Patch.Td24) 21 mg TRANSDERMA DAILY [facility] Last Admin: 11/26/24 08:23 Dose: Not Given Nicotine Polacrilex (Nicotine Polacrilex 2 Mg Gum) 4 mg BUCCAL Q2H PRN PRN Reason: Nicotine Cravings Prazosin HCl (Prazosin Hcl 1 Mg Capsule) 2 mg PO BEDTIME [facility]; Protocol Last Admin: 11/25/24 20:19 Dose: 2 mg Zolpidem Tartrate (Zolpidem Tartrate 5 Mg Tablet) 10 mg PO BEDTIME PRN PRN Reason: Insomnia Last Admin: 11/25/24 20:20 Dose: 10 mg Home Medications ?Medication ?Instructions ?Recorded ?Confirmed ?Last Taken ?Type methadone 10 mg/mL oral 150 mg PO DAILY 02/29/24 11/23/24 11/21/24 History concentrate (Methadose) clonazepam 1 mg tablet 1 mg PO TID PRN Anxiety 11/23/24 11/23/24 11/20/24 History duloxetine 60 mg capsule,delayed 60 mg PO DAILY 11/23/24 11/23/24 11/20/24 History release gabapentin 400 mg capsule 600 mg PO TID 11/23/24 11/23/24 11/20/24 History prazosin 1 mg capsule 2 mg PO BEDTIME 11/23/24 11/23/24 11/20/24 History zolpidem 10 mg tablet 10 mg PO BEDTIME PRN Insomnia 11/23/24 11/23/24 11/20/24 History Physical Exam Vital Signs: Vital Signs: Last Vital Signs Temp 98.6 F 11/26/24 07:45 Pulse 61 11/26/24 07:45 Resp 16 11/26/24 07:45 BP 103/66 11/26/24 07:45 Pulse Ox 96 11/26/24 07:45 O2 Del Method Room Air 11/26/24 07:45 BMI result Body Mass Index 31.4 Const: General: comfortable and no acute distress Orientation/consciousness: patient oriented x3 HEENT: Other: Unremarkable Head: Yes normal to inspection Neck: Neck: Yes normal visual inspection Chest: Chest palpation & inspection: normal inspection of the chest Resp: Auscultation: clear to auscultation bilaterally Cardio: Palpation: normal PMI Heart sounds: S1 normal heart sound present, S2 normal heart sound present, no gallops, no murmurs and no rubs GI: Palpation (GI): Soft to palpation Back/Spine/Pelvis: Other: unremarkable Skin: General skin exam: no rashes or lesions noted Neuro: General: patient oriented x3 Extrem: General: Yes normal to inspection Psych: Mental Status: mental status grossly normal Objective Labs and Meds 11/23/24 12:56 11/23/24 12:56 Lab results: Laboratory Results - last 24 hr 11/26/24 09:17 Estimat Average Glucose 100 Hemoglobin A1c % 5.1 ECG Interpretation: EKGs reviewed. Initial EKG with sinus rhythm at 61 and prolonged QTc at 573 milliseconds. In the repeat EKG, it was 550 milliseconds. In today's EKG, it is further improved to 511 milliseconds. Assessment and Plan (1) Prolonged QT interval: Status: Acute (2) Methadone use: Status: Acute (3) Polysubstance abuse: Status: Acute Plan Upon initial admission, positive for opiates, methadone, fentanyl, benzos and cocaine. Markedly prolonged QT but that has improved with serial EKGs. Initial prolongation is most likely related to substance abuse on top of the methadone. In a prior EKG from [facility] from September of 2023, corrected QT was 531 milliseconds. Unclear how much methadone she was on at that time and also what other drugs she had used. Ideally, should obtain EKGs from methadone clinic to see what her usual corrected QT is. Prefer that corrected QT stays under 500 milliseconds to lower the risk of any polymorphic VT. Hence we will need to titrate the methadone dose accordingly. Discussed with the patient but she was argumentative that she absolutely wants the methadone. Message sent to psychiatrist. Procedures Date of Service Date of Service: 11/26/24
[2024-11-26 09:56] LABS: Alanine Aminotransferase 99 U/L (0-31); Albumin Level 3.8 g/dL (3.5-5.0); Alkaline Phosphatase 85 U/L (39-117); Anion Gap 10 (12-20); Aspartate Amino Transferase 76 U/L (5-31); Blood Urea Nitrogen 11 mg/dL (9-16); Calcium 9.0 mg/dL (8.4-10.2); Carbon Dioxide 26 mmol/L (22-29); Chloride 106 mmol/L (96-108); Creatinine Clr Calc Pharmacy 135.3; Estimated Glomerular Filt Rate > 60; Magnesium 1.6 mg/dL (1.6-2.6); Potassium 4.0 mmol/L (3.3-5.1); Sodium 138 mmol/L (135-145); Total Protein 7.1 g/dL (6.5-8.0)
[2024-11-26 10:07] LABS: Alanine Aminotransferase 98 U/L (0-31); Albumin Level 3.8 g/dL (3.5-5.0); Alkaline Phosphatase 83 U/L (39-117); Anion Gap 10 (12-20); Aspartate Amino Transferase 79 U/L (5-31); Blood Urea Nitrogen 11 mg/dL (9-16); Calcium 9.0 mg/dL (8.4-10.2); Carbon Dioxide 26 mmol/L (22-29); Chloride 106 mmol/L (96-108); Cholesterol 114 mg/dL (<200); Creatinine Clr Calc Pharmacy 139.2; Estimated Glomerular Filt Rate > 60; HDL Cholesterol 29 mg/dL (>40); Potassium 4.0 mmol/L (3.3-5.1); Sodium 138 mmol/L (135-145); Total Protein 7.0 g/dL (6.5-8.0)
[2024-11-26 10:14] LABS: Triglycerides 63 mg/dL (<150)
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
--- NOTE | 2024-11-26 16:00 | CA_ITS ---
Transthoracic Echocardiogram Patient (Last, First, Middle): Lulu Bradford, Gender: Female Date of : 1985 Age: 38 Procedure Date: 11/26/2024 Procedure Type: Transthoracic Echocardiogram Location: [address] Height: 175.26 cm Weight: 96.16 kg BSA: 2.12 m2 Heart Rate: bpm BP: 103 / 66 mmHg Dye Worker: SRI Referring MD: Ti Montenegro MD Symptoms: Prolonged QT, abnormal EKG Study Quality: Fair ECG Rhythm: Sinus Conclusions: - The left ventricular systolic function is normal. The visually estimated ejection fraction is between 60-65%. - No obvious valvular pathology seen on this study. Findings Procedure Information The study quality is limited by the patients inability to tolerate the test. The patient declines contrast. Left Ventricle Normal left ventricular cavity size. There is normal left ventricular wall thickness. The left ventricular systolic function is normal. The visually estimated ejection fraction is between 60-65%. There is no evidence of regional wall motion abnormalities. Diastolic function is normal for age. Right Ventricle Mildly increased right ventricular cavity size. There is normal right ventricular systolic function. Atria Both atria are normal in size. Aortic Valve There is a normal trileaflet aortic valve. There is no aortic valve stenosis. There is trace (trivial) aortic valve regurgitation. Mitral Valve The mitral valve appears normal. There is no mitral valve regurgitation. There is no mitral valve stenosis. Pulmonic Valve There is trace pulmonic valve regurgitation. Tricuspid Valve There is trace tricuspid valve regurgitation. There is no evidence of pulmonary hypertension. Great Vessels The asc aorta and aortic arch are normal in size. Venous The inferior vena cava is normal in size and collapses greater than 50% with inspiration. Pericardium/Pleural There is no evidence of pericardial effusion. Prior Study Comparison No prior study available for comparison. Recommendations, Care & Conclusions No obvious valvular pathology seen on this study. Measurements 2D Linear Measurements IVSd: 0.80 0.6-0.9/0.6-1.0 cm LVIDd: 4.43 3.9-5.3/4.2-5.9 cm LVIDd Index: 2.09 2.4-3.2/2.2-3.1 cm/m2 LVIDs: 2.82 2.0-3.6 cm LVPWd: 0.96 0.7-1.1 cm LA Diam: 3.60 2.7-3.8/3.0-4.0 cm LAIDs Index: 1.70 1.5-2.3 cm/m2 LV Mass: 155.41 67-162/88-224 g LV Mass Index: 73.31 43-95/49-115 g/m2 LVOT Diam: 2.00 3.0+(-)1.3 cm Mitral Valve MV Pk E: 1.09 MV PK A: 0.84 MV Decel Time: 246.00 E/A: 1.30 E'Lateral: 11.30 E'Medial: 7.07 E/E' Med: 15.40 E/E' Lat: 9.60 PHT: 72.00 MVA PHT: 3.06 Decel Bertie: 4.43 Aortic Valve AoV Pk Noah: 1.63 AoV Mn Noah: 1.15 AoV VTI: 0.39 AoV Pk Grad: 11.00 Aov Mn Grad: 6.00 MARICEL Cont.VTI: 2.12 LVOT LVOT Pk Noah: 1.10 LVOT Mn Noah: 0.80 LVOT VTI: 0.26 LVOT Pk Grad: 5.00 LVOT Mn Grad: 3.00 LVOT Diam: 2.00 LVOT Area: 3.14 Diastolic Function MV Pk E: 1.09 MV Pk A: 0.84 E/A: 1.30 E'Medial: 7.07 E/E' Med: 15.40 E' Laterial: 11.30 E/E' Lat: 9.60 Right Ventricle TAPSE (mm): 28.90 TVS' Noah: 11.60 Tricuspid Valve TR Pk Noah: 1.95 TR Pk Grad: 15.00 RA Press: 3.00 RVSP: 18.00 Great Vessels Aorta Sinus of Valsalva: 3.09 2.0-3.[address] Ridge: 2.63 1.7-3.4 cm Ao Asc: 3.10 2.1-3.4 cm Ao Arch: 2.70 Pulmonary Veins Pulm Vein S/D 1.20 Updated in Other Vendor System with Status of Final Ti Montenegro MD electronically signed on 11/27/2024 8:33:17 AM with status of Final
[2024-11-26 20:04] VITALS: BP 96/59; PULSE 71; RESP 16; TEMP 36.2; O2SAT 96
[2024-11-26 21:18] VITALS: BP 96/59
[2024-11-27 07:00] VITALS: BMI 32.2
[2024-11-27 07:38] VITALS: BP 106/55; PULSE 65; RESP 14; TEMP 36.8; O2SAT 94
[2024-11-27] MEDS: methADONE HCl 20 MG/2 ML ORAL.CONC 150 MG PO (08:18)
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
--- NOTE | 2024-11-27 09:00 | ECG_ITS ---
Test Reason : qtc check Blood Pressure : */* mmHG Vent. Rate : 76 BPM Atrial Rate : 76 BPM P-R Int : 142 ms QRS Dur : 88 ms QT Int : 470 ms P-R-T Axes : 49 14 21 degrees QTcB Int : 528 ms Normal sinus rhythm Prolonged QT Abnormal ECG When compared with ECG of 26-Nov-2024 05:58, No significant change was found Referred By: Matilde Del Real Electronically Signed By: MICHAEL KUMAR
--- NOTE | 2024-11-27 09:22 | P.PNIM_ITS ---
Subjective Subjective Date of Service: 11/27/24 Interval History: Per nursing wound to right arm worsening, now oozing foul-smelling pus from her right forearm. Areas red and warm, patient reports that it is more painful. No temperature, no fever, no tachycardia, no hypoxia. Areas tender to touch. Actively draining small amount of pus. Indurated area now has 2 open areas that are actively draining a small amount of purulent fluid. Increased swelling warmth and induration to area. Review of Systems Denies Chills, fever. Reports pain in her right forearm worsening. Physical Exam 2 Exam: Exam: Alert and oriented, angry affect Neuro: CN II-X11 intact, no deficits, visual acuity intact ENT: Hearing intact Cardiac: S1 S2 RRR, No ectopy Pulmonary: Lungs clear to auscultation, No increased WOB. Abdominal: Deferred MSK: Strength 5/5 upper and lower extremities : Deferred Extremities: No edema in lower extremities Psych: Angry affect Skin: Warm and dry, Intact. Area ro right forarm indurated, warm to touch, actively draining from two open areas. Vital Signs: Vital Signs: Last Vital Signs Temp 98.3 F 11/27/24 07:38 Pulse 65 11/27/24 07:38 Resp 14 11/27/24 07:38 BP 106/55 L 11/27/24 07:38 Pulse Ox 94 11/27/24 07:38 O2 Del Method Room Air 11/27/24 07:38 BMI result Body Mass Index 31.4 Objective Data Active Medications Acetaminophen (Acetaminophen 325 Mg Tablet) 650 mg PO Q6H PRN PRN Reason: Headache/Pain, Scale 1-10 Last Admin: 11/27/24 08:22 Dose: 650 mg Documented By: ISELA Al Hydroxide/Mg Hydroxide (Magnesium Hydrox/Alum Hydrox 30 Ml Oral.Susp) 30 ml PO Q6H PRN PRN Reason: Heartburn/Nausea Amoxicillin/Clavulanate Potassium (Amoxicillin/Potassium Clav 875 Mg Tablet) 875 mg PO Q12H JOAQUIN Aripiprazole (Aripiprazole 15 Mg Tablet) 15 mg PO DAILY [facility] Last Admin: 11/27/24 08:20 Dose: 15 mg Documented By: ISELA Clonazepam (Clonazepam 1 Mg Tablet) 1 mg PO TID PRN PRN Reason: Anxiety Last Admin: 11/27/24 08:21 Dose: 1 mg Documented By: ISELA Doxycycline Monohydrate (Doxycycline Monohydrate 100 Mg Capsule) 100 mg PO Q12H COUNTS INCLUDE 234 BEDS AT THE [facility] Stop: 11/30/24 06:01 Last Admin: 11/27/24 06:00 Dose: 100 mg Documented By: JOHANN Duloxetine HCl (Duloxetine Hcl 60 Mg Capsule.Dr) 60 mg PO DAILY COUNTS INCLUDE 234 BEDS AT THE [facility] Last Admin: 11/27/24 08:20 Dose: 60 mg Documented By: ISELA Gabapentin (Gabapentin 300 Mg Capsule) 600 mg PO TID COUNTS INCLUDE 234 BEDS AT THE [facility] Last Admin: 11/27/24 08:20 Dose: 600 mg Documented By: ISELA Ibuprofen (Ibuprofen 600 Mg Tablet) 600 mg PO Q8H PRN PRN Reason: Pain, Moderate(Pain Scale 4-6) Last Admin: 11/27/24 01:34 Dose: 600 mg Documented By: HUE Magnesium Hydroxide (Milk Of Magnesia 30 Ml Oral.Susp) 30 ml PO DAILY PRN PRN Reason: Constipation Magnesium Oxide (Magnesium Oxide 400 Mg Tablet) 400 mg PO DAILY COUNTS INCLUDE 234 BEDS AT THE [facility] Last Admin: 11/27/24 08:20 Dose: 400 mg Documented By: ISELA Methadone HCl (Methadone Hcl 20 Mg/2 Ml Oral.Conc) 150 mg PO DAILY@0800 COUNTS INCLUDE 234 BEDS AT THE [facility] Last Admin: 11/27/24 08:18 Dose: 150 mg Documented By: ISELA Co-signed By: WOOD Nicotine Polacrilex (Nicotine Polacrilex 2 Mg Gum) 4 mg BUCCAL Q2H PRN PRN Reason: Nicotine Cravings Prazosin HCl (Prazosin Hcl 1 Mg Capsule) 2 mg PO BEDTIME COUNTS INCLUDE 234 BEDS AT THE [facility]; Protocol Last Admin: 11/26/24 21:18 Dose: 2 mg Documented By: JOHANN Zolpidem Tartrate (Zolpidem Tartrate 5 Mg Tablet) 10 mg PO BEDTIME PRN PRN Reason: Insomnia Last Admin: 11/26/24 21:19 Dose: 10 mg Documented By: JOHANN Labs 11/23/24 12:56 11/26/24 09:17 Labs: Laboratory Results - last 24 hr 11/26/24 11/26/24 11/26/24 09:17 09:17 09:17 Anion Gap 10 L 10 L Estim Creat Clear Calc 139.2 135.3 Estimated GFR > 60 Random Glucose Estimat Average Glucose Hemoglobin A1c % Calcium Magnesium Total Bilirubin AST ALT Alkaline Phosphatase Total Protein Albumin Triglycerides Cholesterol LDL Cholesterol, Calc HDL Cholesterol 11/26/24 11/26/24 11/26/24 09:17 09:17 09:17 Anion Gap Estim Creat Clear Calc Estimated GFR > 60 Random Glucose 104 103 Estimat Average Glucose 100 Hemoglobin A1c % 5.1 Calcium 9.0 9.0 Magnesium 1.6 Total Bilirubin 0.7 AST ALT Alkaline Phosphatase Total Protein Albumin Triglycerides Cholesterol LDL Cholesterol, Calc HDL Cholesterol 11/26/24 11/26/24 11/26/24 09:17 09:17 09:17 Anion Gap Estim Creat Clear Calc Estimated GFR Random Glucose Estimat Average Glucose Hemoglobin A1c % Calcium Magnesium Total Bilirubin 0.7 AST 79 H 76 H ALT 98 H 99 H Alkaline Phosphatase 83 Total Protein Albumin Triglycerides Cholesterol LDL Cholesterol, Calc HDL Cholesterol 11/26/24 11/26/24 11/26/24 09:17 09:17 09:17 Anion Gap Estim Creat Clear Calc Estimated GFR Random Glucose Estimat Average Glucose Hemoglobin A1c % Calcium Magnesium Total Bilirubin AST ALT Alkaline Phosphatase 85 Total Protein 7.0 7.1 Albumin 3.8 3.8 Triglycerides 63 Cholesterol 114 LDL Cholesterol, Calc 73 HDL Cholesterol 29 L Assessment and Plan (1) Abscess of right forearm: Status: Acute (2) Prolonged QT interval: Status: Acute Plan 38-year-old female with a past medical history of polysubstance use, methadone maintenance, bipolar disorder who presented to the ED with suicidal ideation and symptoms of withdrawal. She is admitted inpatient psych for mood stabilization Polysubstance use/bipolar disorder/suicidal ideation Treatment per psychiatric team Abscess right forearm Patient started on doxy has received 4 doses, we will add Augmentin to broaden coverage Surgical consult, plan is for I&D Prolonged QTC 528 this morning, patient received her methadone dose. Avoid QTC prolongation agents. Follow EKG Ideally QTC should be below 500 before methadone is resumed Consult addiction Medicine Cardiology following. Asthma Not in acute exacerbation Thank you for allowing me to participate in the care of this patient. Will follow as needed, please notify medical provider with any changes in condition or concerns. Quality Stroke Does the patient have a stroke diagnosis?: No VTE Prior VTE?: No VTE Risk Level:: Medical - low VTE Device Contraindication: Treatment Not Indicated VTE Drug Contraindication: N/A - Med Ordered
--- NOTE | 2024-11-27 10:56 | PM.CNGS ---
History of Present Illness Consult details Consult date: 11/27/24 <Jack Cason PA-C - Last Filed: 11/28/24 08:11> Reason for consult: other (right forearm abscess) <Jack Cason PA-C - Last Filed: 11/28/24 08:11> Narrative: 62-year-old female with a history of asthma, PTSD, bipolar 1, polysubstance abuse admitted to [facility] for acute opiate withdrawal, suicidal ideation seen in consult for right forearm abscess. Reports the arm has become swollen, red and very painful. Has also began passively draining small amounts of purulent fluid. <Jack Cason PA-C - Last Filed: 11/28/24 08:11> 38-year-old female with a history of asthma, PTSD, bipolar 1, polysubstance abuse admitted to [facility] for acute opiate withdrawal, suicidal ideation seen in consult for right forearm abscess. Reports the arm has become swollen, red and very painful. Initially started three days prior. She did admit to injecting drugs there. She was started on doxycycline and Augmentin was added today. She also began draining small amounts of purulent fluid from the area. She denies fever, chills, nausea, vomiting. She is eating ok. <Marlin Sandra PA-C - Last Filed: 11/27/24 15:05> Review of Systems Review of Systems: Yes all other systems are reviewed and are negative <Marlin Sandra PA-C - Last Filed: 11/27/24 15:05> PMFSH Past Medical History Medical History: Medical History Bipolar II disorder Opioid use disorder, moderate, in early remission, on maintenance therapy Asthma <Jack Cason PA-C - Last Filed: 11/28/24 08:11> Social History Social History: Social History Household Members: Unknown / Unable to assess Housing: Other Housing Other:: Sober living home Patient Tobacco Use Status: Former Tobacco user Tobacco use type: Cigarette Cigarette Packs Per Day: 1 Cigarettes Per Day: 20.0 Years Smoked: 20 years e-Cigarette/Vaping Use: Never Used Second Hand Smoke Exposure: No Use of substances other than those prescribed or required for medical reasons: Yes Substance Use Type: Heroin Currently Displaying Signs/Symptoms of Drug Intoxication Withdrawal: No Advance Directives: No Advance Directives Information Provided: No Do you have thoughts of harming others: None Do you have a plan to hurt others: No Plan Recently lost weight without trying: Unsure Nutrition Risks: No Nutritional Risk Patient : No : No service: No Sexual orientation: Don't Know <Jack Cason PA-C - Last Filed: 11/28/24 08:11> Meds Allergies/Adverse reactions: Allergies Allergy/AdvReac Type Severity Reaction Status Date / Time mayonnaise (MAYONNAISE) Allergy Unknown RASH Verified 11/23/24 10:02 seafood Allergy Unknown Rash Verified 11/23/24 10:02 <Jack Cason PA-C - Last Filed: 11/28/24 08:11> Active Medications: Current Medications Acetaminophen (Acetaminophen 325 Mg Tablet) 650 mg PO Q6H PRN PRN Reason: Headache/Pain, Scale 1-10 Last Admin: 11/27/24 08:22 Dose: 650 mg Al Hydroxide/Mg Hydroxide (Magnesium Hydrox/Alum Hydrox 30 Ml Oral.Susp) 30 ml PO Q6H PRN PRN Reason: Heartburn/Nausea Amoxicillin/Clavulanate Potassium (Amoxicillin/Potassium Clav 875 Mg Tablet) 875 mg PO Q12H [facility] Last Admin: 11/27/24 10:20 Dose: 875 mg Aripiprazole (Aripiprazole 15 Mg Tablet) 15 mg PO DAILY [facility] Last Admin: 11/27/24 08:20 Dose: 15 mg Clonazepam (Clonazepam 1 Mg Tablet) 1 mg PO TID PRN PRN Reason: Anxiety Last Admin: 11/27/24 08:21 Dose: 1 mg Doxycycline Monohydrate (Doxycycline Monohydrate 100 Mg Capsule) 100 mg PO Q12H [facility] Stop: 11/30/24 06:01 Last Admin: 11/27/24 06:00 Dose: 100 mg Duloxetine HCl (Duloxetine Hcl 60 Mg Capsule.Dr) 60 mg PO DAILY [facility] Last Admin: 11/27/24 08:20 Dose: 60 mg Gabapentin (Gabapentin 300 Mg Capsule) 600 mg PO TID [facility] Last Admin: 11/27/24 08:20 Dose: 600 mg Ibuprofen (Ibuprofen 600 Mg Tablet) 600 mg PO Q8H PRN PRN Reason: Pain, Moderate(Pain Scale 4-6) Last Admin: 11/27/24 01:34 Dose: 600 mg Magnesium Hydroxide (Milk Of Magnesia 30 Ml Oral.Susp) 30 ml PO DAILY PRN PRN Reason: Constipation Magnesium Oxide (Magnesium Oxide 400 Mg Tablet) 400 mg PO DAILY [facility] Last Admin: 11/27/24 08:20 Dose: 400 mg Methadone HCl (Methadone Hcl 20 Mg/2 Ml Oral.Conc) 150 mg PO DAILY@0800 [facility] Last Admin: 11/27/24 08:18 Dose: 150 mg Nicotine Polacrilex (Nicotine Polacrilex 2 Mg Gum) 4 mg BUCCAL Q2H PRN PRN Reason: Nicotine Cravings Prazosin HCl (Prazosin Hcl 1 Mg Capsule) 2 mg PO BEDTIME [facility]; Protocol Last Admin: 11/26/24 21:18 Dose: 2 mg Zolpidem Tartrate (Zolpidem Tartrate 5 Mg Tablet) 10 mg PO BEDTIME PRN PRN Reason: Insomnia Last Admin: 11/26/24 21:19 Dose: 10 mg <Jack Cason PA-C - Last Filed: 11/28/24 08:11> Home medications: Home Medications ?Medication ?Instructions ?Recorded ?Confirmed ?Last Taken ?Type methadone 10 mg/mL oral 150 mg PO DAILY 02/29/24 11/23/24 11/21/24 History concentrate (Methadose) clonazepam 1 mg tablet 1 mg PO TID PRN Anxiety 11/23/24 11/23/24 11/20/24 History duloxetine 60 mg capsule,delayed 60 mg PO DAILY 11/23/24 11/23/24 11/20/24 History release gabapentin 400 mg capsule 600 mg PO TID 11/23/24 11/23/24 11/20/24 History prazosin 1 mg capsule 2 mg PO BEDTIME 11/23/24 11/23/24 11/20/24 History zolpidem 10 mg tablet 10 mg PO BEDTIME PRN Insomnia 11/23/24 11/23/24 11/20/24 History Juan Manuel Cason PA-C - Last Filed: 11/28/24 08:11> Physical Exam Vital Signs: Vital Signs: Last Vital Signs Temp 98.3 F 11/27/24 07:38 Pulse 65 11/27/24 07:38 Resp 14 11/27/24 07:38 BP 106/55 L 11/27/24 07:38 Pulse Ox 94 11/27/24 07:38 O2 Del Method Room Air 11/27/24 07:38 BMI result Body Mass Index 32.2 <JORDY Arana Last Filed: 11/28/24 08:11> Const: General: cooperative, comfortable, no acute distress and alert <JORDY Best Last Filed: 11/27/24 15:05> Orientation/consciousness: patient oriented x3 <JORDY Best Last Filed: 11/27/24 15:05> Resp: Effort & Inspection: normal respiratory effort <JORDY Best Last Filed: 11/27/24 15:05> Cardio: Rate: regular rate <JORDY Best Last Filed: 11/27/24 15:05> Skin: Other: right forearm with two small superficial open wounds just distal to olecranon process posteriorly with moderate amount of underlying fluctuance and surrounding erythema and edema, very tender to palpation, wounds with purulent, foul smelling drainage <JORDY Arana Last Filed: 11/28/24 08:11> Other: right forearm with two small superficial open wounds just distal to olecranon process posteriorly with moderate amount of underlying fluctuance and surrounding erythema and edema, very tender to palpation, wounds with purulent, foul smelling drainage <JORDY Best Last Filed: 11/27/24 15:05> Neuro: General: patient oriented x3 and moves all extremities <JORDY Best Last Filed: 11/27/24 15:05> Results Labs Result diagrams: 11/23/24 12:56 11/26/24 09:17 <JORDY Arana Last Filed: 11/28/24 08:11> Labs: Urine 11/24/24 Range/Units 12:58 Urine Color Dark Yellow Urine Appearance Cloudy Urine pH 6.0 (5.0-9.0) Ur Specific [place] >= 1.030 H (1.005-1.025) Urine Protein 30 (1+) H (Neg-Trace) mg/dL Urine Glucose (UA) Negative (Negative) mg/dL Urine Test NEGATIVE (NEGATIVE) All other labs normal. <Jack Cason PA-C - Last Filed: 11/28/24 08:11> Assessment and Plan (1) Abscess of right forearm: Status: Acute <JORDY Arana Last Filed: 11/28/24 08:11> 38-year-old female with a history of asthma, PTSD, bipolar 1, polysubstance abuse admitted to [facility] for acute opiate withdrawal, suicidal ideation found to have cellulitis and abscess of right posterior forearm. She is on augmentin and doxycyline. She does have purulent drainage from the two open wounds present however there is a moderate underlying fluctuance and would benefit from I&D of the abscess. She is in agreement. This was done in the procedure room with LLOYD Bonilla present. Please see procedure note below. Wound culture was obtained, follow up results. Will return tomorrow for wound check, possible packing removal. Cont abx. <Marlin Sandra PA-C - Last Filed: 11/27/24 15:05> Procedures Date of Service Date of Service: 11/28/24 <Jack Cason PA-C - Last Filed: 11/28/24 08:11> 11/27/24 <Marlin Sandra PA-C - Last Filed: 11/27/24 15:05> Abscess I/D Consent for Procedure: Elective - informed consent obtained <JORDY Best Last Filed: 11/27/24 15:05> Site: upper extremity <JORDY Best Last Filed: 11/27/24 15:05> Side (if applicable): right <JORDY Best Last Filed: 11/27/24 15:05> Anesthetic used: lidocaine 1% <JORDY Best Last Filed: 11/27/24 15:05> Technique: incised with #11 blade <JORDY Best Last Filed: 11/27/24 15:05> Amount of fluid (mL): 30 <JORDY Best Last Filed: 11/27/24 15:05> Packing used?: iodoform <Marlin Sandra PA-C - Last Filed: 11/27/24 15:05> Additional comments: Patient was placed in supine position. The site of procedure was confirmed by the patient. After assuring informed consent, the skin was prepped with betadine. 5cc 1% lidocaine was then infiltrated over the central portion of the fluctuance. An incision was made with an 11 blade measuring approximately 2 cm the same location. This was deepened into the subcutaneous tissue. A pocket was identified and a large amount of purulent fluid was evacuated. A culture was obtained. The area was then probed with a snap to ensure any loculations were broken up and the entire collection was drained. No further fluctuance was appreciated. Pressure was held with sterile gauze until hemostasis ensured. The I&D site was then packed with 1/4in iodoform packing and dressed with fluffs and short elena wrap (this was discussed with measurement psychologist who said this was ok). The patient tolerated the procedure well. <Marlin Sandra PA-C - Last Filed: 11/27/24 15:05>
--- NOTE | 2024-11-27 14:08 | PM.EVENT ---
Event Note Date of Service: 11/27/24 Event Note: Addiction consult placed for patient secondary to QTc prolongation and methadone dose inquiry Chart reviewed and case discussed with attending psychiatric provider EKG at admission showed QTc 573, then 550. Patient given half dose of methadone (11/24) until recheck EKG Yesterday, 11/24, QTc 511 and electrolytes WNL, Mg 1.6. Discussed with Hospitalist who ordered PO Magnesium--and remainder of methadone dose EKG this AM, shows QTc 524. Patient reportedly quite upset at any discussion related to adjusting dose. Cardiology note reviewed, patient denied any history of cardiac issues. Plan: -recheck lytes/Mg in AM -recheck EKG prior to AM dose. --she received full dose today (150mg) -AM dose 100mg. remainder of dose dependant on ekg Time Spent With Patient Time: Total time managing care of this patient today ____ minutes.
[2024-11-27] MEDS: Lidocaine HCl 1 % 20 ML VIAL 10 ML INFILTRATI (14:20)
[2024-11-27] MEDS: oxyCODONE HCl Immed Release 5 MG TABLET PO (14:57)
[2024-11-27 19:23] VITALS: BP 97/58; PULSE 74; RESP 16; TEMP 37.1; O2SAT 97
--- NOTE | 2024-11-28 06:00 | ECG_ITS ---
Test Reason : ck rhythm ck qt Blood Pressure : */* mmHG Vent. Rate : 68 BPM Atrial Rate : 68 BPM P-R Int : 144 ms QRS Dur : 92 ms QT Int : 518 ms P-R-T Axes : 44 10 21 degrees QTcB Int : 550 ms Normal sinus rhythm Prolonged QT Abnormal ECG When compared with ECG of 27-Nov-2024 08:42, No significant change was found Referred By: Matilde Del Real Electronically Signed By: MICHAEL KUMAR
[2024-11-28 07:15] VITALS: BP 95/53; PULSE 59; RESP 14; TEMP 36.7; O2SAT 96
--- NOTE | 2024-11-28 08:18 | HO.PM.IMPN ---
Subjective Subjective Date of Service: 11/28/24 Interval History: Follow up abscess right forearm and prolonged QTc. On exam her pain is improved the right arm, positive CMS, less warm. Patient underwent an I and D to the right forearm. Area was packed. She continues on doxycycline and Augmentin. Surgery is following. Patient with a EKG this morning with a QTC of 580. She is being followed by Cardiology as well as addiction Medicine. Her methadone dosing was decreased to 100 mg daily. She denies any shortness of breath, dizziness, headaches, fever or chills. Review of Systems Denies any shortness of breath, chest pain, abdominal pain or discomfort, nausea, vomiting or diarrhea. Physical Exam Exam: Exam: Alert and oriented, angry affect, out in milieu. Neuro: CN II-X11 intact, no deficits, visual acuity intact ENT: Hearing intact Cardiac: S1 S2 RRR, No ectopy Pulmonary: Lungs clear to auscultation, No increased WOB. Abdominal: Deferred MSK: Strength 5/5 upper and lower extremities : Deferred Extremities: No edema in lower extremities Psych: Angry affect Skin: Warm and dry, Intact. Area to right forearm covered in dressing, unable to visualize. + swelling, less warm to touch, less painful. Vital Signs: Vital Signs: Last Vital Signs Temp 98.0 F 11/28/24 07:15 Pulse 59 11/28/24 07:15 Resp 14 11/28/24 07:15 BP 95/53 L 11/28/24 07:15 Pulse Ox 96 11/28/24 07:15 O2 Del Method Room Air 11/28/24 07:15 BMI result Body Mass Index 32.2 Objective Data Active Medications Acetaminophen (Acetaminophen 325 Mg Tablet) 650 mg PO Q6H PRN PRN Reason: Headache/Pain, Scale 1-10 Last Admin: 11/27/24 08:22 Dose: 650 mg Documented By: ISELA Al Hydroxide/Mg Hydroxide (Magnesium Hydrox/Alum Hydrox 30 Ml Oral.Susp) 30 ml PO Q6H PRN PRN Reason: Heartburn/Nausea Amoxicillin/Clavulanate Potassium (Amoxicillin/Potassium Clav 875 Mg Tablet) 875 mg PO Q12H [facility]CLUDES [facility] Last Admin: 11/27/24 20:06 Dose: 875 mg Documented By: NILAY Aripiprazole (Aripiprazole 15 Mg Tablet) 15 mg PO DAILY [facility]CLUDES [facility] Last Admin: 11/27/24 08:20 Dose: 15 mg Documented By: ISELA Clonazepam (Clonazepam 1 Mg Tablet) 1 mg PO TID PRN PRN Reason: Anxiety Last Admin: 11/27/24 20:06 Dose: 1 mg Documented By: NILAY Doxycycline Monohydrate (Doxycycline Monohydrate 100 Mg Capsule) 100 mg PO Q12H [facility]CLUDES [facility] Stop: 11/30/24 06:01 Last Admin: 11/28/24 06:37 Dose: 100 mg Documented By: NILAY Duloxetine HCl (Duloxetine Hcl 60 Mg Capsule.Dr) 60 mg PO DAILY [facility]CLUDES [facility] Last Admin: 11/27/24 08:20 Dose: 60 mg Documented By: ISELA Gabapentin (Gabapentin 300 Mg Capsule) 600 mg PO TID COUNT INCLUDES THE [facility] Last Admin: 11/27/24 20:06 Dose: 600 mg Documented By: NILAY Ibuprofen (Ibuprofen 600 Mg Tablet) 600 mg PO Q8H PRN PRN Reason: Pain, Moderate(Pain Scale 4-6) Last Admin: 11/27/24 20:06 Dose: 600 mg Documented By: NILAY Magnesium Hydroxide (Milk Of Magnesia 30 Ml Oral.Susp) 30 ml PO DAILY PRN PRN Reason: Constipation Magnesium Oxide (Magnesium Oxide 400 Mg Tablet) 400 mg PO DAILY [facility]CLUDES [facility] Last Admin: 11/27/24 08:20 Dose: 400 mg Documented By: ISELA Methadone HCl (Methadone Hcl 20 Mg/2 Ml Oral.Conc) 100 mg PO DAILY@0800 COUNT INCLUDES THE [facility] Nicotine Polacrilex (Nicotine Polacrilex 2 Mg Gum) 4 mg BUCCAL Q2H PRN PRN Reason: Nicotine Cravings Prazosin HCl (Prazosin Hcl 1 Mg Capsule) 2 mg PO BEDTIME COUNT INCLUDES THE [facility]; Protocol Last Admin: 11/27/24 20:06 Dose: 2 mg Documented By: NILAY Zolpidem Tartrate (Zolpidem Tartrate 5 Mg Tablet) 10 mg PO BEDTIME PRN PRN Reason: Insomnia Last Admin: 11/27/24 20:06 Dose: 10 mg Documented By: NILAY Labs 11/28/24 09:20 11/28/24 09:20 Assessment and Plan (1) Abscess of right forearm: Status: Acute (2) Prolonged QT interval: Status: Acute Plan 38-year-old female with a past medical history of polysubstance use, methadone maintenance, bipolar disorder who presented to the ED with suicidal ideation and symptoms of withdrawal. She is admitted inpatient psych for mood stabilization Polysubstance use/bipolar disorder/suicidal ideation Treatment per psychiatric team Abscess right forearm Continue Doxy and augmentin S/P I& D 11/27/2024 General surgery following Culture pending Prolonged QTC 580 this morning. Ideally QTC should be below 500 before methadone is resumed per cardiology Addiction Medicine and Cardiology following Plan is to dose methadone at 50 mg twice daily and oxycodone as needed Follow EKGs Asthma Not in acute exacerbation Thank you for allowing me to participate in the care of this patient. Will follow as needed, please notify medical provider with any changes in condition or concerns. Quality Stroke Does the patient have a stroke diagnosis?: No VTE Prior VTE?: No VTE Risk Level:: Medical - low VTE Device Contraindication: Treatment Not Indicated VTE Drug Contraindication: N/A - Med Ordered
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
--- NOTE | 2024-11-28 09:22 | PM.PNGS ---
Subjective Subjective Date of Service: 11/28/24 Interval history: Underwent bedside I&D yesterday of right forearm abscess. She reports less pain today. Physical Exam Vital Signs: Vital Signs: Last Vital Signs Temp 98.0 F 11/28/24 07:15 Pulse 59 11/28/24 07:15 Resp 14 11/28/24 07:15 BP 95/53 L 11/28/24 07:15 Pulse Ox 96 11/28/24 07:15 O2 Del Method Room Air 11/28/24 07:15 BMI result Body Mass Index 32.2 Const: General: comfortable, no acute distress and alert Orientation/consciousness: patient oriented x3 Resp: Effort & Inspection: normal respiratory effort Neuro: General: patient oriented x3 and moves all extremities Extrem: Other: right forearm- packing removed, overall decreased erythema and edema without further fluctuance appreciated, area remains tender to palpation, some desquamation of surrounding epidermis Objective Data Active Medications Acetaminophen (Acetaminophen 325 Mg Tablet) 650 mg PO Q6H PRN PRN Reason: Headache/Pain, Scale 1-10 Last Admin: 11/27/24 08:22 Dose: 650 mg Documented By: ISELA Al Hydroxide/Mg Hydroxide (Magnesium Hydrox/Alum Hydrox 30 Ml Oral.Susp) 30 ml PO Q6H PRN PRN Reason: Heartburn/Nausea Amoxicillin/Clavulanate Potassium (Amoxicillin/Potassium Clav 875 Mg Tablet) 875 mg PO Q12H [facility] Last Admin: 11/28/24 08:55 Dose: 875 mg Documented By: ISELA Aripiprazole (Aripiprazole 15 Mg Tablet) 15 mg PO DAILY [facility] Last Admin: 11/28/24 08:55 Dose: 15 mg Documented By: ISELA Clonazepam (Clonazepam 1 Mg Tablet) 1 mg PO TID PRN PRN Reason: Anxiety Last Admin: 11/28/24 08:55 Dose: 1 mg Documented By: ISELA Doxycycline Monohydrate (Doxycycline Monohydrate 100 Mg Capsule) 100 mg PO Q12H [facility] Stop: 11/30/24 06:01 Last Admin: 11/28/24 06:37 Dose: 100 mg Documented By: NILAY Duloxetine HCl (Duloxetine Hcl 60 Mg Capsule.) 60 mg PO DAILY [facility] Last Admin: 11/28/24 08:55 Dose: 60 mg Documented By: ISELA Gabapentin (Gabapentin 300 Mg Capsule) 600 mg PO TID [facility] Last Admin: 11/28/24 08:55 Dose: 600 mg Documented By: ISELA Ibuprofen (Ibuprofen 600 Mg Tablet) 600 mg PO Q8H PRN PRN Reason: Pain, Moderate(Pain Scale 4-6) Last Admin: 11/28/24 08:56 Dose: 600 mg Documented By: ISELA Magnesium Hydroxide (Milk Of Magnesia 30 Ml Oral.Susp) 30 ml PO DAILY PRN PRN Reason: Constipation Magnesium Oxide (Magnesium Oxide 400 Mg Tablet) 400 mg PO DAILY [facility] Last Admin: 11/28/24 08:55 Dose: 400 mg Documented By: ISELA Methadone HCl (Methadone Hcl 20 Mg/2 Ml Oral.Conc) 100 mg PO DAILY@0800 [facility] Nicotine Polacrilex (Nicotine Polacrilex 2 Mg Gum) 4 mg BUCCAL Q2H PRN PRN Reason: Nicotine Cravings Prazosin HCl (Prazosin Hcl 1 Mg Capsule) 2 mg PO BEDTIME [facility]; Protocol Last Admin: 11/27/24 20:06 Dose: 2 mg Documented By: NILAY Zolpidem Tartrate (Zolpidem Tartrate 5 Mg Tablet) 10 mg PO BEDTIME PRN PRN Reason: Insomnia Last Admin: 11/27/24 20:06 Dose: 10 mg Documented By: NILAY Labs 11/28/24 09:20 11/28/24 09:20 Procedures Date of Service Date of Service: 11/28/24 Progress Note: A&P Assessment and plan (1) Abscess of right forearm: Status: Acute Plan S/p I&D of right forearm abscess yesterday. Overall surrounding cellulitic changes are improving. No further fluctuance appreciated. Packing removed- can continue local wound care with daily and PRN dressing change with allevyn foam pad. Continue oral antibiotics, follow up abscess cultures. Time Spent With Patient Time: Total time managing care of this patient today ____ minutes. Quality Stroke Does the patient have a stroke diagnosis?: No VTE Prior VTE?: No VTE Risk Level:: Medical - low VTE Device Contraindication: Treatment Not Indicated VTE Drug Contraindication: N/A - Med Ordered
[2024-11-28 09:25] LABS: MANUAL DIFF FLAG NO
[2024-11-28 09:29] LABS: Hematocrit 37.8 % (37.0-47.0); Hemoglobin 12.6 g/dl (12.0-16.0); Imm Gran Abs Auto 0.03 X10*3/uL (0.00-0.03); Imm Gran Pct Auto 0.3 % (0.0-0.4); Lymphocytes Absolute Auto 3.7 X10*3/uL (1.2-4.9); Mean Corpuscular HGB Conc 33.3 g/dl (31.0-35.0); Mean Corpuscular Hemoglobin 30.1 pg (27.0-33.0); Mean Corpuscular Volume 90.4 fL (80.0-98.0); NRBC Abs Auto 0.000 X10*3/uL (0.0-0.012); NRBC Pct Auto 0.0 /100WBC (0.0-0.2); Platelet Count 295 X10*3/uL (160-400); Red Blood Count 4.18 X10*6/uL (4.20-5.50); White Blood Count 9.6 X10*3/uL (4.8-10.8)
[2024-11-28 09:40] LABS: Anion Gap 9 (12-20); Carbon Dioxide 25 mmol/L (22-29); Chloride 108 mmol/L (96-108); Magnesium 1.8 mg/dL (1.6-2.6); Potassium 4.2 mmol/L (3.3-5.1); Sodium 138 mmol/L (135-145)
[2024-11-28] MEDS: methADONE HCl 20 MG/2 ML ORAL.CONC 40 MG PO (11:00)
--- NOTE | 2024-11-28 11:36 | HO.ADDICTCON ---
History of Present Illness Date of Service: 11/28/2024 Chief Complaint: crisis Reason for Consult: prolonged QTc with methadone Sources of Information: patient interviewed and chart reviewed HPI Narrative: Patient is a 38 year old female admitted to unit with SI and recent recurrence of use. Most history obtained via chart review as patient quite upset when seen by t/w. Per Admission note, patient reported abstinence from substance use several months before recent recurrence. She is engaged in treatment for OUD, via [facility] and her current methadone dose is 150mg. At admission QTc prolonged, labs and daily EKGs since then continue to show QTc prolongation--today 550 Case discussed with cardiology and risk increased for VT with continuation of methadone . Discussed risk or withdrawal with abrupt discontinuation of methadone, agreeable to low dose methadone X1, while t/w discussed case with patient's OTP. T/w met with patient and acid filler to discuss plan. Advised patient that while clinical information was being gathered, dose would be reduced this morning but every effort would be made to ensure withdrawal sx would be managed. Attempted to explain risk with continuation of current dose. Chart review shows that this was also discussed by cardiology with patient Patient emphatically voicing her displeasure to t/w. Interview ended due to patients increased agitation and yelling. Information that was obtained from patient is that she has long standing history prolonged QT. Stated that at one time her methadone dose was 200mg and reduced due to this. Past Psychiatric History: -Hx of ECT 2-3 yrs ago -Hx of multiple psych admissions dating back to 2009, last at [facility] 03/21/2021. She was at [facility] in February or Mar this year 2024 -OP psych services at [facility], psych Provider is Theresa Oconnor ([facility] third year Resident), had first intake appointment on 04/19/21. Previous OP services at [facility]. Report currently OP provider with lia Ramos -Hx of presenting to crisis with depression, SI, med non-adherence, and relapse on substances. Hx of ODing on buspar and trazodone in 2019. -Past med trials: buspar, clonidine, lithium, seroquel, klonopin Medical Evaluation Reviewed: Yes Review of Systems Review of Systems Yes Other (deferred ) Diagnostics Vital Signs (24Hr): Vital Signs - 24 hr 11/27/24 19:23 11/28/24 07:15 Temperature 98.8 F 98.0 F Pulse Rate 74 59 Respiratory Rate 16 14 Blood Pressure 97/58 L 95/53 L Pulse Oximetry 97 96 Oxygen Delivery Method Room Air Room Air BMI result Body Mass Index 32.2 Labs 11/28/24 09:20 11/28/24 09:20 Labs: Laboratory Results - last 48 hr 11/28/24 09:20 WBC 9.6 RBC 4.18 L Hgb 12.6 Hct 37.8 MCV 90.4 MCH 30.1 MCHC 33.3 RDW 12.5 Plt Count 295 MPV 9.9 Immature Gran % (Auto) 0.3 Neut % (Auto) 46.1 Lymph % (Auto) 38.7 [place] % (Auto) 7.2 Eos % (Auto) 7.3 H Baso % (Auto) 0.4 Lymph # (Auto) 3.7 [place] # (Auto) 0.7 Eos # (Auto) 0.7 H Baso # (Auto) 0.0 Abs Immat Gran (auto) 0.03 Absolute Neuts (auto) 4.4 Absolute Nucleated RBC 0.000 Nucleated RBC % (auto) 0.0 Sodium 138 Potassium 4.2 Chloride 108 Carbon Dioxide 25 Anion Gap 9 L Magnesium 1.8 Mental Status Exam Mental Status Exam Patient Appearance: Well Grooomed Level of Consciousness: Awake and Alert Behavior Comments: irritable, agitated Affect Description: Angry Speech Pattern: Clear Judgement: Fair Medications Medications Current Medications Acetaminophen (Acetaminophen 325 Mg Tablet) 650 mg PO Q6H PRN PRN Reason: Headache/Pain, Scale 1-10 Last Admin: 11/27/24 08:22 Dose: 650 mg Al Hydroxide/Mg Hydroxide (Magnesium Hydrox/Alum Hydrox 30 Ml Oral.Susp) 30 ml PO Q6H PRN PRN Reason: Heartburn/Nausea Amoxicillin/Clavulanate Potassium (Amoxicillin/Potassium Clav 875 Mg Tablet) 875 mg PO Q12H [facility] Last Admin: 11/28/24 08:55 Dose: 875 mg Aripiprazole (Aripiprazole 15 Mg Tablet) 15 mg PO DAILY [facility] Last Admin: 11/28/24 08:55 Dose: 15 mg Clonazepam (Clonazepam 1 Mg Tablet) 1 mg PO TID PRN PRN Reason: Anxiety Last Admin: 11/28/24 08:55 Dose: 1 mg Doxycycline Monohydrate (Doxycycline Monohydrate 100 Mg Capsule) 100 mg PO Q12H [facility] Stop: 11/30/24 06:01 Last Admin: 11/28/24 06:37 Dose: 100 mg Duloxetine HCl (Duloxetine Hcl 60 Mg Capsule.Dr) 60 mg PO DAILY [facility] Last Admin: 11/28/24 08:55 Dose: 60 mg Gabapentin (Gabapentin 300 Mg Capsule) 600 mg PO TID [facility] Last Admin: 11/28/24 08:55 Dose: 600 mg Ibuprofen (Ibuprofen 600 Mg Tablet) 600 mg PO Q8H PRN PRN Reason: Pain, Moderate(Pain Scale 4-6) Last Admin: 11/28/24 08:56 Dose: 600 mg Magnesium Hydroxide (Milk Of Magnesia 30 Ml Oral.Susp) 30 ml PO DAILY PRN PRN Reason: Constipation Magnesium Oxide (Magnesium Oxide 400 Mg Tablet) 400 mg PO DAILY [facility] Last Admin: 11/28/24 08:55 Dose: 400 mg Nicotine Polacrilex (Nicotine Polacrilex 2 Mg Gum) 4 mg BUCCAL Q2H PRN PRN Reason: Nicotine Cravings Prazosin HCl (Prazosin Hcl 1 Mg Capsule) 2 mg PO BEDTIME [facility]; Protocol Last Admin: 11/27/24 20:06 Dose: 2 mg Zolpidem Tartrate (Zolpidem Tartrate 5 Mg Tablet) 10 mg PO BEDTIME PRN PRN Reason: Insomnia Last Admin: 11/27/24 20:06 Dose: 10 mg Allergies Allergies Allergy/AdvReac Type Severity Reaction Status Date / Time mayonnaise (MAYONNAISE) Allergy Unknown RASH Verified 11/23/24 10:02 seafood Allergy Unknown Rash Verified 11/23/24 10:02 Assessment & Plan Assessment & Plan (1) Opioid use disorder: Status: Acute Code(s): F11.90 - Opioid use, unspecified, uncomplicated Assessment and Plan: due to ongoing QTc prolongation, methadone dose will be reduced to 100mg QD, but administered as 50mg BID. Abrupt discontinuation of methadone will result in significant withdrawal sx and likely further psychiatric decompensation oxycodone 10mg q6H PRN to manage any withdrawal sx that may present due to dose reduction --dose of oxycodone can be adjusted if necessary follow up ekg Sunday, 11/30 at the time of this note, pending call back from patient's OTP ([facility]) (2) Prolonged QT interval: Status: Acute Code(s): R94.31 - Abnormal electrocardiogram [ECG] [EKG] Assessment and Plan: plan as per above and discussed with Cardiology Total time managing care of this patient today _75___ minutes. [facility] Past Medical History Medical History Bipolar II disorder Opioid use disorder, moderate, in early remission, on maintenance therapy Asthma Social History Social History Household Members: Unknown / Unable to assess Housing: Other Housing Other:: Sober living home Patient Tobacco Use Status: Former Tobacco user Tobacco use type: Cigarette Cigarette Packs Per Day: 1 Cigarettes Per Day: 20.0 Years Smoked: 20 years e-Cigarette/Vaping Use: Never Used Second Hand Smoke Exposure: No Use of substances other than those prescribed or required for medical reasons: Yes Substance Use Type: Heroin Currently Displaying Signs/Symptoms of Drug Intoxication Withdrawal: No Advance Directives: No Advance Directives Information Provided: No Do you have thoughts of harming others: None Do you have a plan to hurt others: No Plan Recently lost weight without trying: Unsure Nutrition Risks: No Nutritional Risk Patient : No : No service: No Sexual orientation: Don't Know
[2024-11-28] MEDS: methADONE HCl 20 MG/2 ML ORAL.CONC 10 MG PO (13:25)
[2024-11-28 20:00] VITALS: BP 106/63; PULSE 65; RESP 18; TEMP 36.7; O2SAT 96
[2024-11-28 21:05] VITALS: BP 106/63
[2024-11-28] MEDS: methADONE HCl 20 MG/2 ML ORAL.CONC 50 MG PO (21:06)
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
[2024-11-29 07:38] VITALS: BP 100/57; PULSE 65; RESP 20; TEMP 36.6; O2SAT 98
[2024-11-29] MEDS: methADONE HCl 20 MG/2 ML ORAL.CONC 50 MG PO ×2 (07:55→20:08)
[2024-11-29 20:00] VITALS: BP 105/68; PULSE 72; RESP 16; TEMP 36.6; O2SAT 96
[2024-11-29 20:10] VITALS: BP 105/68
[2024-11-30 07:55] VITALS: BP 95/51; PULSE 62; RESP 16; TEMP 36.5; O2SAT 98
[2024-11-30] MEDS: methADONE HCl 20 MG/2 ML ORAL.CONC 50 MG PO ×2 (08:09→20:10)
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
--- NOTE | 2024-11-30 14:36 | PC.NURSE ---
Pt refused EKG, provider aware.
[2024-11-30] MEDS: oxyCODONE HCl Immed Release 5 MG TABLET 10 MG PO ×2 (14:41→20:46)
[2024-11-30 20:12] VITALS: BP 101/63; PULSE 77; RESP 17; TEMP 36.8; O2SAT 97
[2024-12-01 07:05] VITALS: BP 136/71; PULSE 69; RESP 18; TEMP 36.2; O2SAT 98
[2024-12-01] MEDS: methADONE HCl 20 MG/2 ML ORAL.CONC 50 MG PO ×2 (07:57→13:48)
[2024-12-01] MEDS: oxyCODONE HCl Immed Release 5 MG TABLET 10 MG PO ×3 (08:01→20:01)
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
--- NOTE | 2024-12-01 10:52 | PC.NURSE ---
Patient refused EKG to be completed this morning. Hospitalist Matilde Del Real, Provider Acacia Francis and Jeri Young from [facility] were all notified via tiger text.
--- NOTE | 2024-12-01 11:23 | P.PNIM_ITS ---
Subjective Subjective Date of Service: 12/01/24 Interval History: Patient was seen in follow up right forearm abscess, her improving, less painful and decreased cellulitis to surrounding wound. Small amount of drainage on old dressing. Denies any fever or chills. Improved range of motion. Antibiotic changed to Ceftin. Patient refused EKG on Sunday as well as refused an EKG ordered this morning. Updated addiction Medicine for follow up. She denies any shortness of breath or chest pain, reports that she has a bed coming up for Sunday. utility worker film processing made aware. Review of Systems Denies any shortness of breath, chest pain, palpitations, dizziness, lightheadedness, headaches, dysuria, abdominal pain or discomfort, nausea, vomiting or diarrhea. Denies fever or chills. Physical Exam 2 Exam: Exam: Alert and oriented, calmer out in milieu. Neuro: CN II-X11 intact, no deficits, visual acuity intact ENT: Hearing intact Cardiac: S1 S2 RRR, No ectopy Pulmonary: Lungs clear to auscultation, No increased WOB. Abdominal: Deferred MSK: Strength 5/5 upper and lower extremities : Deferred Extremities: No edema in lower extremities Psych: Angry affect Skin: Warm and dry, Intact. Area to right forearm with open area. Scant amount of drainage. Surrounding area with minimal redness and swelling. Decreased pain and increased ROM Vital Signs: Vital Signs: Last Vital Signs Temp 97.1 F 12/01/24 07:05 Pulse 69 12/01/24 07:05 Resp 18 12/01/24 07:05 BP 136/71 12/01/24 07:05 Pulse Ox 98 12/01/24 07:05 O2 Del Method Room Air 12/01/24 07:05 BMI result Body Mass Index 32.2 Objective Data Active Medications Acetaminophen (Acetaminophen 325 Mg Tablet) 650 mg PO Q6H PRN PRN Reason: Headache/Pain, Scale 1-10 Last Admin: 11/27/24 08:22 Dose: 650 mg Documented By: ISELA Al Hydroxide/Mg Hydroxide (Magnesium Hydrox/Alum Hydrox 30 Ml Oral.Susp) 30 ml PO Q6H PRN PRN Reason: Heartburn/Nausea Aripiprazole (Aripiprazole 15 Mg Tablet) 15 mg PO DAILY JOAQUIN Last Admin: 12/01/24 08:03 Dose: 15 mg Documented By: ENRICO Cefuroxime Axetil (Cefuroxime Axetil 500 Mg Tablet) 500 mg PO BID [facility] Stop: 12/05/24 21:01 Last Admin: 12/01/24 08:03 Dose: 500 mg Documented By: ENRICO Clonazepam (Clonazepam 1 Mg Tablet) 1 mg PO TID PRN PRN Reason: Anxiety Last Admin: 12/01/24 08:04 Dose: 1 mg Documented By: ENRICO Duloxetine HCl (Duloxetine Hcl 60 Mg Capsule.Dr) 60 mg PO DAILY [facility] Last Admin: 12/01/24 08:03 Dose: 60 mg Documented By: ENRICO Gabapentin (Gabapentin 300 Mg Capsule) 600 mg PO TID@0800,1200,2000 [facility] Last Admin: 12/01/24 08:03 Dose: 600 mg Documented By: ENRICO Ibuprofen (Ibuprofen 600 Mg Tablet) 600 mg PO Q8H PRN PRN Reason: Pain, Moderate(Pain Scale 4-6) Last Admin: 11/28/24 08:56 Dose: 600 mg Documented By: ISELA Magnesium Hydroxide (Milk Of Magnesia 30 Ml Oral.Susp) 30 ml PO DAILY PRN PRN Reason: Constipation Magnesium Oxide (Magnesium Oxide 400 Mg Tablet) 400 mg PO DAILY [facility] Last Admin: 12/01/24 08:03 Dose: 400 mg Documented By: ENRICO Methadone HCl (Methadone Hcl 20 Mg/2 Ml Oral.Conc) 50 mg PO BID [facility] Last Admin: 12/01/24 07:57 Dose: 50 mg Documented By: ENRICO Co-signed By: MOON Nicotine Polacrilex (Nicotine Polacrilex 2 Mg Gum) 4 mg BUCCAL Q2H PRN PRN Reason: Nicotine Cravings Oxycodone HCl (Oxycodone Hcl Immed Release 5 Mg Tablet) 10 mg PO Q6H PRN PRN Reason: Opiate Withdrawal Last Admin: 12/01/24 08:01 Dose: 10 mg Documented By: ENRCIO Prazosin HCl (Prazosin Hcl 1 Mg Capsule) 2 mg PO BEDTIME [facility]; Protocol Last Admin: 11/30/24 20:14 Dose: 2 mg Documented By: SUDEEP Zolpidem Tartrate (Zolpidem Tartrate 5 Mg Tablet) 10 mg PO BEDTIME PRN PRN Reason: Insomnia Last Admin: 11/30/24 20:14 Dose: 10 mg Documented By: SUDEEP Labs 11/28/24 09:20 11/28/24 09:20 Assessment and Plan (1) Abscess of right forearm: Status: Acute (2) Prolonged QT interval: Status: Acute Plan 38-year-old female with a past medical history of polysubstance use, methadone maintenance, bipolar disorder who presented to the ED with suicidal ideation and symptoms of withdrawal. She is admitted inpatient psych for mood stabilization Polysubstance use/bipolar disorder/suicidal ideation Treatment per psychiatric team Abscess right forearm Switch to Ceftin per psych provider based on cultures S/P I& D 11/27/2024 Prolonged QTC Refused EKG on Sunday as well as this morning. Ideally QTC should be below 500 before methadone is resumed per cardiology Addiction Medicine and Cardiology following Plan is to dose methadone at 50 mg twice daily and oxycodone as needed Addiction Medicine following up with patient's outpatient provider Asthma Not in acute exacerbation Thank you for allowing me to participate in the care of this patient. Will follow as needed, please notify medical provider with any changes in condition or concerns. Quality Stroke Does the patient have a stroke diagnosis?: No VTE Prior VTE?: No VTE Risk Level:: Medical - low VTE Device Contraindication: Treatment Not Indicated VTE Drug Contraindication: N/A - Med Ordered
--- NOTE | 2024-12-01 12:17 | PM.EVENT ---
Event Note Date of Service: 12/01/24 Event Note: Addiction follow up note RE: QT prolongation and methadone dosing Patient currently on methadone 50mg BID and oxycodode 10mg PRN for withdrawal sx. T/W spoke to provider at [facility] (Renetta Galvin) Given background and history the following was recommended: -Change methadone dosing to QD --so 100mg QD -repeat EKG should be 5 days after dose change --Weds 12/03 PLEASE DO NOT ADMINISTER METHADONE ON WEDS UNTIL AFTER EKG IS COMPLETED -if QT has not improved, then discussion with patient about transitioning to buprenorphine will have to occur, as methadone may not be the safest option for patient. Time Spent With Patient Time: Total time managing care of this patient today ____ minutes.
[2024-12-01 19:59] VITALS: BP 109/62; PULSE 65; RESP 16; TEMP 37.1; O2SAT 95
[2024-12-02 07:29] VITALS: BP 117/65; PULSE 70; RESP 18; TEMP 36.6; O2SAT 99
[2024-12-02] MEDS: methADONE HCl 20 MG/2 ML ORAL.CONC 100 MG PO (08:04)
[2024-12-02] MEDS: oxyCODONE HCl Immed Release 5 MG TABLET 10 MG PO ×3 (08:06→20:15)
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
--- NOTE | 2024-12-02 13:48 | PM.EVENT ---
Event Note Date of Service: 12/02/24 Event Note: Attempted dressing change today. Discussed that I wanted to proceed with silver alginate loose packing to the open wound to promote healing. She adamently refused and stated that the nurse just changed the dressing and said it looked fine . Will attempt to return tomorrow to discuss wound care prior to her discharge. Time Spent With Patient Time: Total time managing care of this patient today ____ minutes.
[2024-12-02 19:45] VITALS: PULSE 68; RESP 16; TEMP 36.8; O2SAT 97
[2024-12-02 20:14] VITALS: BP 113/65
--- NOTE | 2024-12-03 07:00 | ECG_ITS ---
Test Reason : check qt Blood Pressure : */* mmHG Vent. Rate : 72 BPM Atrial Rate : 72 BPM P-R Int : 150 ms QRS Dur : 88 ms QT Int : 468 ms P-R-T Axes : 48 1 23 degrees QTcB Int : 512 ms Normal sinus rhythm Prolonged QT Abnormal ECG When compared with ECG of 28-Nov-2024 08:59, No significant change was found Referred By: Jeri Young Electronically Signed By: ZAY BRUNO MD
[2024-12-03] MEDS: oxyCODONE HCl Immed Release 5 MG TABLET 10 MG PO (07:54)
[2024-12-03] MEDS: Naloxone HCl Nasal TAKE HOME 4 MG SPRAY 8 MG NOSTRILALT (07:57)
[2024-12-03 08:00] VITALS: BP 121/78; PULSE 91; RESP 16; TEMP 36; O2SAT 94
[2024-12-03] MEDS: methADONE HCl 20 MG/2 ML ORAL.CONC 100 MG PO (08:12)
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
--- NOTE | 2024-12-03 09:06 | PM.EVENT ---
Event Note Date of Service: 12/03/24 Event Note: Addiction follow up note: Follow up EKG this morning QTc 512. Previous EKG QTc 550. Plan: -methadone 100mg this AM (dose at time of admission 150mg) -since patient is discharging today, EKGs, cardiology consult and provider notes to be sent to home OTP ([facility]) and guest dosing [facility] to determine ongoing dosing plan or potential transition to buprenorphine outpatient. Time Spent With Patient Time: Total time managing care of this patient today ____ minutes.
--- NOTE | 2024-12-03 11:14 | P.PNGS_ITS ---
Subjective Subjective Date of Service: 12/03/24 Interval history: * Patient agreeable to dressing change today. Denies pain. Physical Exam 2 Vital Signs: Vital Signs: Last Vital Signs Temp 96.8 F 12/03/24 08:00 Pulse 91 12/03/24 08:00 Resp 16 12/03/24 08:00 BP 121/78 12/03/24 08:00 Pulse Ox 94 12/03/24 08:00 O2 Del Method Room Air 12/03/24 08:00 BMI result Body Mass Index 32.2 Const: General: comfortable, no acute distress and alert Resp: Effort & Inspection: normal respiratory effort Extrem: Other: right forearm with no residual erythema or edema, I&D site now 1cm circular area, clean appearing, some exudative drainage- covered with silver alginate and allevyn foam pad Objective Data Active Medications Acetaminophen (Acetaminophen 325 Mg Tablet) 650 mg PO Q6H PRN PRN Reason: Headache/Pain, Scale 1-10 Last Admin: 11/27/24 08:22 Dose: 650 mg Documented By: ISELA Al Hydroxide/Mg Hydroxide (Magnesium Hydrox/Alum Hydrox 30 Ml Oral.Susp) 30 ml PO Q6H PRN PRN Reason: Heartburn/Nausea Aripiprazole (Aripiprazole 15 Mg Tablet) 15 mg PO DAILY [facility] Last Admin: 12/03/24 07:55 Dose: 15 mg Documented By: FILI Cefuroxime Axetil (Cefuroxime Axetil 500 Mg Tablet) 500 mg PO BID [facility] Stop: 12/05/24 21:01 Last Admin: 12/03/24 07:55 Dose: 500 mg Documented By: FILI Clonazepam (Clonazepam 1 Mg Tablet) 1 mg PO TID PRN PRN Reason: Anxiety Last Admin: 12/03/24 07:55 Dose: 1 mg Documented By: FILI Duloxetine HCl (Duloxetine Hcl 60 Mg Capsule.) 60 mg PO DAILY [facility] Last Admin: 12/03/24 07:55 Dose: 60 mg Documented By: FILI Gabapentin (Gabapentin 300 Mg Capsule) 600 mg PO TID@0800,1200,2000 [facility] Last Admin: 12/03/24 07:54 Dose: 600 mg Documented By: FILI Ibuprofen (Ibuprofen 600 Mg Tablet) 600 mg PO Q8H PRN PRN Reason: Pain, Moderate(Pain Scale 4-6) Last Admin: 11/28/24 08:56 Dose: 600 mg Documented By: ISELA Magnesium Hydroxide (Milk Of Magnesia 30 Ml Oral.Susp) 30 ml PO DAILY PRN PRN Reason: Constipation Magnesium Oxide (Magnesium Oxide 400 Mg Tablet) 400 mg PO DAILY JOAQUIN Last Admin: 12/03/24 07:54 Dose: 400 mg Documented By: FILI Nicotine Polacrilex (Nicotine Polacrilex 2 Mg Gum) 4 mg BUCCAL Q2H PRN PRN Reason: Nicotine Cravings Oxycodone HCl (Oxycodone Hcl Immed Release 5 Mg Tablet) 10 mg PO Q6H PRN PRN Reason: Opiate Withdrawal Last Admin: 12/03/24 07:54 Dose: 10 mg Documented By: FILI Prazosin HCl (Prazosin Hcl 1 Mg Capsule) 2 mg PO BEDTIME JOAQUIN; Protocol Last Admin: 12/02/24 20:14 Dose: 2 mg Documented By: SERENA Zolpidem Tartrate (Zolpidem Tartrate 5 Mg Tablet) 10 mg PO BEDTIME PRN PRN Reason: Insomnia Last Admin: 12/02/24 20:15 Dose: 10 mg Documented By: SERENA Labs 11/28/24 09:20 11/28/24 09:20 Procedures Date of Service Date of Service: 12/03/24 Progress Note: A&P Assessment and plan (1) Abscess of right forearm: Status: Acute Plan Right forearm cellulitis and abscess- now completely resolved. Small wound from I&D site clean appearing, with some scant exudative drainage. Silver alginate placed on wound bed followed by allevyn foam pad. Instructed patient on local wound care with silver alginate to wound (change every other day) and cover with dry dressing which can be changed daily and as needed. Provided with silver alginate. Time Spent With Patient Time: Total time managing care of this patient today ____ minutes. Quality Stroke Does the patient have a stroke diagnosis?: No VTE Prior VTE?: No VTE Risk Level:: Medical - low VTE Device Contraindication: Treatment Not Indicated VTE Drug Contraindication: N/A - Med Ordered
== END 2024-12-03 11:28 | disposition home or self-care (01) | DRG 740 ==
LOC: HO.ED 14:07 → HO.PADLT16 11-24 14:46
PROVIDERS: Nurse Practitioner Family; Nurse Practitioner Psychiatric/Mental Health; Physician Assistant Medical; Admitting Provider Registered Nurse; Emergency Provider Emergency Medicine; Responsible Provider Registered Nurse; Visit Provider Psychiatry & Neurology Psychiatry
DX: F31.9 Bipolar disorder, unspecified (principal); R45.851 Suicidal ideations; F43.10 Post-traumatic stress disorder, unspecified; F11.20 Opioid dependence, uncomplicated; F14.10 Cocaine abuse, uncomplicated; J45.909 Unspecified asthma, uncomplicated; L02.413 Cutaneous abscess of right upper limb; F19.90 Other psychoactive substance use, unspecified, uncomplicated; R94.31 Abnormal electrocardiogram [ECG] [EKG]; Z20.822 Contact with and (suspected) exposure to COVID-19; Z91.148 Patient's other noncompliance with medication regimen for other reason; Z87.891 Personal history of nicotine dependence; Z79.899 Other long term (current) drug therapy
CPT/HCPCS: 36415; 80051; 80053; 80061; 80143; 80179; 80307; 81001; 81025; 83036; 83735; 85025; 87070; 87077; 87147; 87186; 87205; 87635; 93005; 93306; 99285; J2003; S9485

== ENCOUNTER → 2024-11-24 09:59 | Outpatient (BNV) | payer MEDICAID, SELFPAY | PROVIDERS: Admitting Provider Registered Nurse; Emergency Provider Emergency Medicine; Visit Provider Internal Medicine | DX: R94.31 Abnormal electrocardiogram [ECG] [EKG] (principal); Z13.6 Encounter for screening for cardiovascular disorders | CPT/HCPCS: 93010 ==

== ENCOUNTER 2024-11-24 14:46 | Outpatient (BNV) | payer MEDICAID, SELFPAY | END 2024-11-28 06:00 | PROVIDERS: Admitting Provider Registered Nurse; Emergency Provider Emergency Medicine; Responsible Provider Registered Nurse; Visit Provider Internal Medicine | DX: R94.31 Abnormal electrocardiogram [ECG] [EKG] (principal); Z13.6 Encounter for screening for cardiovascular disorders | CPT/HCPCS: 93010 ==

== ENCOUNTER 2024-11-24 14:46 | Outpatient (BNV) | payer MEDICAID, SELFPAY | END 2024-11-26 06:00 | PROVIDERS: Admitting Provider Registered Nurse; Emergency Provider Emergency Medicine; Responsible Provider Registered Nurse; Visit Provider Internal Medicine | DX: R94.31 Abnormal electrocardiogram [ECG] [EKG] (principal) | CPT/HCPCS: 93010 ==

== ENCOUNTER 2024-11-24 14:46 | Outpatient (BNV) | payer MEDICAID, SELFPAY | END 2024-11-25 10:38 | PROVIDERS: Admitting Provider Registered Nurse; Emergency Provider Emergency Medicine; Visit Provider Internal Medicine | DX: R00.1 Bradycardia, unspecified (principal) | CPT/HCPCS: 93010 ==

== ENCOUNTER 2024-11-24 14:46 | Outpatient (BNV) | payer MEDICAID, SELFPAY | END 2024-11-27 09:00 | PROVIDERS: Admitting Provider Registered Nurse; Emergency Provider Emergency Medicine; Responsible Provider Registered Nurse; Visit Provider Internal Medicine | DX: R94.31 Abnormal electrocardiogram [ECG] [EKG] (principal); Z13.6 Encounter for screening for cardiovascular disorders | CPT/HCPCS: 93010 ==

== ENCOUNTER 2024-11-24 14:46 | Outpatient (BNV) | payer MEDICAID, SELFPAY | END 2024-12-03 07:00 | PROVIDERS: Admitting Provider Registered Nurse; Emergency Provider Emergency Medicine; Responsible Provider Registered Nurse; Visit Provider Internal Medicine Cardiovascular Disease | DX: Z13.6 Encounter for screening for cardiovascular disorders (principal) | CPT/HCPCS: 93010 ==

== ENCOUNTER → 2024-11-24 14:46 | Outpatient (BNV) | payer MEDICAID, SELFPAY | PROVIDERS: Admitting Provider Registered Nurse; Emergency Provider Emergency Medicine; Responsible Provider Registered Nurse; Visit Provider Internal Medicine | DX: R94.31 Abnormal electrocardiogram [ECG] [EKG] (principal); F11.90 Opioid use, unspecified, uncomplicated; F19.10 Other psychoactive substance abuse, uncomplicated | CPT/HCPCS: 99223 ==

== ENCOUNTER → 2024-11-24 14:46 | Outpatient (BNV) | payer MEDICAID, SELFPAY | PROVIDERS: Admitting Provider Registered Nurse; Emergency Provider Emergency Medicine; Visit Provider Nurse Practitioner Family | DX: L02.413 Cutaneous abscess of right upper limb (principal); R94.31 Abnormal electrocardiogram [ECG] [EKG] | CPT/HCPCS: 99231; 99499 ==

== ENCOUNTER → 2024-11-24 14:46 | Outpatient (BNV) | payer MEDICAID, SELFPAY | PROVIDERS: Admitting Provider Registered Nurse; Emergency Provider Emergency Medicine; Responsible Provider Registered Nurse | DX: L02.413 Cutaneous abscess of right upper limb (principal) | CPT/HCPCS: 99232; 99499 ==

== ENCOUNTER → 2024-11-24 14:46 | Outpatient (BNV) | payer OTHER, SELFPAY | PROVIDERS: Admitting Provider Registered Nurse; Emergency Provider Emergency Medicine; Responsible Provider Registered Nurse; Visit Provider Nurse Practitioner Psychiatric/Mental Health | DX: F11.90 Opioid use, unspecified, uncomplicated (principal) | CPT/HCPCS: 99499 ==